=== PATIENT | male | born 1945 | race Caucasian/White ===

== ENCOUNTER 2019-09-03 14:26 | Emergency (ER) | payer MEDICARE, SELFPAY ==
[2019-09-03 14:31] VITALS: BP 107/76; PULSE 98; RESP 20; TEMP 36.1; O2SAT 100
--- NOTE | 2019-09-03 14:47 | ED.EPISTAXIS ---
HPI - Epistaxis General Chief complaint: Epistaxis Stated complaint: Nose bleed Time Seen by Provider: 09/03/19 14:40 Source: patient and RN notes reviewed Mode of arrival: ambulatory Limitations: no limitations History of Present Illness HPI Narrative: Patient presents today complaining of a left-sided epistaxis since 7:00 this morning. States that the bleeding slows down when he is laying down, but starts again when he sits up. It started bleeding when he woke up this morning. Denies pain. Patient takes Plavix. MD complaint: epistaxis Location: left nostril Related Data Home Medications Medication Instructions Recorded Confirmed acetaminophen 500 mg tablet 500 mg PO Q6H PRN 07/18/19 dutasteride 0.5 mg capsule 0.5 mg PO DAILY 07/18/19 fluticasone propionate 50 2 spray NASAL DAILY 07/18/19 mcg/actuation nasal spray,suspension imipramine HCl 10 mg tablet 30 mg PO DAILY tablet 07/18/19 metformin 500 mg tablet 1,000 mg PO BID tablet 07/18/19 rosuvastatin 40 mg tablet 40 mg PO DAILY 07/18/19 terazosin 5 mg capsule 5 mg PO DAILY 07/18/19 trazodone 100 mg tablet 100 mg PO DAILY tablet 07/18/19 ferrous [id number] conc cap PO 09/03/19 Allergies Allergy/AdvReac Type Severity Reaction Status Date / Time Sulfa (Sulfonamide Allergy Unknown Verified 07/07/17 18:49 Antibiotics) Review of Systems Review of Systems: Narrative: CONSTITUTIONAL: Denies body aches, fever, chills, or sweats. EYES: Denies visual changes, redness, or discharge. ENT: Denies rhinorrhea, congestion, sore throat, or otalgia.+ Epistaxis CARDIOVASCULAR: Denies chest pain, palpitations, or edema. RESPIRATORY: Denies cough or dyspnea. GASTROINTESTINAL: Denies abdominal pain, nausea, vomiting, or diarrhea. GENITOURINARY: Denies dysuria or hematuria. SKIN: Denies rash, itching, or wounds. MUSCULOSKELETAL: Denies back pain, joint pain, or myalgia. NEUROLOGIC: Denies headache, numbness, tingling, or weakness. PSYCH: Denies depression or anxiety. [facility] Social History Social History Smoking status: Never smoker Alcohol intake: never Comments At time of signature, I have reviewed and agree with nursing past medical, surgical, social and family history unless otherwise noted. Please see nursing chart for further information. There is no relevant family history pertinent to the presenting complaint Exam Narrative: Exam Narrative: GENERAL: Well-appearing, well-nourished, and in no acute distress. HEAD: Normocephalic, atraumatic. EYES: EOMI. No redness or drainage. Conjunctivae normal. ENT: Mucous membranes pink and moist. Small amount of blood in posterior oropharynx, but no clot noted. Visualization of the turbinates show a posterior source of bleeding, but direct visualization of source is impossible. No anterior source identified. NECK: Normal AROM. Supple. No lymphadenopathy. CHEST: No respiratory distress. EXTREMITIES: Normal range of motion. No edema. SKIN: Warm, dry, no rash. NEURO: No focal deficits. Alert and oriented x3. Gait steady. PSYCH: Normal affect. No signs of depression or anxiety. Course Course Emergency Course: 1608- Discussed pt with Dr. Vaz in [facility] ER for possible transfer. States that [facility] does not have an ENT sap ppm consultant and to transfer pt to higher level of care. Patient requesting transfer to [facility]. 1613-discussed patient with SHARIFA Fernandez at [facility] ER. Dr. Cat will be the accepting physician for transfer via private vehicle. Vital Signs Vital signs: Vital Signs Temperature 96.9 F L 09/03/19 14:31 Pulse Rate 98 09/03/19 14:31 Respiratory Rate 09/03/19 14:31 Blood Pressure 107/76 09/03/19 14:31 Pulse Oximetry 100 09/03/19 14:31 Temperature 96.9 F L 09/03/19 14:31 Pulse Rate 98 09/03/19 14:31 Respiratory Rate 09/03/19 14:31 Blood Pressure
[2019-09-03] MEDS: PHENYLEPHRINE 1% NA SPR (*BKC) 15 ML BTL 1 SPRAY NASAL (15:07)
== END 2019-09-03 16:22 | disposition short-term general hospital (02) ==
PROVIDERS: Emergency Provider Nurse Practitioner; PCP Family Medicine
DX: R04.0 Epistaxis (principal); Z95.5 Presence of coronary angioplasty implant and graft; E78.00 Pure hypercholesterolemia, unspecified; I10 Essential (primary) hypertension
CPT/HCPCS: 30901; 99212; A9270; G0463

== ENCOUNTER 2019-09-05 16:16 | Emergency (ER) | payer MEDICARE, SELFPAY ==
--- NOTE | 2019-09-05 16:17 | ED.EPISTAXIS ---
HPI - Epistaxis General Chief complaint: Epistaxis Stated complaint: remove nose plug Time Seen by Provider: 09/05/19 16:30 Source: patient and RN notes reviewed Mode of arrival: ambulatory Limitations: no limitations History of Present Illness HPI Narrative: 74 old male presents for removal of a Rhino Rocket that was placed 2 days ago in the left nostril. Reports he has been off Plavix for 2 days due to the nosebleed. Reports throughout the 2 days he has had the Rhino Rocket in place, he has had very mild dripping of blood from the right nostril. MD complaint: epistaxis Related Data Home Medications Medication Instructions Recorded Confirmed acetaminophen 500 mg tablet 500 mg PO Q6H PRN 07/18/19 dutasteride 0.5 mg capsule 0.5 mg PO DAILY 07/18/19 09/05/19 fluticasone propionate 50 2 spray NASAL DAILY 07/18/19 09/05/19 mcg/actuation nasal spray,suspension imipramine HCl 10 mg tablet 30 mg PO DAILY tablet 07/18/19 09/05/19 metformin 500 mg tablet 1,000 mg PO BID tablet 07/18/19 09/05/19 rosuvastatin 40 mg tablet 40 mg PO DAILY 07/18/19 09/05/19 terazosin 5 mg capsule 5 mg PO DAILY 07/18/19 09/05/19 trazodone 100 mg tablet 100 mg PO DAILY tablet 07/18/19 09/05/19 ferrous [id number] conc 1 cap PO 09/03/19 amoxicillin-pot clavulanate tablet 09/05/19 Allergies Allergy/AdvReac Type Severity Reaction Status Date / Time Sulfa (Sulfonamide Allergy Unknown Verified 07/07/17 18:49 Antibiotics) Review of Systems Review of Systems: Narrative: CONSTITUTIONAL: Denies malaise, chills, sweats, or fever. EYES: Denies visual changes, redness, or discharge. ENT: Denies rhinorrhea, congestion, sinus pain, otalgia or sore throat. Reports mild continued [place] CARDIOVASCULAR: Denies chest pain, palpitations, or edema. RESPIRATORY: Denies cough or dyspnea. SKIN: Denies rash or itching. NEUROLOGIC: Denies numbness, weakness, or headache. All systems reviewed & are unremarkable except as noted in HPI and below PMFSH Social History Social History Smoking status: Never smoker Alcohol intake: never Comments At time of signature, agree with nursing past medical, surgical, social and family history. There is no relevant family history pertinent to the presenting complaint Exam Narrative: Exam Narrative: GENERAL: Well-appearing, well-nourished, and in no acute distress. HEAD: Normocephalic, atraumatic. EYES: PERRLA, conjunctivae clear ENT: Nares patent, left turbinates erythematous, no hematoma noted, no visible source of bleeding, no rhinorrhea very small amount of epistaxis from both nostrils. Mucous membranes moist. TM pearly reddy with sharp light reflex bilaterally; no tragal tenderness. Oropharynx without erythema or lesions. Tonsils not enlarged and without exudate. NECK: Supple. No lymphadenopathy. CHEST: No respiratory distress. Speaks in full sentences. HEART: Regular rate and rhythm. SKIN: Warm, dry, no rash. NEURO: Alert and oriented x3. PSYCH: Normal mood and affect Course Course Emergency Course: Patient reports dabbing his right nostril with the tissue over the last 2 days with very small amount of bleeding noted. 6 mL of air removed from cuff of Rhino Rocket, fully deflated. Intact Rhino Rocket successfully removed, no rebleeding noted. Patient is aware of and agrees to treatment plan. Anticipatory guidance given. Patient agrees to follow-up as directed and is aware of reasons to seek care at the emergency department. Portions of this record may have been created with voice recognition software Vital Signs Vital signs: Vital Signs Temperature 97.3 F L 09/05/19 16:25 Pulse Rate 95 09/05/19 16:25 Respiratory Rate 16 09/05/19 16:25 Blood Pressure 106/80 09/05/19 16:25 Pulse Oximetry 100 09/05/19 16:25 Temperature 97.3 F L 09/05/19 16:25 Pulse Rate 95 09/05/19 16:25 Respiratory Rate 16 09/05/19 16
[2019-09-05 16:25] VITALS: BP 106/80; PULSE 95; RESP 16; TEMP 36.3; O2SAT 100
--- NOTE | 2019-09-05 16:50 | PC.NURSE ---
Rhino rocket removed from left nares by Hugo Rivas CLINICAL RESEARCH DIRECTOR without difficulty--minimal dripping of blood noted. Pt norris well
== END 2019-09-05 16:47 | disposition home or self-care (01) ==
PROVIDERS: Emergency Provider Nurse Practitioner; PCP Family Medicine
DX: R04.0 Epistaxis (principal); Z86.73 Personal history of transient ischemic attack (TIA), and cerebral infarction without residual deficits; Z95.1 Presence of aortocoronary bypass graft; E78.00 Pure hypercholesterolemia, unspecified; I10 Essential (primary) hypertension; N40.0 Benign prostatic hyperplasia without lower urinary tract symptoms; E11.9 Type 2 diabetes mellitus without complications
CPT/HCPCS: 99211; G0463

== ENCOUNTER 2019-09-11 00:43 | Day surgery (SDC) | payer MEDICARE, SELFPAY ==
[2019-09-05 13:24] VITALS: BMI 25.4
--- NOTE | 2019-09-10 17:32 | WPDANESEPP ---
Anes - Eval Pre Procedure Procedure: Operation Date: 09/11/19 08:00 Proposed Procedures p Esophagogastroduodenoscopy & Colonoscopy - Casey Hathaway MD Date/Time: 09/10/19 17:32 Pre Op Diagnosis: Iron Deficiency Anemia Patient Data Age: 74 Gender: M Height: 6 ft 2 in Weight: 90 kg Allergies Allergy/AdvReac Type Severity Reaction Status Date / Time Sulfa (Sulfonamide Allergy Unknown Verified 07/07/17 18:49 Antibiotics) Home Medications Medication Instructions Recorded Confirmed Type acetaminophen 500 mg tablet 500 mg PO Q6H PRN 07/18/19 History dutasteride 0.5 mg capsule 0.5 mg PO DAILY 07/18/19 09/05/19 History fluticasone propionate 50 2 spray NASAL DAILY 07/18/19 09/05/19 History mcg/actuation nasal spray,suspension imipramine HCl 10 mg tablet 30 mg PO DAILY tablet 07/18/19 09/05/19 History metformin 500 mg tablet 1,000 mg PO BID tablet 07/18/19 09/05/19 History rosuvastatin 40 mg tablet 40 mg PO DAILY 07/18/19 09/05/19 History terazosin 5 mg capsule 5 mg PO DAILY 07/18/19 09/05/19 History trazodone 100 mg tablet 100 mg PO DAILY tablet 07/18/19 09/05/19 History amlodipine 10 mg tablet 10 mg PO DAILY #90 tablet 07/29/19 09/05/19 Rx clopidogrel 75 mg tablet 75 mg PO DAILY #90 tablet 07/29/19 09/05/19 Rx metoprolol succinate 25 mg 25 mg PO DAILY #90 tablet 07/29/19 09/05/19 Rx tablet,extended release 24 hr ramipril 10 mg capsule 10 mg PO DAILY #90 cap 07/29/19 09/05/19 Rx ferrous [id number] conc 1 cap PO 09/03/19 History amoxicillin-pot clavulanate tablet 09/05/19 History Patient hx anesthesia problems: none Family hx anesthesia problems: none PMFSH Past Medical History Medical History Atherosclerotic heart disease of [place] coronary artery with other forms of angina pectoris Diabetic nephropathy Elevated prostate specific antigen [PSA] Essential (primary) hypertension Iron deficiency anemia secondary to blood loss (chronic) Mixed hyperlipidemia Type 2 diabetes mellitus with unspecified complications Unspecified transient cerebral ischemia Surgical History Surgical History Status post aorto-coronary artery bypass graft Social History Social History Smoking status: Never smoker Alcohol intake: never Exam Day of Procedure 09/10/19 17:32
[2019-09-11 07:09] VITALS: BP 136/87; PULSE 94; RESP 14; TEMP 35.9; O2SAT 100
[2019-09-11 07:17] LABS: Glucose Point of Care 244 (65-105)
[2019-09-11] MEDS: LACTATED RINGERS 1,000 ML 150 ML IV CONT (07:25)
--- NOTE | 2019-09-11 07:38 | WPDANESEFPP ---
Anes - Eval Final PreProcedure Day of Procedure 09/11/19 07:38 Patient weight: normal Heart: regular rate and rhythm Lungs: clear to auscultation Airway: Mallampati scale class II Neurological: alert and oriented Last oral intake: >/= 8 hours ASA classification: III Emergent: no Anesthetic plan: proceed Anesthesia type and monitoring: general GIVS and standard monitoring Informed Consent: The patient's anesthetic plan and its attendant risks and benefits were discussed with the patient/family/POA. Questions were solicited and answers provided to the satisfaction of the patient/family/POA.
--- NOTE | 2019-09-11 08:01 | WPDGICN ---
Assessment and Plan Additional Plan This is a 74-year-old white male patient seen in evaluation at the request of Dr. Shah. Patient also followed by Dr. Brar, Hematology. Patient has a history of coronary artery bypass grafting in August 2018. In April of 2019 he was identified as having iron deficiency anemia. Patient has been seen by Hematology. GI evaluation is felt to be indicated. Patient denies any obvious signs of GI blood loss. He denies abdominal pain he has had no obvious bleeding. He past history is significant for peptic ulcer disease approximately 4 years ago. Past medical history is significant for atherosclerotic heart disease. Status post coronary artery bypass grafting August 2018. Been treated for diabetes. Hyperlipidemia. Has a history of a TIA. Current medications include amlodipine, amoxicillin, Plavix, imipramine, metformin, metoprolol, ramipril, rosuvastatin, terazosin, trazodone. He has an allergy to sulfa. Family history is noncontributory. Physical exam reveals patient to be alert. Vital signs stable. HEENT exam unremarkable. Lungs are clear to auscultation and percussion. Heart is without murmur or extra sounds. Abdominal exam bowel sounds are present soft nontender with no hepatosplenomegaly. Digital external rectal exam is normal. Laboratory red tests reveal a hemoglobin 11.1, macro 38.7, MCV 68. Serum iron is 33, TIBC 421, a% saturation, ferritin of 37. Impression 1. Iron deficiency anemia. 2. Atherosclerotic heart disease. Patient is is status post coronary artery bypass grafting. He remains on Plavix which is a risk factor for bleeding. 3. Distant history of peptic ulcer disease. Plan is to evaluate further with both colonoscopy an EGD. Further recommendations will be given after endoscopy. Iron replacement will be held briefly prior to endoscopy. GI Consult Note Consult date/time: 09/11/19 08:01 HPI: Bhanu Delgado is a 74 year old male [facility] Past Medical History Medical History Atherosclerotic heart disease of [place] coronary artery with other forms of angina pectoris Diabetic nephropathy Elevated prostate specific antigen [PSA] Essential (primary) hypertension Iron deficiency anemia secondary to blood loss (chronic) Mixed hyperlipidemia Type 2 diabetes mellitus with unspecified complications Unspecified transient cerebral ischemia Surgical History Surgical History Status post aorto-coronary artery bypass graft Social History Social History Smoking status: Never smoker Alcohol intake: never Meds Home Medications and Allergies Home Medications Medication Instructions Recorded Confirmed Type dutasteride 0.5 mg capsule 0.5 mg PO DAILY 07/18/19 09/05/19 History fluticasone propionate 50 2 spray NASAL DAILY 07/18/19 09/05/19 History mcg/actuation nasal spray,suspension imipramine HCl 10 mg tablet 30 mg PO DAILY tablet 07/18/19 09/05/19 History metformin 500 mg tablet 1,000 mg PO BID tablet 07/18/19 09/05/19 History rosuvastatin 40 mg tablet 40 mg PO DAILY 07/18/19 09/05/19 History terazosin 5 mg capsule 5 mg PO DAILY 07/18/19 09/05/19 History trazodone 100 mg tablet 100 mg PO DAILY tablet 07/18/19 09/05/19 History amlodipine 10 mg tablet 10 mg PO DAILY #90 tablet 07/29/19 09/05/19 Rx clopidogrel 75 mg tablet 75 mg PO DAILY #90 tablet 07/29/19 09/05/19 Rx metoprolol succinate 25 mg 25 mg PO DAILY #90 tablet 07/29/19 09/05/19 Rx tablet,extended release 24 hr ramipril 10 mg capsule 10 mg PO DAILY #90 cap 07/29/19 09/05/19 Rx amoxicillin-pot clavulanate 1 tablet PO DAILY 09/11/19 09/11/19 History Allergies Allergy/AdvReac Type Severity Reaction Status Date / Time Sulfa (Sulfonamide Allergy Unknown ITCHING/SOB Verified 09/11/19 07:01 Antibiotics) Vital S
[2019-09-11] MEDS: BENZOCAINE (*SP) 60 ML SPRAY CAN (HURRICAINE) 1 SPRAY MUCOUS MEM (08:15)
[2019-09-11 08:42] VITALS: BP 117/74; PULSE 71; RESP 21; O2SAT 98
[2019-09-11 08:46] LABS: Glucose Point of Care 219 (65-105)
[2019-09-11 08:52] VITALS: BP 117/78; PULSE 70; RESP 20; O2SAT 99
[2019-09-11 09:02] VITALS: BP 125/78; PULSE 71; RESP 20; O2SAT 100
[2019-09-11 09:12] VITALS: BP 131/89; PULSE 74; RESP 22; O2SAT 100
== END 2019-09-11 09:17 | disposition home or self-care (01) ==
PROVIDERS: PCP Family Medicine; Visit Provider Internal Medicine Gastroenterology
PROC: 0DJ08ZZ Inspection of Upper Intestinal Tract, Via Natural or Artificial Opening Endoscopic (ICD-10-PCS; CPT 43235; principal; 2019-09-11 08:00)
DX: D50.0 Iron deficiency anemia secondary to blood loss (chronic) (principal); K64.8 Other hemorrhoids; I10 Essential (primary) hypertension; I25.10 Atherosclerotic heart disease of native coronary artery without angina pectoris; E11.21 Type 2 diabetes mellitus with diabetic nephropathy; E78.2 Mixed hyperlipidemia; G45.9 Transient cerebral ischemic attack, unspecified; Z79.84 Long term (current) use of oral hypoglycemic drugs; Z79.02 Long term (current) use of antithrombotics/antiplatelets; Z95.1 Presence of aortocoronary bypass graft; Z87.11 Personal history of peptic ulcer disease
CPT/HCPCS: 45378; 43239; 87081; J2001; J2704; J7120

== ENCOUNTER → 2019-09-26 06:57 | Day surgery (SDC) | payer MEDICARE, SELFPAY ==
--- NOTE | 2019-09-26 06:26 | SUR.OPER ---
Patient brought to GI Lab. Instructions for patient undergoing Capsule Endoscopy reviewed with patient. Consent form signed. Sensor array applied to patient's abdomen and connected to recorded. Patient swallowed capsule with 2 cups of water infused with Simethicone. Patient instructed they may have clear liquids at 0830 this AM and eat or drink at 1030 this AM. Patient instructed to return to GI Lab at 1500 this afternoon for removal of recording device and to call [phone] or to return to the hospital if any nausea and vomiting or abdominal pain is experienced.
== END ==
PROVIDERS: PCP Family Medicine; Visit Provider Internal Medicine Gastroenterology
PROC: 0DJ07ZZ Inspection of Upper Intestinal Tract, Via Natural or Artificial Opening (ICD-10-PCS; CPT 91110; principal; 2019-09-26 07:00)
DX: D50.9 Iron deficiency anemia, unspecified (principal)
CPT/HCPCS: 91110

== ENCOUNTER 2019-09-29 12:49 | Outpatient (CLI) | payer MEDICARE, SELFPAY ==
--- NOTE | ~2019-09-29 | XR_ITS ---
EXAMINATION: XR abdomen/kub 1V DATE: 09/29/2019 13:11 INDICATION: Capsule study for anemia TECHNIQUE: A supine view of the abdomen on 2 radiographs was obtained. COMPARISON: CT dated 07/07/2017 FINDINGS: A couple surgical clips possibly related to prior coronary artery bypass grafting and likely epicardi al pacemaker lead project over the heart and medial left lung base. No other radiopaque foreign julio césar s in the visualized abdomen or pelvis. The lateral side of the descending colon at the left flank is excluded from the [id number]. Normal bowel gas pattern with no dilated loops of bowel to suggest o bstruction. IMPRESSION: 1. Normal bowel gas pattern with no evident radiopaque capsule identified. Of note portion of the lef t flank in the lateral wall of the descending colon is excluded from the [id number]. Reviewed, dictated and finalized at location A. ZENSHIP TEACHER IMPRESSION: 1. Normal bowel gas pattern with no evident radiopaque capsule identified. Of n ote portion of the left flank in the lateral wall of the descending colon is ex cluded from the [id number].
== END 2019-09-29 12:50 | disposition home or self-care (01) ==
LOC: ANHIMG 12:58
PROVIDERS: PCP Family Medicine; Visit Provider Internal Medicine Gastroenterology
DX: D64.9 Anemia, unspecified (principal)
CPT/HCPCS: 74018

== ENCOUNTER 2019-10-10 11:01 | Outpatient (CLI) | payer MEDICARE, SELFPAY ==
[2019-10-10 11:19] LABS: Basophils Absolute Auto 0.1 K/mm3 (0.0-0.1); Basophils Percent Auto 0.7 % (0.2-1.2); Eosinophils Absolute Auto 0.3 K/mm3 (0-0.3); Eosinophils Percent Auto 4.1 % (0-4.4); Hematocrit 48.2 % (42.0-52.0); Hemoglobin 15.3 g/dL (14.0-18.0); Immature Granulocyte Absolute 0.01 K/mm3 (0.00-0.031); Immature Granulocyte Percent A 0.1 % (0-0.5); Lymphocytes Absolute Auto 1.56 K/mm3 (0.9-3.2); Lymphocytes Percent Auto 21.8 % (18.3-44.2); Mean Corpuscular HGB Conc 31.7 g/dl (32-36); Mean Corpuscular Hemoglobin 24.3 pg (26-34); Mean Corpuscular Volume 76.5 fl (80-100); Mean Platelet Volume 9.1 fl (7.4-10.4); Monocytes Absolute Auto 0.4 K/mm3 (0.1-0.6); Monocytes Percent Auto 6.2 % (2.6-8.5); Neutrophils Absolute Auto 4.8 K/mm3 (1.3-6.7); Neutrophils Percent Auto 67.1 % (45.5-73.1); Platelet Count Result 257 k/mm3 (150-375); Red Cell Distribution Width 20.7 % (11.5-14.5); White Blood Count 7.1 K/mm3 (4.5-10.0)
[2019-10-17 16:10] LABS: CALR Exon 9 Mutation Not Detected (Not Detected); CSF3R Exon 14/17 Mutation Not Detected (Not Detected); JAK2 Exon 12 Mutation Not Detected (Not Detected); JAK2 V617F Mutation Not Detected (Not Detected); MPL Exon 10 Mutation Not Detected (Not Detected); Specimen Source Blood
== END 2019-10-10 11:02 | disposition home or self-care (01) ==
LOC: ANHLAB 11:03
PROVIDERS: PCP Family Medicine; Visit Provider Internal Medicine Hematology & Oncology
DX: D75.1 Secondary polycythemia (principal)
CPT/HCPCS: 36415; 81219; 81270; 81402; 81403; 81479; 85025

== ENCOUNTER 2020-12-03 09:53 | Outpatient (CLI) | payer MEDICARE, SELFPAY ==
[2020-12-03 10:12] LABS: Basophils Absolute Auto 0.1 K/mm3 (0.0-0.1); Basophils Percent Auto 1.2 % (0.2-1.2); Eosinophils Absolute Auto 1.1 K/mm3 (0-0.3); Eosinophils Percent Auto 13.2 % (0-4.4); Hematocrit 53.4 % (42.0-52.0); Hemoglobin 17.9 g/dL (14.0-18.0); Immature Granulocyte Absolute 0.02 K/mm3 (0.00-0.031); Immature Granulocyte Percent A 0.2 % (0-0.5); Lymphocytes Absolute Auto 1.97 K/mm3 (0.9-3.2); Lymphocytes Percent Auto 23.1 % (18.3-44.2); Mean Corpuscular HGB Conc 33.5 g/dl (32-36); Mean Corpuscular Hemoglobin 27.7 pg (26-34); Mean Corpuscular Volume 82.5 fl (80-100); Mean Platelet Volume 8.5 fl (7.4-10.4); Monocytes Absolute Auto 0.5 K/mm3 (0.1-0.6); Monocytes Percent Auto 5.5 % (2.6-8.5); Neutrophils Absolute Auto 4.9 K/mm3 (1.3-6.7); Neutrophils Percent Auto 56.8 % (45.5-73.1); Platelet Count Result 216 k/mm3 (150-375); Red Blood Count 6.47 M/mm3 (4.6-6.20); Red Cell Distribution Width 13.4 % (11.5-14.5); White Blood Count 8.5 K/mm3 (4.5-10.0)
[2020-12-03 13:54] LABS: Iron 83 ug/dL (49-181)
[2020-12-03 13:56] LABS: Anion Gap 7 mmol/L (8-16); Blood Urea Nitrogen 18 mg/dL (9-20); Calcium 9.7 mg/dL (8.4-10.2); Carbon Dioxide 27 mmol/L (22-30); Chloride 104 mmol/L (98-107); Estimated Glomerular Filt Rate > 60; Glucose 130 mg/dL (75-110); Potassium 5.1 mmol/L (3.4-5.0); Sodium 138 mmol/L (137-145)
[2020-12-03 14:03] LABS: Percent Iron Saturation 21 % (20-50)
== END 2020-12-03 09:54 | disposition home or self-care (01) ==
PROVIDERS: PCP Family Medicine; Visit Provider Internal Medicine Hematology & Oncology
DX: D50.9 Iron deficiency anemia, unspecified (principal)
CPT/HCPCS: 36415; 80048; 82728; 83540; 83550; 85025

== ENCOUNTER 2021-04-08 09:30 | Outpatient (CLI) | payer MEDICARE, SELFPAY ==
[2021-04-08 09:49] LABS: Basophils Absolute Auto 0.1 K/mm3 (0.0-0.1); Eosinophils Absolute Auto 0.4 K/mm3 (0-0.3); Eosinophils Percent Auto 5.2 % (0-4.4); Hematocrit 51.7 % (42.0-52.0); Immature Granulocyte Absolute 0.02 K/mm3 (0.00-0.031); Immature Granulocyte Percent A 0.3 % (0-0.5); Lymphocytes Absolute Auto 2.06 K/mm3 (0.9-3.2); Mean Corpuscular HGB Conc 32.9 g/dl (32-36); Mean Corpuscular Hemoglobin 26.4 pg (26-34); Mean Corpuscular Volume 80.3 fl (80-100); Mean Platelet Volume 8.5 fl (7.4-10.4); Monocytes Absolute Auto 0.5 K/mm3 (0.1-0.6); Monocytes Percent Auto 6.8 % (2.6-8.5); Neutrophils Absolute Auto 4.8 K/mm3 (1.3-6.7); Neutrophils Percent Auto 60.7 % (45.5-73.1); Platelet Count Result 252 k/mm3 (150-375); Red Blood Count 6.44 M/mm3 (4.6-6.20); Red Cell Distribution Width 13.3 % (11.5-14.5); White Blood Count 7.9 K/mm3 (4.5-10.0)
== END 2021-04-08 09:31 | disposition home or self-care (01) ==
PROVIDERS: PCP Family Medicine; Visit Provider Internal Medicine Hematology & Oncology
DX: D50.9 Iron deficiency anemia, unspecified (principal)
CPT/HCPCS: 36415; 85025

== ENCOUNTER 2022-04-11 11:12 | Outpatient (CLI) | payer MEDICARE, SELFPAY ==
[2022-04-11 11:30] LABS: Basophils Percent Auto 0.6 % (0.2-1.2); Eosinophils Absolute Auto 0.3 K/mm3 (0-0.3); Eosinophils Percent Auto 4.8 % (0-4.4); Hematocrit 51.2 % (42.0-52.0); Hemoglobin 16.2 g/dL (14.0-18.0); Immature Granulocyte Absolute 0.02 K/mm3 (0.00-0.031); Immature Granulocyte Percent A 0.3 % (0-0.5); Lymphocytes Absolute Auto 1.65 K/mm3 (0.9-3.2); Lymphocytes Percent Auto 25.7 % (18.3-44.2); Mean Corpuscular HGB Conc 31.6 g/dl (32-36); Mean Platelet Volume 8.6 fl (7.4-10.4); Monocytes Absolute Auto 0.5 K/mm3 (0.1-0.6); Monocytes Percent Auto 7.6 % (2.6-8.5); Neutrophils Absolute Auto 3.9 K/mm3 (1.3-6.7); Platelet Count Result 228 k/mm3 (150-375); Red Blood Count 6.48 M/mm3 (4.6-6.20); Red Cell Distribution Width 15.5 % (11.5-14.5); White Blood Count 6.4 K/mm3 (4.5-10.0)
[2022-04-11 11:33] LABS: Blood Urea Nitrogen 16 mg/dL (8-26); Carbon Dioxide 27 mmol/L (22-30); Chloride 103 mmol/L (98-109); Estimated Glomerular Filt Rate > 60; Glucose 109 mg/dL (70-105); Ionized Calcium (POC) 1.28 mmol/L (1.11-1.31); Potassium 4.7 mmol/L (3.5-4.9); Sodium 141 mmol/L (138-146)
== END 2022-04-11 11:13 | disposition home or self-care (01) ==
LOC: ANHLAB 11:15
PROVIDERS: PCP Family Medicine; Visit Provider Internal Medicine Hematology & Oncology
DX: D50.0 Iron deficiency anemia secondary to blood loss (chronic) (principal); D75.1 Secondary polycythemia
CPT/HCPCS: 36415; 80047; 85025

== ENCOUNTER 2023-04-18 09:30 | Outpatient (CLI) | payer MEDICARE, SELFPAY ==
[2023-04-18 09:50] LABS: Basophils Absolute Auto 0.1 K/mm3 (0.0-0.1); Eosinophils Absolute Auto 0.2 K/mm3 (0-0.3); Eosinophils Percent Auto 3.4 % (0-4.4); Hematocrit 50.1 % (42.0-52.0); Immature Granulocyte Absolute 0.01 K/mm3 (0.00-0.031); Immature Granulocyte Percent A 0.1 % (0-0.5); Lymphocytes Absolute Auto 1.77 K/mm3 (0.9-3.2); Lymphocytes Percent Auto 25.9 % (18.3-44.2); Mean Corpuscular HGB Conc 31.9 g/dl (32-36); Mean Corpuscular Hemoglobin 25.7 pg (26-34); Mean Corpuscular Volume 80.4 fl (80-100); Mean Platelet Volume 8.7 fl (7.4-10.4); Monocytes Absolute Auto 0.5 K/mm3 (0.1-0.6); Monocytes Percent Auto 7.3 % (2.6-8.5); Neutrophils Absolute Auto 4.3 K/mm3 (1.3-6.7); Neutrophils Percent Auto 62.3 % (45.5-73.1); Platelet Count Result 242 k/mm3 (150-375); Red Blood Count 6.23 M/mm3 (4.6-6.20); Red Cell Distribution Width 15.4 % (11.5-14.5); White Blood Count 6.8 K/mm3 (4.5-10.0)
[2023-04-18 09:55] LABS: Blood Urea Nitrogen 20 mg/dL (8-26); Carbon Dioxide 26 mmol/L (22-30); Chloride 102 mmol/L (98-109); Estimated Glomerular Filt Rate 49; Glucose 174 mg/dL (70-105); Ionized Calcium (POC) 1.19 mmol/L (1.11-1.31); Potassium 4.1 mmol/L (3.5-4.9); Sodium 139 mmol/L (138-146)
[2023-04-18 13:53] LABS: Alanine Aminotransferase 24 U/L (6-50); Albumin Level 4.3 g/dL (3.5-5.1); Alkaline Phosphatase 88 U/L (38-126); Anion Gap 11 mmol/L (8-16); Aspartate Amino Transferase 25 U/L (17-59); Bilirubin,Total 0.6 mg/dL (0.2-1.3); Blood Urea Nitrogen 19 mg/dL (9-20); Calcium 9.2 mg/dL (8.4-10.2); Carbon Dioxide 24 mmol/L (22-30); Chloride 103 mmol/L (98-107); Estimated Glomerular Filt Rate 57; Glucose 175 mg/dL (65-110); Potassium 4.2 mmol/L (3.4-5.0); Sodium 138 mmol/L (137-145)
== END 2023-04-18 09:31 | disposition home or self-care (01) ==
LOC: ANHLAB 09:32
PROVIDERS: PCP Family Medicine; Visit Provider Internal Medicine Hematology & Oncology
DX: D50.0 Iron deficiency anemia secondary to blood loss (chronic) (principal)
CPT/HCPCS: 36415; 80047; 80053; 85025

== ENCOUNTER 2023-09-28 09:17 | Outpatient (CLI) | payer MEDICARE, SELFPAY ==
[2023-09-28 20:11] LABS: Anion Gap 7 mmol/L (8-16); Blood Urea Nitrogen 15 mg/dL (9-20); Calcium 9.5 mg/dL (8.4-10.2); Carbon Dioxide 27 mmol/L (22-30); Chloride 106 mmol/L (98-107); Estimated Glomerular Filt Rate 59; Glucose 164 mg/dL (65-110); Potassium 4.2 mmol/L (3.4-5.0); Sodium 140 mmol/L (137-145)
[2023-09-28 20:30] LABS: Creatinine Urine 62.4 mg/dL
[2023-09-28 20:34] LABS: MALB Creatinine Ratio 288.6 mg/g (0-30); Microalbumin Urine Random 180.1 mg/L (0-16.7)
[2023-09-28 21:22] LABS: Hepatitis C Virus Antibody Negative (Negative)
== END 2023-09-28 09:18 | disposition home or self-care (01) ==
PROVIDERS: PCP Family Medicine; Visit Provider Nurse Practitioner Family
DX: E78.2 Mixed hyperlipidemia (principal); E78.6 Lipoprotein deficiency; E11.8 Type 2 diabetes mellitus with unspecified complications
CPT/HCPCS: 36415; 80048; 82043; 86803

== ENCOUNTER 2023-10-01 13:39 | Outpatient (CLI) | payer MEDICARE, SELFPAY ==
[2023-10-01 18:05] LABS: Hemoglobin A1C 7.9 % (<5.7)
== END 2023-10-01 13:40 | disposition home or self-care (01) ==
LOC: ANHGOSHLAB 13:40
PROVIDERS: PCP Family Medicine; Visit Provider Family Medicine
DX: E11.8 Type 2 diabetes mellitus with unspecified complications (principal)
CPT/HCPCS: 36415; 83036

== ENCOUNTER 2023-10-11 10:57 | Outpatient (CLI) | payer MEDICARE, SELFPAY | END 2023-10-11 10:58 | disposition home or self-care (01) | PROVIDERS: PCP Family Medicine; Visit Provider Family Medicine | DX: Z46.1 Encounter for fitting and adjustment of hearing aid (principal); H90.3 Sensorineural hearing loss, bilateral | CPT/HCPCS: 92557; 92567 ==

== ENCOUNTER 2023-10-22 09:55 | Outpatient (RCR) | payer MEDICARE, SELFPAY | END 2024-01-20 23:59 | disposition home or self-care (01) | LOC: ANHAUDASC 09:55 | PROVIDERS: PCP Family Medicine; Visit Provider Family Medicine | DX: Z46.1 Encounter for fitting and adjustment of hearing aid (principal) | CPT/HCPCS: V5014 ==

== ENCOUNTER 2024-04-21 09:52 | Outpatient (CLI) | payer MEDICARE, SELFPAY ==
[2024-04-21 10:09] LABS: Basophils Absolute Auto 0.1 K/mm3 (0.0-0.1); Basophils Percent Auto 0.9 % (0.2-1.2); Eosinophils Absolute Auto 0.3 K/mm3 (0-0.3); Eosinophils Percent Auto 3.8 % (0-4.4); Hematocrit 46.2 % (42.0-52.0); Hemoglobin 14.8 g/dL (14.0-18.0); Immature Granulocyte Absolute 0.02 K/mm3 (0.00-0.031); Immature Granulocyte Percent A 0.3 % (0-0.5); Lymphocytes Absolute Auto 1.51 K/mm3 (0.9-3.2); Lymphocytes Percent Auto 22.8 % (18.3-44.2); Mean Corpuscular Volume 81.2 fl (80-100); Mean Platelet Volume 8.9 fl (7.4-10.4); Monocytes Absolute Auto 0.5 K/mm3 (0.1-0.6); Monocytes Percent Auto 6.9 % (2.6-8.5); Neutrophils Absolute Auto 4.3 K/mm3 (1.3-6.7); Neutrophils Percent Auto 65.3 % (45.5-73.1); Platelet Count Result 237 k/mm3 (150-375); Red Blood Count 5.69 M/mm3 (4.6-6.20); Red Cell Distribution Width 15.4 % (11.5-14.5); White Blood Count 6.6 K/mm3 (4.5-10.0)
[2024-04-21 10:13] LABS: Blood Urea Nitrogen 16 mg/dL (8-26); Carbon Dioxide 21 mmol/L (22-30); Chloride 106 mmol/L (98-109); Estimated Glomerular Filt Rate 39; Glucose 168 mg/dL (70-105); Potassium 3.7 mmol/L (3.5-4.9); Sodium 140 mmol/L (138-146)
== END 2024-04-21 09:53 | disposition home or self-care (01) ==
LOC: ANHLAB 09:54
PROVIDERS: PCP Family Medicine; Visit Provider Internal Medicine Hematology & Oncology
DX: D50.0 Iron deficiency anemia secondary to blood loss (chronic) (principal)
CPT/HCPCS: 36415; 80047; 85025

== ENCOUNTER 2024-10-09 08:26 | Outpatient (CLI) | payer MEDICARE, SELFPAY ==
--- OUTSIDE RECORDS SUMMARY | 2024-10-09 08:41 | XMS_ITS | Clinical Summary ---
[facility] Address [address] [place] [address] Care Team Providers Care Electric Motor Analyst Name Role Phone Isidro Shah MD Primary Care Provider [phone] Allergies Active Allergy Reactions Criticality Noted Date Comments Adhesive Tape-Silicones Hives,Rash High 08/09/2018 Sulfa (Sulfonamide Antibiotics) Rash Medium 12/2017 Medications traZODone (DESYREL) 100 mg tablet Take 100 mg by mouth. Active terazosin (HYTRIN) 5 mg capsule Take 5 mg by mouth. Active rosuvastatin (CRESTOR) 40 mg tablet Take 40 mg by mouth. 9 Active ramipril (ALTACE) 10 mg capsule Take 10 mg by mouth. Active metoprolol tartrate (LOPRESSOR) 50 mg tablet Take 50 mg by mouth. Active metFORMIN (GLUCOPHAGE) 500 mg tablet Take 500 mg by mouth. Active imipramine HCl (TOFRANIL) 10 mg tablet Take 30 mg by mouth. Active fluticasone propionate (FLONASE) 50 mcg/spray [place], Suspension nasal inhaler Administer 1 [place] in each nostril. Active dutasteride (AVODART) 0.5 mg Capsule Take 0.5 mg by mouth. Active clopidogrel (PLAVIX) 75 mg Tablet Take 75 mg by mouth. Active amLODIPine (NORVASC) 10 mg tablet Take 10 mg by mouth. Active ferrous fumarate (FERRETTS) 325 mg (106 mg iron) Tablet Take 325 mg by mouth. Active Trulicity 1.5 mg/0.5 mL injection 0 Active Jardiance 25 mg tablet TK 1 T PO D 0 Active triamcinolone acetonide (KENALOG) 0.1 % Cream APPLY EXTERNALLY TO THE AFFECTED AREA FOUR TIMES DAILY 1 Active Active Problems Problem Noted Date Diagnosed Date Iron deficiency anemia due to chronic blood loss 08/05/2019 Encounters Date Type Department Care Team Description 09/23/2024 External Device Data [facility] ABSTRACTION Provider, Abstract 08/27/2024 External Device Data [facility] ABSTRACTION Provider, Abstract 08/27/2024 External Device Data [facility] ABSTRACTION Provider, Abstract from Last 3 Months Family History Medical History Relation Name Comments Heart Disease Brother 1 Diabetes Mother Heart Disease Mother Stroke Mother Heart Disease Sister 1 Relation Name Status Comments Brother 1 Alive Brother 2 Alive Brother 3 Alive Brother 4 Alive Brother 5 Alive Father Alive Mother Sister 1 Alive Sister 2 Alive Sister 3 Alive Sister 4 Alive Sister 5 Alive Social History Tobacco Use Types Packs/Day Years Used Date Smoking Tobacco: Never Smokeless Tobacco: Never Tobacco Cessation:Counseling Given: Not Answered Alcohol Use Standard Drinks/Week Comments Not Currently 0 (1 standard drink = 0.6 oz pur e alcohol) Sex and Gender Information Value Date Recorded Sex Assigned at Not on file 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 Gender Identity Not on file Sexual Orientation Not on file Last Filed Vital Signs Vital Sign Reading Time Taken Comments Blood Pressure 107/76 04/21/2024 10:23 AM CDT Pulse 90 04/21/2024 10:23 AM CDT Temperature 36.6 C (97.8 F) 04/21/2024 10:23 AM CDT Respiratory Rate 16 04/21/2024 10:23 AM CDT Oxygen Saturation 95% 04/21/2024 10:23 AM CDT Inhaled Oxygen Concentration - - Weight 78.9 kg (174 lb) 04/21/2024 10:23 AM CDT Height 188 cm (6' 2 ) 04/11/2022 11:41 AM CDT Body Mass Index 22.34 04/11/2022 11:41 AM CDT Plan of Treatment Upcoming Encounters Date Type Department Care Team (Late st Contact Info) Description 04/21/2025 10:00 AM CDT Office Visit [facility] Oncology and Hematology - Aidan Jewel Vee [address] [place] [address] [phone] Clemente Childs MD [facility] [address] [place] [address] Health Maintenance Due Date Last Done Comments DTAP/TDAP/TD VACCINES (1 - Tdap) 1964 PNEUMOCOCCAL VACCINE 50+ YEARS (1 of 2 - PCV) 02/22/19 66 ZOSTER VACCINE (1 of 2) 02/23/1996 RSV VACCINE (60+ or ) (1 - 1-dose 75+ series) 2021 INFLUENZA VACCINE (#1) 2024 05/28/2020 COLORECTAL SCREENING Discontinued 09/11/2019 Colorectal Cancer Screening Discontinued FIT-DNA Q 3 years Discontinued FIT/FOBT Q 1 year Discontinued Flex Sig/CT Colonography Q 5 [place] [address] [facility] [id number] Care Teams Electric Motor Analyst Relationship Specialty Start Date End Date Isdiro Shah MD PCP - General Family Practice 07/24/19
--- OUTSIDE RECORDS SUMMARY | 2024-10-09 08:41 | XMS_ITS | Clinical Summary ---
Author Organization [facility] Address [address] [place] [address] Care Team Providers Care Qa Specialist Name Role Phone Kim Shah MD Primary Care Provider [phone] Kim Garcia MD Unavailable [phone] Allergies Active Allergy Reactions Criticality Noted Date Comments Adhesive Tape-Silicones Hives,Rash Medium 08/09/2018 Sulfa (Sulfonamide Antibiotics) Rash Medium 12/2017 Medications dutasteride (AVODART) 0.5 mg capsuleIndicatio ns:benign prostatic hyperplasia with lower urinary tract sx Take 1 capsule (0.5 mg total) by mouth daily Active rosuvastatin (CRESTOR) 40 mg tablet Take 1 tablet (40 mg total) by mouth daily. 30 tablet 11 9 Active clopidogrel (PLAVIX) 75 mg tablet Take 1 tablet (75 mg total) by mouth daily Active fluticasone (FLONASE) 50 mcg/actuation nasal spray Administer 1 spray into each nostril daily Active imipramine (TOFRANIL) 10 mg tablet Take 3 tablets (30 mg total) by mouth daily Active metFORMIN (GLUCOPHAGE) 500 mg tablet Take 1 tablet (500 mg total) by mouth 2 (two) times a day with meals Active terazosin (HYTRIN) 5 mg capsule Take 1 capsule (5 mg total) by mouth nightly Active traZODone (DESYREL) 100 mg tablet Take 1 tablet (100 mg total) by mouth nightly Active ramipriL (ALTACE) 10 mg capsuleIndicatio ns:hypertension Take 1 capsule (10 mg total) by mouth daily Active acetaminophen (TYLENOL) 500 mg tabletIndication s:Pain Take 2 tablets (1,000 mg total) by mouth every 6 (six) hours as needed for pain (more mild pain. not to take with Percocet) Active metoprolol (LOPRESSOR) 50 mg tablet Take 1 tablet (50 mg total) by mouth daily Active Trulicity 1.5 mg/0.5 mL pen injector 1 Active Jardiance 25 mg tablet Take 1 tablet (25 mg total) by mouth daily 1 Active metoprolol XL (TOPROL-XL) 25 mg extended release tablet Take 1 tablet (25 mg total) by mouth daily 2 Active ALPRAZolam (XANAX) 0.25 mg tablet Take by mouth 3 (three) times a day as needed 4 Active amLODIPine (NORVASC) 5 mg tablet TAKE 1 TABLET(5 MG) BY MOUTH DAILY 90 tablet 3 4 Active Active Problems Problem Noted Date Diagnosed Date Nonrheumatic aortic valve stenosis 09/09/2021 Assessment & Plan (09/09/2021 10:34 AM DRY CHAIN OPERATOR): Aortic stenosis was mild when assessed in 2019. He has no symptoms at this time, and by exam it is likely still mild. Will obtain an echo Doppler. Sinus tachycardia 12/13/2018 Assessment & Plan (12/13/2018 9:40 AM CDT): Cause of tachycardia is unclear. It sounds as if it has been noticed at cardiac rehab. He is taking metoprolol. However, he is also on imipramine, trazodone, desyrel, and amlodipine, all of which can cause some tachycardia. My greatest concern, however, would be that he may have post pericardiotomy syndrome, as he is also having a great deal of fatigue. Will obtain sedimentation rate, echo, and TSH, and make further recommendations pending these results. Fatigue 12/13/2018 Assessment & Plan (12/13/2018 9:41 AM CDT): He is not recovering from his bypass surgery as well as I would expect him in terms of his energy level, sleep pattern, and appetite. Will evaluate for post pericardiotomy syndrome, as described above. S/P CABG x 5 09/19/2018 Essential hypertension 08/10/2017 Assessment & Plan (09/09/2021 10:33 AM DRY CHAIN OPERATOR): Blood pressure is a little on the low side. Will decrease amlodipine from 10 mg daily to 5 mg daily and continue metoprolol 50 mg daily, Altace 10 mg daily, and terazosin 5 mg nightly. He is to monitor his blood pressure at home. Assessment & Plan (09/10/2020 4:10 PM DRY CHAIN OPERATOR): Blood pressure is adequately controlled on current regimen. No change was made. Assessment & Plan (08/23/2019 10:51 AM DRY CHAIN OPERATOR): Blood pressure is adequately controlled on current regimen. No change was made. Assessment & Plan (12/13/2018 9:38 AM CDT): Blood pressure is adequately controlled on current regimen. No change was made. Assessment & Plan (09/13/2018 9:34 AM DRY CHAIN OPERATOR): Blood pressure is adequately controlled on current regimen. No change was made. Assessment & Plan (08/13/2018 6:16 PM DRY CHAIN OPERATOR): Blood pressure is adequately controlled on current regimen. No change was made. Assessment & Plan (08/09/2018 3:38 PM DRY CHAIN OPERATOR): Blood pressure is adequately controlled on current regimen. No change was made. Assessment & Plan (08/10/2017 6:35 PM DRY CHAIN OPERATOR): Not ideally controlled. Increase metoprolol from 25 to 50 mg daily. He is to continue monitoring his heart rate and blood pressure and will let me know if they do not normalize. Dyslipidemia 08/10/2017 Assessment & Plan (09/09/2021 10:33 AM DRY CHAIN OPERATOR): Point of care lipids today show an LDL of 42. Continue rosuvastatin 40 mg daily. Assessment & Plan (09/10/2020 4:10 PM DRY CHAIN OPERATOR): On chronic lipid lowering therapy with good control. No changes made. Assessment & Plan (08/23/2019 10:52 AM DRY CHAIN OPERATOR): On chronic lipid lowering therapy with good control. No changes made. Assessment & Plan (12/13/2018 9:41 AM CDT): On high-intensity statin therapy. Assessment & Plan (09/13/2018 9:34 AM DRY CHAIN OPERATOR): Continue high-intensity statin therapy. Assessment & Plan (08/09/2018 3:39 PM DRY CHAIN OPERATOR): Lipids are not controlled. Will increase rosuvastatin to 40 mg daily. Assessment & Plan (08/10/2017 6:36 PM DRY CHAIN OPERATOR): On chronic lipid-lowering therapy. LDL today is 94. Continue atorvastatin 80 mg daily. Coronary artery disease of n ative artery of [place] heart with stable angina pectoris ([facility]) 06/18/2015 Overview (11/10/2016): Coronary arteriosclerosis in [place] artery Assessment & Plan (09/09/2021 10:34 AM DRY CHAIN OPERATOR): Asymptomatic following coronary artery bypass grafting. Continue Plavix 75 mg daily and metoprolol 50 mg daily. His follow-up in one year will be with Dr. Garcia. Assessment & Plan (09/10/2020 4:10 PM DRY CHAIN OPERATOR): Asymptomatic following extensive bypass surgery in 2019. Continue anti-platelet therapy. Assessment & Plan (08/23/2019 10:51 AM DRY CHAIN OPERATOR): Asymptomatic following recent bypass surgery. Continue clopidogrel. Assessment & Plan (12/13/2018 9:38 AM CDT): No chest discomfort. Electrocardiogram is nonischemic. Continue clopidogrel. Assessment & Plan (09/13/2018 9:35 AM DRY CHAIN OPERATOR): Recent coronary artery bypass grafting. He remains on clopidogrel. Needs to begin phase two cardiac rehab at [facility]. Also advised of the importance of good control of his diabetes to prevent progression of coronary artery disease. Assessment & Plan (08/13/2018 6:15 PM DRY CHAIN OPERATOR): Severe three-vessel coronary artery disease, not amenable to coronary intervention. Holding Plavix and monitoring platelet function to determine optimal timing of surgery. Continue heparin and aspirin Assessment & Plan (08/10/2017 6:34 PM DRY CHAIN OPERATOR): No symptoms of myocardial ischemia. Continue anti-platelet therapy. Resolved Problems Problem Noted Date Diagnosed Date Resolved Date Angina pectoris, unstable 08/09/2018 Overview (08/09/2018): Added automatically from request for surgery [id number] Assessment & Plan (08/09/2018 3:37 PM DRY CHAIN OPERATOR): New onset exertional angina two months ago, persistent since. Symptoms come on at a low level of exertion, and have been relieved by rest. EKG shows nonspecific ST- T abnormalities which are new compared with two years ago. I am shocked that he did not call when these symptoms developed. Recommend cardiac catheterization in the near future. In the meantime, he is to be a c ouch potato . I have sent in a prescription for nitroglycerin and advised him on how to use it. I advised him to call 911 for any chest discomfort unrelieved by rest or nitroglycerin. Encounters Date Type Department Care Team Description 09/23/2024 Results Follow-Up [facility] [address] [address] Kim Garcia MD 09/17/2024 10:59 AM DRY CHAIN OPERATOR - 09/17/2024 11:59 PM DRY CHAIN OPERATOR Hospital Encounter [facility] OP Cardiac Testing [address] [place] [address] Nonrheumatic aortic valve stenosis Discharge Disposition: Discharge to home or self care from Last 3 Months Surgical History Surgery Date Site/Laterality Comments CORONARY STENT PLACEMENT Coronary Stent Placement UMBILICAL HERNIA REPAIR 08/06/2013 - 08/05/2014 Hernia repair, umbilical CARDIAC CATHETERIZATION CORONARY ARTERY BYPASS GRAFT Medical History Medical History Date Comments Coronary artery disease Diabetes mellitus (HCC) Hypertension Cerebrovascular accident (CVA) (HCC) 1997 Stroke SHIN (iron deficiency anemia) Family History Medical History Relation Name Comments Coronary artery disease Father 2 Marah nary Artery Bypass Graft; Relation Name Status Comments Father 1 Alive Father 2 Social History Tobacco Use Types Packs/Day Years Used Date Smoking Tobacco: Never Smokeless Tobacco: Never Alcohol Use Standard Drinks/Week Comments Never 0 (1 standard drink = 0.6 oz pur e alcohol) rare AUDIT-C Answer Date Recorded Frequency of Alcohol Consumption Never 09/06/2020 Average Number of Drinks Not on file 021 Frequency of Binge Drinking Not on file 08/2020 Sex and Gender Information Value Date Recorded Sex Assigned at Not on file Legal Sex Male 9:24 PM DRY CHAIN OPERATOR Gender Identity Not on file Sexual Orientation Not on file Obstetrics History Last Filed Vital Signs Vital Sign Reading Time Taken Comments Blood Pressure 122/60 10/04/2023 12:28 PM DRY CHAIN OPERATOR Pulse 92 10/04/2023 12:28 PM DRY CHAIN OPERATOR Temperature 36.5 C (97.7 F) 09/03/2019 5:30 PM DRY CHAIN OPERATOR Respiratory Rate 16 09/03/2019 7:05 PM DRY CHAIN OPERATOR Oxygen Saturation 99% 10/04/2023 12:28 PM DRY CHAIN OPERATOR Inhaled Oxygen Concentration - - Weight 81.6 kg (180 lb) 10/04/2023 12:28 PM DRY CHAIN OPERATOR Height 188 cm (6' 2.02 ) 10/04/2023 12:28 PM DRY CHAIN OPERATOR Body Mass Index 23.1 10/04/2023 12:28 PM DRY CHAIN OPERATOR Plan of Treatment Health Maintenance Due Date Last Done Comments Depression Screening 1945 Fall Risk Assessment 1945 Hepatitis C Screening 1945 DTaP/Tdap/Td Vaccine (1 - Tdap) 1957 Hepatitis B Screening 02/23/1964 Pneumococcal vaccine 65+ (1 of 2 - PCV) 1965 Well Visit 65+ 2011 Covid-19 Vaccine ( - season) 2024 07/12/2021, 10/29/2020, 10/04/2020 Influenza Vaccine (#1) 2024 05/24/2021, 2017 Zoster Vaccine Completed 05/31/2021, 03/29/2021 Procedures Procedure Name Priority Date/Time Associated Diagnosis Comments TRANSTHORACIC ECHO (TTE) COMPLETE W DOPPLER/CF WO CONTRAST Routine 09/17/2024 11:46 AM DRY CHAIN OPERATOR Nonrheumatic aortic valve stenosis from Last 3 Months Results * TRANSTHORACIC ECHO (TTE) COMPLETE W DOPPLER/CF WO CONTRAST (09/17/2024 11:46 AM DRY CHAIN OPERATOR) LV EF 60 % CONS SCIMAGE Anatomical Region Laterality Modality Ultrasound 09/17/2024 11:0 9 AM DRY CHAIN OPERATOR Narrative 09/18/2024 9:36 PM DRY CHAIN OPERATOR [facility] [address] [place] [id number] ECHOCARDIOGRAM Patient Name: ELSA DELGADO : 1945 (79y 6m) Gender: M Study Date: 09/17/2024 11:09:40 AM Ht(Inch): 74 Wt(Lb): 180.12 BSA: 2.07 Medart Operator: KEVON Order Provider: KIM GARCIA Heart Rate: 66 BMI: 23.12 BP: 122/60 Ref Provider: KIM GARCIA PROCEDURES: Echocardiographic Report: Transthoracic Echocardiogram with complete 2D, M-Mode, Spectral and Color Flow Doppler examination. 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 MEASUREMENTS: 2D/MM Value Range Doppler Value Range IVSd 2D 1.15 cm [ 0.60 - 1.00 ] AV Peak Yasmany 3 m/s [ 1 - 2 ] LVIDd 2D 4.87 cm [ 4.20 - 5.80 ] AV Peak PG 45.4 mmHg LVIDs 2D 2.72 cm [ 2.50 - 4.00 ] AV Mean PG 28 mmHg LVPWd 2D 1.15 cm [ 0.60 - 1.00 ] AV VTI 77.2 cm Estimated EF 60 % YAMILETH V max 0.7 cm2 LA Dimen 2D 3.81 cm [ 3.00 - 4.00 ] YAMILETH VTI 0.7 cm2 AoR Diam 2D 3.26 cm [ 3.10 - 3.70 ] LVOT Peak Yasmany 0.73 m/s [ 0.70 - 1.10 ] AoR Diam 2D Index 1.57 LVOT Diam 2.0 cm RA Volume 21.80 ml LVOT Peak PG 2 mmHg TAPSE 1.24 cm [ 1.71 - 5.00 ] LVOT VTI 17.8 cm MV Peak PG 6 mmHg MV Mean PG 2 mmHg MV E Peak Yasmany 0.6 m/s [ 0.6 - 1.3 ] MV A Peak Yasmany 0.8 m/s [ 1.0 - 1.2 ] MV PHT 87.0 ms [ 20.0 - 100.0 ] MV Decel Time 256.0 ms [ 104.0 - 258.0 ] MVA PHT 2.5 ms MV E/A Ratio 0.8 TR Peak Yasmany 1.7 m/s [ 1.0 - 2.8 ] TR Peak PG 24 mmHg RVSP 27.0 mmHg [ 10.0 - 36.0 ] RA Pressure 3.0 mmHg PV Peak Yasmany 1.1 m/s [ 0.4 - 0.8 ] PV Peak PG 5 mmHg Lat E` Yasmany 0.09 m/s [ 0.10 - 0.15 ] Sept E' Yasmany 0.05 m/s [ 0.08 - 0.15 ] E/E` 6.67 RV S' 0.08 m/s 2D/MM Value Range Doppler Value Range - FINDINGS: BP: Blood pressure: 122/60 mmHg. Left Ventricle: Grossly normal left ventricular systolic function based on limited views. Inadequate for detailed regional wall motion assessment. Ejection Fraction is estimated at 60 %. Diastolic indices overall most consistent with Grade I diastolic dysfunction (impaired myocardial relaxation without elevated filling pressures). Normal left ventricular cavity size. Mild concentric left ventricular hypertrophy. Right Ventricle: Mild right ventricular dysfunction. Normal right ventricular size. Left Atrium: The left atrium is normal in size. Right Atrium: The right atrium is normal in size. Atrial Septum: Normal appearing atrial septum. Cannot exclude PFO by atrial septal color Doppler interrogation. Mitral Valve: Mitral stenosis is absent. Trace mitral valve regurgitation. Moderate mitral annular calcification. Aortic Valve: Aortic valve not well visualized. There is aortic stenosis which is almost certainly severe. There is no aortic regurgitation. Tricuspid Valve: Normal appearance of the tricuspid leaflets. Trace tricuspid regurgitation. TR envelope inadequate to estimate RVSP. Pulmonic Valve: Pulmonic valve not well visualized. There is no pulmonic stenosis. Mild pulmonic regurgitation. Pericardium: No significant pericardial effusion. Aortic Root and Aorta: Normal caliber aortic root. Upper normal sized ascending aorta. Aortic Arch: The aortic arch is poorly visualized. IVC: Normal appearance of the inferior vena cava. CONCLUSIONS: 1. Grossly normal left ventricular systolic function based on limited views. Inadequate for detailed regional wall motion assessment. Ejection Fraction is estimated at 60 %. Diastolic indices overall most consistent with Grade I diastolic dysfunction (impaired myocardial relaxation without elevated filling pressures). Normal left ventricular cavity size. Mild concentric left ventricular hypertrophy. 2. Mild right ventricular dysfunction. Normal right ventricular size. 3. Aortic valve not well visualized. There is aortic stenosis which is almost certainly severe. There is no aortic regurgitation. Electronically Signed By: Kim garcia 09/18/2024 9:35:54 PM DRY CHAIN OPERATOR Procedure Note Kim Garcia MD - 09/18/2024 [facility] [address] [place] [id number] ECHOCARDIOGRAM Patient Name: ELSA DELGADO : 1945 (79y 6m) Gender: M Study Date: 09/17/2024 11:09:40 AM Ht(Inch): 74 Wt(Lb): 180.12 BSA: 2.07 Medart Operator: KEVON Zhu Provider: KIM GARCIA Heart Rate: 66 BMI: 23.12 BP: 122/60 Ref Provider: KIM GARCIA PROCEDURES: Echocardiographic Report: Transthoracic Echocardiogram with complete 2D,M-Mode, Spectral and Color Flow Doppler examination. 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 MEASUREMENTS: 2D/MM Value Range Doppler ValueRange IVSd 2D 1.15 cm [ 0.60 - 1.00 ] AV Peak Yasmany 3 m/s[ 1 - 2 ] LVIDd 2D 4.87 cm [ 4.20 - 5.80 ] AV Peak PG 45.4mmHg LVIDs 2D 2.72 cm [ 2.50 - 4.00 ] AV Mean PG 28mmHg LVPWd 2D 1.15 cm [ 0.60 - 1.00 ] AV VTI 77.2cm Estimated EF 60 % YAMILETH V max 0.7cm2 LA Dimen 2D 3.81 cm [ 3.00 - 4.00 ] YAMILETH VTI 0.7cm2 AoR Diam 2D 3.26 cm [ 3.10 - 3.70 ] LVOT Peak Yasmany 0.73m/s [ 0.70 - 1.10 ] AoR Diam 2D Index 1.57 LVOT Diam 2.0cm RA Volume 21.80 ml LVOT Peak PG 2mmHg TAPSE 1.24 cm [ 1.71 - 5.00 ] LVOT VTI 17.8cm MV Peak PG 6 mmHg MV Mean PG 2 mmHg MV E Peak Yasmany 0.6 m/s [ 0.6 - 1.3 ] MV A Peak Yasmany 0.8 m/s [ 1.0 - 1.2 ] MV PHT 87.0 ms [ 20.0 - 100.0 ] MV Decel Time 256.0 ms [ 104.0 - 258.0 ] MVA PHT 2.5 ms MV E/A Ratio 0.8 TR Peak Yasmany 1.7 m/s [ 1.0 - 2.8 ] TR Peak PG 24 mmHg RVSP 27.0 mmHg [ 10.0 - 36.0 ] RA Pressure 3.0 mmHg PV Peak Yasmany 1.1 m/s [ 0.4 - 0.8 ] PV Peak PG 5 mmHg Lat E` Yasmany 0.09 m/s [ 0.10 - 0.15 ] Sept E' Yasmany 0.05 m/s [ 0.08 - 0.15 ] E/E` 6.67 RV S' 0.08 m/s 2D/MM Value Range Doppler ValueRange - FINDINGS: BP: Blood pressure: 122/60 mmHg. Left Ventricle: Grossly normal left ventricular systolic function based onlimited views. Inadequate for detailed regional wall motion assessment. Ejection Fractionis estimated at 60 %. Diastolic indices overall most consistent with Grade I diastolicdysfunction (impaired myocardial relaxation without elevated filling pressures).Normal left ventricular cavity size. Mild concentric left ventricular hypertrophy. Right Ventricle: Mild right ventricular dysfunction. Normal rightventricular size. Left Atrium: The left atrium is normal in size. Right Atrium: The right atrium is normal in size. Atrial Septum: Normal appearing atrial septum. Cannot exclude PFO byatrial septal color Doppler interrogation. Mitral Valve: Mitral stenosis is absent. Trace mitral valve regurgitation.Moderate mitral annular calcification. Aortic Valve: Aortic valve not well visualized. There is aortic stenosiswhich is almost certainly severe. There is no aortic regurgitation. Tricuspid Valve: Normal appearance of the tricuspid leaflets. Tracetricuspid regurgitation. TR envelope inadequate to estimate RVSP. Pulmonic Valve: Pulmonic valve not well visualized. There is no pulmonicstenosis. Mild pulmonic regurgitation. Pericardium: No significant pericardial effusion. Aortic Root and Aorta: Normal caliber aortic root. Upper normal sizedascending aorta. Aortic Arch: The aortic arch is poorly visualized. IVC: Normal appearance of the inferior vena cava. CONCLUSIONS: 1. Grossly normal left ventricular systolic function based on limitedviews. Inadequate for detailed regional wall motion assessment. Ejection Fraction isestimated at 60 %. Diastolic indices overall most consistent with Grade I diastolicdysfunction (impaired myocardial relaxation without elevated filling pressures). Normal leftventricular cavity size. Mild concentric left ventricular hypertrophy. 2. Mild right ventricular dysfunction. Normal right ventricular size. 3. Aortic valve not well visualized. There is aortic stenosis which isalmost certainly severe. There is no aortic regurgitation. Electronically Signed By: Kim gracia 09/18/2024 9:35:54 PM DRY CHAIN OPERATOR Kim Garcia MD CV ECHO PROCEDURES Final R esult from Last 3 Months Insurance [employer] MEDICARE [facility] MEDICARE [facility] Address: [address] [address] [place] [address] Advance Directives For more information, please contact: [phone] Documents on File Type Date Recorded Patient Medical Billing And Coding Instructor Expl anation ADVANCE DIRECTIVE 08/15/2018 12:49 PM ADVANCE DIRECTIVE 08/15/2018 12:49 PM * Full Code (Latest Code Status on File) Date Activated Date Inactivated Comments 08/12/2018 10:04 AM 08/20/2018 4:46 PM Care Teams Qa Specialist Relationship Specialty Start Date End Date Kim Shah MD PCP - General 06/09/13 Kim Garcia MD Consulting Physician Cardiology 09/04/22
--- OUTSIDE RECORDS SUMMARY | 2024-10-09 08:41 | XMS_ITS | Referral Summary ---
Author Organization [facility] Building [address] Address [address] [place] [address] Care Team Providers Care Truckload Checker Name Role Phone Isidro Shah MD Primary Care Provider [phone] Isidro Anthony MD Unavailable [phone] Encounters Date Type Department Care Team Description 09/23/2024 Results Follow-Up [facility] Cardiology [address] [facility] [address] [place] [address] Isidro Anthony MD 09/17/2024 10:59 AM INTERIOR BLOCK WIRER - 09/17/2024 11:59 PM INTERIOR BLOCK WIRER Hospital Encounter [facility] OP Cardiac Testing [address] [facility] [address] [place] [address] Nonrheumatic aortic valve stenosis Discharge Disposition: Discharge to home or self care from Last 3 Months Allergies Active Allergy Reactions Criticality Noted Date [...] 09/09/2021 Assessment & Plan (09/09/2021 10:34 AM INTERIOR BLOCK WIRER): Aortic stenosis was mild when assessed in [...] 08/10/2017 Assessment & Plan (09/09/2021 10:33 AM INTERIOR BLOCK WIRER): Blood pressure is a little on the low side. Will decrease amlodipine from 10 mg daily to 5 mg daily and continue metoprolol 50 mg daily, Altace 10 mg daily, and terazosin 5 mg nightly. He is to monitor his blood pressure at home. Assessment & Plan (09/10/2020 4:10 PM INTERIOR BLOCK WIRER): Blood pressure is adequately controlled on current regimen. No change was made. Assessment & Plan (08/23/2019 10:51 AM INTERIOR BLOCK WIRER): Blood pressure is adequately controlled on current regimen. No change was made. Assessment & Plan (12/13/2018 9:38 AM CDT): Blood pressure is adequately controlled on current regimen. No change was made. Assessment & Plan (09/13/2018 9:34 AM INTERIOR BLOCK WIRER): Blood pressure is adequately controlled on current regimen. No change was made. Assessment & Plan (08/13/2018 6:16 PM INTERIOR BLOCK WIRER): Blood pressure is adequately controlled on current regimen. No change was made. Assessment & Plan (08/09/2018 3:38 PM INTERIOR BLOCK WIRER): Blood pressure is adequately controlled on current regimen. No change was made. Assessment & Plan (08/10/2017 6:35 PM INTERIOR BLOCK WIRER): Not ideally controlled. Increase metoprolol from 25 to 50 mg daily. He is to continue monitoring his heart rate and blood pressure and will let me know if they do not normalize. Dyslipidemia 08/10/2017 Assessment & Plan (09/09/2021 10:33 AM INTERIOR BLOCK WIRER): Point of care lipids today show an LDL of 42. Continue rosuvastatin 40 mg daily. Assessment & Plan (09/10/2020 4:10 PM INTERIOR BLOCK WIRER): On chronic lipid lowering therapy with good control. No changes made. Assessment & Plan (08/23/2019 10:52 AM INTERIOR BLOCK WIRER): On chronic lipid lowering therapy with good control. No changes made. Assessment & Plan (12/13/2018 9:41 AM CDT): On high-intensity statin therapy. Assessment & Plan (09/13/2018 9:34 AM INTERIOR BLOCK WIRER): Continue high-intensity statin therapy. Assessment & Plan (08/09/2018 3:39 PM INTERIOR BLOCK WIRER): Lipids are not controlled. Will increase rosuvastatin to 40 mg daily. Assessment & Plan (08/10/2017 6:36 PM INTERIOR BLOCK WIRER): On chronic lipid-lowering therapy. LDL today is 94. Continue atorvastatin 80 mg daily. Coronary artery disease of n ative artery of [place] heart with stable angina pectoris ([facility]) 06/18/2015 Overview (11/10/2016): Coronary arteriosclerosis in [place] artery Assessment & Plan (09/09/2021 10:34 AM INTERIOR BLOCK WIRER): Asymptomatic following coronary artery bypass grafting. Continue Plavix 75 mg daily and metoprolol 50 mg daily. His follow-up in one year will be with Dr. Anthony. Assessment & Plan (09/10/2020 4:10 PM INTERIOR BLOCK WIRER): Asymptomatic following extensive bypass surgery in 2019. Continue anti-platelet therapy. Assessment & Plan (08/23/2019 10:51 AM INTERIOR BLOCK WIRER): Asymptomatic following recent bypass surgery. Continue clopidogrel. Assessment & Plan (12/13/2018 9:38 AM CDT): No chest discomfort. Electrocardiogram is nonischemic. Continue clopidogrel. Assessment & Plan (09/13/2018 9:35 AM INTERIOR BLOCK WIRER): Recent coronary artery bypass grafting. He remains on clopidogrel. Needs to begin phase two cardiac rehab at [facility]. Also advised of the importance of good control of his diabetes to prevent progression of coronary artery disease. Assessment & Plan (08/13/2018 6:15 PM INTERIOR BLOCK WIRER): Severe three-vessel coronary artery disease, not amenable to coronary intervention. Holding Plavix and monitoring platelet function to determine optimal timing of surgery. Continue heparin and aspirin Assessment & Plan (08/10/2017 6:34 PM INTERIOR BLOCK WIRER): No symptoms of myocardial ischemia. Continue anti-platelet therapy. Resolved Problems Problem Noted Date Diagnosed Date Resolved Date Angina pectoris, unstable 08/09/2018 Overview (08/09/2018): Added automatically from request for surgery [id number] Assessment & Plan (08/09/2018 3:37 PM INTERIOR BLOCK WIRER): New onset exertional angina two months ago, [...] chest discomfort unrelieved by rest or nitroglycerin. Social History Tobacco Use Types Packs/Day Years [...] on file Legal Sex Male 9:24 PM INTERIOR BLOCK WIRER Gender Identity Not on file Sexual Orientation Not on file Last Filed Vital Signs Vital Sign Reading Time Taken Comments Blood Pressure 122/60 10/04/2023 12:28 PM INTERIOR BLOCK WIRER Pulse 92 10/04/2023 12:28 PM INTERIOR BLOCK WIRER Temperature 36.5 C (97.7 F) 09/03/2019 5:30 PM INTERIOR BLOCK WIRER Respiratory Rate 16 09/03/2019 7:05 PM INTERIOR BLOCK WIRER Oxygen Saturation 99% 10/04/2023 12:28 PM INTERIOR BLOCK WIRER Inhaled Oxygen Concentration - - Weight 81.6 kg (180 lb) 10/04/2023 12:28 PM INTERIOR BLOCK WIRER Height 188 cm (6' 2.02 ) 10/04/2023 12:28 PM INTERIOR BLOCK WIRER Body Mass Index 23.1 10/04/2023 12:28 PM INTERIOR BLOCK WIRER Plan of Treatment Not on file Procedures Procedure Name Priority Date/Time Associated Diagnosis Comments TRANSTHORACIC ECHO (TTE) COMPLETE W DOPPLER/CF WO CONTRAST Routine 09/17/2024 11:46 AM INTERIOR BLOCK WIRER Nonrheumatic aortic valve stenosis from Last 3 Months Results * TRANSTHORACIC ECHO (TTE) COMPLETE W DOPPLER/CF WO CONTRAST (09/17/2024 11:46 AM INTERIOR BLOCK WIRER) LV EF 60 % CONS SCIMAGE Anatomical Region Laterality Modality Ultrasound 09/17/2024 11:0 9 AM INTERIOR BLOCK WIRER Narrative 09/18/2024 9:[address] [facility] [address] [place] [address] ECHOCARDIOGRAM Patient Name: BHANU DLEGADO : 1945 (79y 6m) Gender: M Study Date: 09/17/2024 11:09:40 AM Ht(Inch): 74 Wt(Lb): 180.12 BSA: 2.07 Director Electrical Engineering: KEVON Order Provider: ISIDRO ANTHONY Heart Rate: 66 BMI: 23.12 BP: 122/60 Ref Provider: ISIDRO ANTHONY PROCEDURES: Echocardiographic Report: Transthoracic Echocardiogram with complete [...] [ 3.10 - 3.70 ] LVOT Peak Yasamny 0.73 m/s [ 0.70 - 1.10 ] [...] is no aortic regurgitation. Electronically Signed By: Isidro garcia 09/18/2024 9:35:54 PM INTERIOR BLOCK WIRER Procedure Note Isidro Anthony MD - 09/18/2024 [facility] Testing [facility] [address] [place] [id number] ECHOCARDIOGRAM Patient Name: BHANU DELGADO : 1945 (79y 6m) Gender: M Study Date: 09/17/2024 11:09:40 AM Ht(Inch): 74 Wt(Lb): 180.12 BSA: 2.07 Director Electrical Engineering: KEVON Order Provider: ISIDRO ANTHONY Heart Rate: 66 BMI: 23.12 BP: 122/60 Ref Provider: ISIDRO ANTHONY PROCEDURES: Echocardiographic Report: Transthoracic Echocardiogram with complete [...] is no aortic regurgitation. Electronically Signed By: Isidro garcia 09/18/2024 9:35:54 PM INTERIOR BLOCK WIRER Isidro Anthony MD CV ECHO PROCEDURES Final R esult from Last 3 Months Insurance MEDICARE [facility] Address: [facility] [address] [place] [address] MEDICARE [facility] MEDICARE [facility] [place] [address] MEDICARE [facility] Address: [address] [address] [place] [address] Advance Directives For more information, please contact: [phone] Documents on File Type Date Recorded Patient Flotation Tender Helper Expl anation ADVANCE DIRECTIVE 08/15/2018 12:49 PM ADVANCE DIRECTIVE 08/15/2018 12:49 PM * Full Code (Latest Code Status on File) Date Activated Date Inactivated Comments 08/12/2018 10:04 AM 08/20/2018 4:46 PM Care Teams Truckload Checker Relationship Specialty Start Date End Date Isidro Shah MD PCP - General 06/09/13 Isidro Anthony MD Consulting Physician Cardiology 09/04/22
[2024-10-09 13:08] LABS: Creatinine Urine 52.1 mg/dL
[2024-10-09 13:12] LABS: MALB Creatinine Ratio 40.5 mg/g (0-30); Microalbumin Urine Random 21.1 mg/L (0-16.7)
[2024-10-09 13:53] LABS: Alanine Aminotransferase 40 U/L (6-50); Albumin Level 4.3 g/dL (3.5-5.1); Alkaline Phosphatase 87 U/L (38-126); Anion Gap 12 mmol/L (4-12); Aspartate Amino Transferase 65 U/L (17-59); Bilirubin,Total 0.5 mg/dL (0.2-1.3); Blood Urea Nitrogen 18 mg/dL (9-20); Calcium 9.6 mg/dL (8.4-10.2); Carbon Dioxide 25 mmol/L (22-30); Chloride 99 mmol/L (98-107); Estimated Glomerular Filt Rate > 60; Glucose 264 mg/dL (65-110); Potassium 4.6 mmol/L (3.4-5.0); Sodium 136 mmol/L (137-145)
[2024-10-09 15:28] LABS: Hemoglobin A1C 10.6 % (<5.7)
== END 2024-10-09 08:27 | disposition home or self-care (01) ==
PROVIDERS: PCP Family Medicine; Visit Provider Nurse Practitioner Family
DX: E11.21 Type 2 diabetes mellitus with diabetic nephropathy (principal); I10 Essential (primary) hypertension
CPT/HCPCS: 36415; 80053; 82043; 83036

== ENCOUNTER 2025-02-13 09:21 | Outpatient (CLI) | payer MEDICARE, SELFPAY ==
--- OUTSIDE RECORDS SUMMARY | 2025-02-13 09:27 | XMS_ITS | Clinical Summary ---
[facility] Address [address] [place] [address] Care Team Providers Care Marine Services Technician Name Role Phone Isidro Shah MD Primary Care Provider [phone] Allergies Active Allergy Reactions Criticality Noted Date [...] mouth. Active fluticasone propionate (FLONASE) 50 mcg/spray [place], Suspension nasal inhaler Administer 1 [place] in each nostril. 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 Gender Identity Not on file Sexual Orientation [...] 10:23 AM CDT Height 188 cm (6' 2) 04/11/2022 11:41 AM CDT Body Mass Index 22.34 04/11/2022 11:41 AM CDT Plan of Treatment Upcoming Encounters Date Type Department Care Team (Late st Contact Info) Description 04/21/2025 10:00 AM CDT Office Visit [facility] Oncology and Hematology - [place] [address] [facility] [address] [place] [address] Clemente Childs MD [address] [facility] [address] [place] [address] Health Maintenance Due Date Last Done Comments DTAP/TDAP/TD VACCINES (1 - Tdap) 1964 PNEUMOCOCCAL VACCINE 50+ YEARS (1 of 2 - PCV) 02/22/19 66 ZOSTER VACCINE (1 of 2) 02/23/1996 RSV VACCINE (60+ or ) (1 - 1-dose 75+ series) 2021 INFLUENZA VACCINE (#1) 2025 05/28/2020 COLORECTAL SCREENING Discontinued 09/11/2019 Colorectal Cancer Screening Discontinued FIT-DNA Q 3 years Discontinued FIT/FOBT Q 1 year Discontinued Flex Sig/CT Colonography Q 5 [place] [address] [facility] [id number] Care Teams Marine Services Technician Relationship Specialty Start Date End Date Isidro Shah MD PCP - General Family Practice 07/24/19
--- OUTSIDE RECORDS SUMMARY | 2025-02-13 09:28 | XMS_ITS | Clinical Summary ---
Author Organization [facility] D Address [address] [place] [address] Care Team Providers Care Ironworker Foreman Name Role Phone Kim Shah MD Primary Care Provider [phone] Kim Garcia MD Unavailable [phone] iKm Garcia MD Unavailable Pancho Rodriguez MD Unavailable Allergies Active Allergy Reactions Criticality Noted Date [...] (10 mg total) by mouth daily Active metoprolol (LOPRESSOR) 50 mg tablet Take 1 tablet (50 mg total) by mouth daily Active Jardiance 25 mg tablet Take 1 tablet (25 mg total) by mouth daily 1 Active ALPRAZolam (XANAX) 0.25 mg tablet Take by mouth 3 (three) times a day as needed 4 Active FLUoxetine (PROzac) 20 mg capsule Take 1 capsule (20 mg total) by mouth daily 5 Active aspirin 81 mg enteric coated tablet Take 1 tablet (81 mg total) by mouth daily 90 tablet 5 Active amLODIPine (NORVASC) 5 mg tablet TAKE 1 TABLET(5 MG) BY MOUTH DAILY 90 tablet 3 5 Active Active Problems Problem Noted Date Diagnosed Date Aortic stenosis, severe 01/09/2025 S/P TAVR (transcatheter aortic valve replacement ) 01/09/2025 Encounter for examination fo r normal comparison and control in clinical research program 12/24/2024 Nonrheumatic aortic valve stenosis 09/09/2021 Assessment & Plan (09/09/2021 10:34 AM POKER DEALER): Aortic stenosis was mild when assessed in [...] 08/10/2017 Assessment & Plan (09/09/2021 10:33 AM POKER DEALER): Blood pressure is a little on the low side. Will decrease amlodipine from 10 mg daily to 5 mg daily and continue metoprolol 50 mg daily, Altace 10 mg daily, and terazosin 5 mg nightly. He is to monitor his blood pressure at home. Assessment & Plan (09/10/2020 4:10 PM POKER DEALER): Blood pressure is adequately controlled on current regimen. No change was made. Assessment & Plan (08/23/2019 10:51 AM POKER DEALER): Blood pressure is adequately controlled on current regimen. No change was made. Assessment & Plan (12/13/2018 9:38 AM CDT): Blood pressure is adequately controlled on current regimen. No change was made. Assessment & Plan (09/13/2018 9:34 AM POKER DEALER): Blood pressure is adequately controlled on current regimen. No change was made. Assessment & Plan (08/13/2018 6:16 PM POKER DEALER): Blood pressure is adequately controlled on current regimen. No change was made. Assessment & Plan (08/09/2018 3:38 PM POKER DEALER): Blood pressure is adequately controlled on current regimen. No change was made. Assessment & Plan (08/10/2017 6:35 PM POKER DEALER): Not ideally controlled. Increase metoprolol from 25 to 50 mg daily. He is to continue monitoring his heart rate and blood pressure and will let me know if they do not normalize. Dyslipidemia 08/10/2017 Assessment & Plan (09/09/2021 10:33 AM POKER DEALER): Point of care lipids today show an LDL of 42. Continue rosuvastatin 40 mg daily. Assessment & Plan (09/10/2020 4:10 PM POKER DEALER): On chronic lipid lowering therapy with good control. No changes made. Assessment & Plan (08/23/2019 10:52 AM POKER DEALER): On chronic lipid lowering therapy with good control. No changes made. Assessment & Plan (12/13/2018 9:41 AM CDT): On high-intensity statin therapy. Assessment & Plan (09/13/2018 9:34 AM POKER DEALER): Continue high-intensity statin therapy. Assessment & Plan (08/09/2018 3:39 PM POKER DEALER): Lipids are not controlled. Will increase rosuvastatin to 40 mg daily. Assessment & Plan (08/10/2017 6:36 PM POKER DEALER): On chronic lipid-lowering therapy. LDL today is 94. Continue atorvastatin 80 mg daily. 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 Continue Plavix 75 mg daily and metoprolol 50 mg daily. His follow-up in one year will be with Dr. Garcia. Assessment & Plan (09/10/2020 4:10 PM POKER DEALER): Asymptomatic following extensive bypass surgery in 2019. Continue anti-platelet therapy. Assessment & Plan (08/23/2019 10:51 AM POKER DEALER): Asymptomatic following recent bypass surgery. Continue clopidogrel. Assessment & Plan (12/13/2018 9:38 AM CDT): No chest discomfort. Electrocardiogram is nonischemic. Continue clopidogrel. Assessment & Plan (09/13/2018 9:35 AM POKER DEALER): Recent coronary artery bypass grafting. He remains on clopidogrel. Needs to begin phase two cardiac rehab at [place]. Also advised of the importance of good control of his diabetes to prevent progression of coronary artery disease. Assessment & Plan (08/13/2018 6:15 PM POKER DEALER): Severe three-vessel coronary artery disease, not amenable to coronary intervention. Holding Plavix and monitoring platelet function to determine optimal timing of surgery. Continue heparin and aspirin Assessment & Plan (08/10/2017 6:34 PM POKER DEALER): No symptoms of myocardial ischemia. Continue anti-platelet therapy. Resolved Problems Problem Noted Date Diagnosed Date Resolved Date Angina pectoris, unstable 08/09/2018 Overview (08/09/2018): Added automatically from request for surgery [id number] Assessment & Plan (08/09/2018 3:37 PM POKER DEALER): New onset exertional angina two months ago, [...] Encounters Date Type Department Care Team Description 01/14/2025 Telephone [facility] Cardiology [address] [place] [address] Pancho Rodriguez MD 01/13/2025 Telephone Cardiovascular and Thoracic Surgery [address] [place] [address] Regine Simmons, SHARIFA 01/12/2025 Telephone [facility] [address] [place] [address] Lilly Thorpe EP-C Cardiac Rehab Navigator Education Call 01/09/2025 7:45 AM CDT - 01/09/2025 9:50 AM CDT Surgery [facility] Operating Room [facility] [place] [place] [phone] Andrzej Valentin MD REPLACEMENT AORTIC VALVE - TRANSFEMORAL ENDOVASCULAR APPROACH 01/09/2025 7:35 AM CDT Anesthesia Event [facility] Operating Room [address] [place] [phone] Eladio Lee MD Peterson, Nathan Scott, CRNA 01/09/2025 6:01 AM CDT - 01/10/2025 1:48 PM CDT Hospital Encounter [address] [phone] Andrzej Valentin MD Theodos, Gus, MD Nonrheumatic aortic valve stenosis; Encounter for examination for normal comparison and control in clinical research program Discharge Disposition: Discharge to home or self care 01/08/2025 Orders Only Cardiovascular and Thoracic Surgery [address] [place] [address] [address] [place] [address] Aline Serrano NP Lung nodules (Primary Dx) 01/08/2025 Telephone Cardiovascular and Thoracic Surgery [address] [place] [address] [address] [place] [address] Aline Serrano NP 01/02/2025 7:33 AM CDT - 01/02/2025 11:59 PM CDT Hospital Encounter [facility] - Imaging [address] [place] [phone] Lung nodule seen on imaging study Discharge Disposition: Discharge to home or self care 12/25/2024 Results Follow-Up Cardiovascular and Thoracic Surgery [address] [place] [address] [address] [place] [address] TAVR 12/24/2024 Documentation Cardiovascular and Thoracic Surgery [address] [place] [address] [address], [place] [address] Beverley Pires 12/23/2024 Telephone Cardiovascular and Thoracic Surgery [address] [place] [address] [address], [place] [address] Regine Simmons RN 12/18/2024 12:00 PM CDT - 12/18/2024 1:15 PM CDT Surgery [facility] Heart [address] [address] Pancho Rodriguez MD RIGHT LEFT HEART CATHETERIZATION WITH CORONARY ANGIOGRAPHY GRAFT AND WITH OR WITHOUT LEFT VENTRICULOGRAPHY [id number] 12/18/2024 10:50 AM CDT - 12/18/2024 4:54 PM CDT Hospital Encounter [facility] Heart [address] [address] Pancho Rodriguez MD Nonrheumatic aortic valve stenosis Discharge Disposition: Discharge to home or self care 12/08/2024 Telephone [facility] Cardiology [address] [place] [address] [address] [place] [address] Andrzej Valentin MD [facility] Scheduling 12/03/2024 11:25 AM CDT Lab [facility] Outpatient Lab [address] [place] [phone] Nonrheumatic aortic valve stenosis 12/03/2024 11:10 AM CDT Lab [facility] Outpatient Lab [address] [place] [phone] Preop testing; Aortic valve stenosis, etiology of cardiac valve disease unspecified; Nonrheumatic aortic valve stenosis 12/03/2024 10:00 AM CDT Office Visit Cardiovascular and Thoracic Surgery [address] [place] [address] [address], [place] [address] Andrzej Valentin MD Preop testing (Primary Dx); Aortic valve stenosis, etiology of cardiac valve disease unspecified 12/03/2024 9:25 AM CDT - 12/03/2024 11:59 PM CDT Hospital Encounter [facility] Cardiac Testing [address] [place] [address] Nonrheumatic aortic valve stenosis Discharge Disposition: Discharge to home or self care 12/03/2024 8:35 AM CDT - 12/03/2024 11:59 PM CDT Hospital Encounter [facility] - Imaging [address] [place] [address] Nonrheumatic aortic valve stenosis Discharge Disposition: Discharge to home or self care 12/03/2024 Telephone [facility] Cardiology [address] [place] [address] [address] [place] [address] Diana Leonardo 11/24/2024 Results Follow-Up [facility] Cardiology [address] [place] [address] [address] [place] [address] Kim Garcia MD Stress Echo Exercise WO Doppler/CF 11/21/2024 11:08 AM CDT - 11/21/2024 11:59 PM CDT Hospital Encounter [facility] OP Cardiac Testing [address] [place] [address] Nonrheumatic aortic valve stenosis Discharge Disposition: Discharge to home or self care 11/14/2024 Documentation Cardiovascular and Thoracic Surgery [address] [place] [address] [address] [place] [address] Rebecca Hogue 11/14/2024 Orders Only Cardiovascular and Thoracic Surgery [address] [place] [address] [address], [place] [address] Regine Simmons RN Nonrheumatic aortic valve stenosis (Primary Dx) from Last 3 Months Surgical History Surgery Date Site/Laterality Comments CORONARY STENT PLACEMENT Coronary Stent Placement UMBILICAL HERNIA REPAIR 08/06/2013 - 08/05/2014 Hernia repair, umbilical CARDIAC CATHETERIZATION CORONARY ARTERY BYPASS GRAFT 08-14-2018 x 5 VASECTOMY 1984 CARDIAC CATHETERIZATION 12/18/2024 N/A Procedure: RIGHT LEFT HEART CATHETERIZATION WITH CORONARY ANGIOGRAPHY GRAFT AND WITH OR WITHOUT LEFT VENTRICULOGRAPHY [id number]; Surgeon: Pancho Rodriguez MD; Location: [facility] CARDIAC MOTOR OPERATOR; Service: Cardiovascular; Laterality: N/A; Medical devices from this surgery are in the Medical Devices section. TRANSCATHETER AORTIC VALVE REPLACEMENT 01/09/2025 REPLACEMENT AORTIC VALVE - TRANSFEMORAL ENDOVASCULAR APPROACH 01/09/2025 Chest/N/A Procedure: REPLACEMENT AORTIC VALVE - TRANSFEMORAL ENDOVASCULAR APPROACH; Surgeon: Andrzej Valentin MD; Location: [facility] OPERATING ROOM; Service: Cardiothoracic; Laterality: N/A; 205 mGy 32.41 5.6 min Medical devices from this surgery are in the Medical Devices section. CARDIAC CATHETERIZATION 01/09/2025 Chest/N/A Procedure: TAVR - PERCUTANEOUS FEMORAL 11985; Surgeon: Pancho Rodriguez MD; Location: [facility] OPERATING ROOM; Service: Cardiovascular; Laterality: N/A; Medical devices from this surgery are in the Medical Devices section. Medical History Medical History Date Comments Coronary artery disease Diabetes mellitus (HCC) 2004 Hypertension Cerebrovascular accident (CVA) (HCC) 1997 Stroke SHIN (iron deficiency anemia) Aortic stenosis Family History Medical History Relation Name Comments Coronary artery disease Father Marah nary Artery Bypass Graft; Heart disease Father Hypertension Father Stroke Father Heart disease Mother Hypertension Mother Heart disease Sister Relation Name Status Comments Father Alive Mother Sister Social History Tobacco Use Types Packs/Day Years Used Date Smoking Tobacco: Never Smokeless Tobacco: Never Alcohol Use Standard Drinks/Week Comments Never 0 (1 standard drink = 0.6 oz pur e alcohol) rare AUDIT-C Answer Date Recorded Q1: How often do you have a drink containing alcohol? Never 01/09/2025 Q2: How many drinks containi ng alcohol do you have on a typical day when you are drinking? Patient does not drink Q3: How often do you have si x or more drinks on one occasion? Never 01/09/2025 Personal Safety Answer Date Recorded Have you ever been in or are you currently in a harmful physical or emotional relationship or is someone making you feel afraid or unsafe? Denies 01/09/2025 Sex and Gender Information Value Date Recorded Sex Assigned at Not on file Legal Sex Male 9:24 PM POKER DEALER Gender Identity Not on file Sexual Orientation Not on file Obstetrics History Last Filed Vital Signs Vital Sign Reading Time Taken Comments Blood Pressure 136/79 01/10/2025 12:39 PM CDT Pulse 86 01/10/2025 12:39 PM CDT Temperature 37.4 C (99.4 F) 01/10/2025 12:39 PM CDT Respiratory Rate 20 01/10/2025 12:3 9 PM CDT Oxygen Saturation 97% 01/10/2025 12: 39 PM CDT Inhaled Oxygen Concentration - - Weight 77.9 kg (171 lb 11.8 oz) 01/09/2025 6:25 AM CDT Height 188 cm (6' 2) 01/09/2025 6:25 AM CDT Body Mass Index 22.05 01/09/2025 6:25 AM CDT Plan of Treatment Health Maintenance Due Date Last Done Comments Albumin Creatinine Ratio, Urine 1945 Depression Screening 1945 Hepatitis C Screening 1945 Dilated Eye Exam 1945 Foot Exam 1945 DTaP/Tdap/Td Vaccine (1 - Tdap) 1957 Hepatitis B Screening 02/23/1964 Pneumococcal vaccine 65+ (1 of 2 - PCV) 1965 Well Visit 65+ 2011 Hemoglobin A1C 05/30/2019 11/28/2018, 08/13/2018 Covid-19 Vaccine (4 - 2023-2 5 season) 2024 07/12/2021, 10/29/2020, 10/04/2020 Influenza Vaccine (#1) 2025 05/24/2021, 2017 Lipid Panel 10/22/2025 10/22/2024, 02/2 04/2024, 09/14/2022, Additional history exists Fall Risk Assessment 01/10/2026 01/10/2025 eGFR 01/10/2026 01/10/2025, 06/0 01/2025, 12/03/2024, Additional history exists Zoster Vaccine Completed 05/31/2021, 03/29/2021 Medical Devices Implanted Type Area Muffler Installer Device Identifier Shelf Expiration Date Model / Serial / Lot Connell [employer] Valve Heart 26mm Heather 3 Transcatheter [id number] - [id number] - [id number] Implanted:Qty: 1 on 01/09/2025 by Andrzej Valentin MD at [facility] Prosthetic Valve Right: Aortic Valve [employer] 07/08/2027 [id number] / [id number] / [employer] Device Vascular Closure Femoral Artery Bioabsorbable Dual Method Vascade 6-7fr Collagen [id number] - S0 - [id number] Implanted:Qty: 1 on 12/18/2024 by Pancho Rodriguez MD at [facility] Vascular Closure Device [employer] 10/28/2026 [id number] / 0 / [id number] [employer] Device Vascular Closure Celt Acd 5fr Sterile Kclt-05 - S0 - [id number] Implanted:Qty: 1 on 12/18/2024 by Pancho Rodriguez MD at [facility] Vascular Closure Device [employer] 04/30/2027 KCLT-05 / 0 / [id number] [employer] 18f Manta Vascular Closure Device 2114 [id number] Implanted:Qty: 1 on 01/09/2025 by Andrzej Valentin MD at [facility] Vascular Closure Device Right: Common Femoral Artery [employer] 07/10/2025 [id number] / / [id number] [employer] Device Vascular Closure Celt Acd 5fr Sterile Kclt-05 - [id number] Implanted:Qty: 1 on 01/09/2025 by Andrzej Valentin MD at [facility] Vascular Closure Device Right: Aortic Valve [employer] 04/30/2027 KCLT-05 / / [id number] Procedures Procedure Name Priority Date/Time Associated Diagnosis Comments TRANSTHORACIC ECHO (TTE) COMPLETE W DOPPLER/CF W CONTRAST Routine 01/10/2025 7:59 AM CDT EGFR Routine 01/10/2025 3:07 AM CDT DIFFERENTIAL AUTO Routine 01/10/2025 3:0 7 AM CDT CBC WITH AUTO DIFFERENTIAL Routine 01/10/2025 3:07 AM CDT BASIC METABOLIC PANEL Routine 01/10/2025 3:07 AM CDT ECG 12-LEAD Routine 01/09/2025 1:19 PM CDT POCT GLUCOSE DEVICE Routine 01/09/2025 9 :21 AM CDT TRANSTHORACIC ECHO (TTE) LIMITED/FOLLOW UP W LTD DOPPLER/CF W CONTRAST Routine 01/09/2025 9:13 AM CDT CV HYBRID ROOM (DEFAULT ORDERABLE) Routine 01/09/2025 8:55 AM CDT Nonrheumatic aortic valve stenosis Encounter for examination for normal comparison and control in clinical research program TRANSCATHETER AORTIC VALVE REPLACEMENT (TAVR) OPEN FEMORAL ART APPROACH Routine 01/09/2025 8:55 AM CDT Nonrheumatic aortic valve stenosis Encounter for examination for normal comparison and control in clinical research program ID AN PROCEDURE PLACEHOLDER Routine 01/09/2025 8:44 AM CDT ID AN PROCEDURE PLACEHOLDER Routine 01/09/2025 8:44 AM CDT POCT ACTIVATED CLOTTING TIME, HIGH RANGE Routine 01/09/2025 8:23 AM CDT POC BLOOD GAS AND CHEMISTRIES, ARTERIAL Routine 01/09/2025 8:14 AM CDT POCT ACTIVATED CLOTTING TIME, HIGH RANGE Routine 01/09/2025 8:14 AM CDT EGFR Routine 01/09/2025 6:35 AM CDT DIFFERENTIAL AUTO Routine 01/09/2025 6:3 5 AM CDT TYPE AND SCREEN Routine 01/09/2025 6:35 AM CDT BASIC METABOLIC PANEL Routine 01/09/2025 6:35 AM CDT CBC WITH AUTO DIFFERENTIAL Routine 01/09/2025 6:35 AM CDT PRO B-TYPE NATRIURETIC PEPTIDE Routine 01/09/2025 6:35 AM CDT PREPARE RBC STAT 01/09/2025 6:[address] CHEST WO CONTRAST Schedule Routine, Read Routine (OP Routine) 01/02/2025 7:58 AM CDT Lung nodule seen on imaging study RIGHT LEFT HEART CATHETERIZATION CORONARY GRAFT WITH WITHOUT LEFT VENTRICULOGRAPHY ANGIOGRAM Routine 12/18/2024 1:10 PM CDT Nonrheumatic aortic valve stenosis POCT GLUCOSE DEVICE Routine 12/18/2024 12:14 PM CDT EGFR Routine 12/03/2024 11:20 AM CDT Preop testing Aortic valve stenosis, etiology of cardiac valve disease unspecified DIFFERENTIAL AUTO Routine 12/03/2024 11:20 AM CDT Preop testing Aortic valve stenosis, etiology of cardiac valve disease unspecified PRO B-TYPE NATRIURETIC PEPTIDE Routine 12/03/2024 11:20 AM CDT Nonrheumatic aortic valve stenosis BASIC METABOLIC PANEL Routine 12/03/2024 11:20 AM CDT Preop testing Aortic valve stenosis, etiology of cardiac valve disease unspecified CBC WITH AUTO DIFFERENTIAL Routine 12/03/2024 11:20 AM CDT Preop testing Aortic valve stenosis, etiology of cardiac valve disease unspecified TYPE AND SCREEN Routine 12/03/2024 11:20 AM CDT Preop testing Aortic valve stenosis, etiology of cardiac valve disease unspecified ECG 12-LEAD Routine 12/03/2024 9:36 AM CDT Nonrheumatic aortic valve stenosis CT TAVR Schedule Routine, Read Routine (OP Routine) 12/03/2024 9:11 AM CDT Nonrheumatic aortic valve stenosis STRESS ECHO EXERCISE WO DOPPLER/CF W CONTRAST Routine 11/21/2024 12:07 PM CDT Nonrheumatic aortic valve stenosis POCT LIPID PANEL Routine 10/22/2024 1:06 PM CDT Essential hypertension HEMOGLOBIN A1C Routine 11/28/2018 10:07 AM CDT from Last 3 Months or Most Recently Relevant to Health Maintenance Results * TRANSTHORACIC ECHO (TTE) COMPLETE W DOPPLER/CF W CONTRAST (01/10/2025 7:59 AM CDT) Estimated EF 65 % CONS SCIMAGE Anatomical Region Laterality Modality Ultrasound 01/10/2025 6:47 AM CDT Narrative 01/10/2025 10:28 AM CDT [place] [id number] [place] [address] ECHOCARDIOGRAM Patient Name: ELSA ENGEL : 1945 (79y 10m) Gender: M Study Date: 01/10/2025 06:47:45 AM Ht(Inch): 74 Wt(Lb): 171.08 BSA: 2.01 Manager Estate: SAGAR Location: [id number] Order Provider: PANCHO RODRIGUEZ BMI: 21.96 BP: 148/92 Ref Provider: PANCHO RODRIGUEZ - PROCEDURES: Echocardiographic Report: Transthoracic Echocardiogram with 2D, M-Mode, Spectral and Color Flow Doppler examination and administration of intravenous contrast. INDICATIONS: POST TAVR. MEASUREMENTS: 2D/MM Value Range Doppler Value Range IVSd 2D 0.79 cm [ 0.60 - 1.00 ] AV Peak Yasmany 1.98 m/s [ 1.00 - 1.70 ] LVIDd 2D 4.78 cm [ 4.20 - 5.80 ] AV Peak PG 15.7 mmHg LVIDs 2D 2.88 cm [ 2.50 - 4.00 ] AV Mean PG 9.0 mmHg LVPWd 2D 0.66 cm [ 0.60 - 1.00 ] AV VTI 31.8 cm Estimated EF 65 % YAMILETH VTI 1.8 cm2 LA Dimension 2D 4.07 cm [ 3.00 - 4.00 ] LVOT Peak Yasmany 0.88 m/s [ 0.70 - 1.10 ] AoR Diam 2D 3.41 cm [ 3.10 - 3.70 ] LVOT Diam 2.4 cm AoR Diam 2D Index 1.70 LVOT Peak PG 3.1 mmHg RA Volume 32.00 ml LVOT VTI 13.2 cm TAPSE 1.82 cm [ 1.71 - 5.00 ] MV Peak PG 6.3 mmHg MV Mean PG 2.2 mmHg MV E Peak Yasmany 0.5 m/s [ 0.6 - 1.3 ] MV A Peak Yasmany 1.3 m/s [ 1.0 - 1.2 ] MV PHT 79.7 ms [ 20.0 - 100.0 ] MV Decel Time 355.9 ms [ 104.0 - 258.0 ] MVA PHT 2.8 ms MV E/A Ratio 0.4 PV Peak Yasmany 1.0 m/s [ 0.4 - 0.8 ] PV Peak PG 3.9 mmHg Lat E` Yasmany 0.16 m/s [ 0.10 - 0.15 ] Sept E' Yasmany 0.05 m/s [ 0.08 - 0.15 ] E/E` 3.12 RV S' 0.10 m/s 2D/MM Value Range Doppler Value Range - FINDINGS: BP: Blood pressure: 148/92 mmHg. Left Ventricle: Normal global and regional left ventricular systolic function. Ejection Fraction is estimated at 65 %. Diastolic indices overall most consistent with Grade I diastolic dysfunction (impaired myocardial relaxation without elevated filling pressures). Normal left ventricular cavity size. LV wall thickness is within normal limits. A sigmoid septum is present. There is an interventricular septal bounce noted. Right Ventricle: Normal right ventricular systolic function. Normal right ventricular size. Left Atrium: The left atrium is normal in size. Right Atrium: The right atrium is normal in size. Atrial Septum: Normal appearing atrial septum. Cannot exclude PFO by atrial septal color Doppler interrogation. Mitral Valve: Mitral stenosis is absent. There is no mitral regurgitation. Moderate mitral annular calcification. Aortic Valve: Aortic valve not well visualized. There is no aortic stenosis demonstrated. There is no aortic regurgitation. Normal functioning bioprosthetic aortic valve. Tricuspid Valve: Normal appearance of the tricuspid leaflets. Trace tricuspid regurgitation. TR envelope inadequate to estimate RVSP. Pulmonic Valve: Grossly normal appearing pulmonic valve. There is no pulmonic stenosis. Trace pulmonic regurgitation. Pericardium: There is probably a pericardial effusion present although, if so, it is poorly demonstrated and it would seemingly be small at most. Aortic Root and Aorta: Normal caliber aortic root. Upper normal sized ascending aorta. Aortic Arch: The aortic arch is poorly visualized. IVC: Normal appearance of the inferior vena cava. CONCLUSIONS: 1. Normal global and regional left ventricular systolic function. Ejection Fraction is estimated at 65 %. Diastolic indices overall most consistent with Grade I diastolic dysfunction (impaired myocardial relaxation without elevated filling pressures). Normal left ventricular cavity size. LV wall thickness is within normal limits. A sigmoid septum is present. There is an interventricular septal bounce noted. 2. Normal right ventricular systolic function. Normal right ventricular size. 3. Aortic valve not well visualized. There is no aortic stenosis demonstrated. There is no aortic regurgitation. Normal functioning bioprosthetic aortic valve. 4. There is probably a pericardial effusion present although, if so, it is poorly demonstrated and it would seemingly be small at most. Electronically Signed By: Kim garcia 01/10/2025 10:27:24 AM CDT Procedure Note Kim Garcia MD - 01/10/2025 [facility] [address] [place] [address] ECHOCARDIOGRAM Patient Name: ELAS ENGEL : 1945 (79y 10m) Gender: M Study Date: 01/10/2025 06:47:45 AM Ht(Inch): 74 Wt(Lb): 171.08 BSA: 2.01 Manager Estate: [employer] Location: [address] Order Provider: PANCHO RODRIGUEZ BMI: 21.96 BP: 148/92 Ref Provider: PANCHO RODRIGUEZ - PROCEDURES: Echocardiographic Report: Transthoracic Echocardiogram with 2D, M-Mode,Spectral and Color Flow Doppler examination and administration of intravenouscontrast. INDICATIONS: POST TAVR. MEASUREMENTS: 2D/MM Value Range Doppler ValueRange IVSd 2D 0.79 cm [ 0.60 - 1.00 ] AV Peak Yasmany 1.98m/s [ 1.00 - 1.70 ] LVIDd 2D 4.78 cm [ 4.20 - 5.80 ] AV Peak PG 15.7mmHg LVIDs 2D 2.88 cm [ 2.50 - 4.00 ] AV Mean PG 9.0mmHg LVPWd 2D 0.66 cm [ 0.60 - 1.00 ] AV VTI 31.8cm Estimated EF 65 % YAMILETH VTI 1.8cm2 LA Dimension 2D 4.07 cm [ 3.00 - 4.00 ] LVOT Peak Yasmany 0.88m/s [ 0.70 - 1.10 ] AoR Diam 2D 3.41 cm [ 3.10 - 3.70 ] LVOT Diam 2.4cm AoR Diam 2D Index 1.70 LVOT Peak PG 3.1mmHg RA Volume 32.00 ml LVOT VTI 13.2cm TAPSE 1.82 cm [ 1.71 - 5.00 ] MV Peak PG 6.3mmHg MV Mean PG 2.2 mmHg MV E Peak Yasmany 0.5 m/s [ 0.6 - 1.3 ] MV A Peak Yasmany 1.3 m/s [ 1.0 - 1.2 ] MV PHT 79.7 ms [ 20.0 - 100.0 ] MV Decel Time 355.9 ms [ 104.0 - 258.0 ] MVA PHT 2.8 ms MV E/A Ratio 0.4 PV Peak Yasmany 1.0 m/s [ 0.4 - 0.8 ] PV Peak PG 3.9 mmHg Lat E` Yasmany 0.16 m/s [ 0.10 - 0.15 ] Sept E' Yasmany 0.05 m/s [ 0.08 - 0.15 ] E/E` 3.12 RV S' 0.10 m/s 2D/MM Value Range Doppler ValueRange - FINDINGS: BP: Blood pressure: 148/92 mmHg. Left Ventricle: Normal global and regional left ventricular systolicfunction. Ejection Fraction is estimated at 65 %. Diastolic indices overall most consistentwith Grade I diastolic dysfunction (impaired myocardial relaxation without elevatedfilling pressures). Normal left ventricular cavity size. LV wall thickness iswithin normal limits. A sigmoid septum is present. There is an interventricular septalbounce noted. Right Ventricle: Normal right ventricular systolic function. Normal rightventricular size. Left Atrium: The left atrium is normal in size. Right Atrium: The right atrium is normal in size. Atrial Septum: Normal appearing atrial septum. Cannot exclude PFO byatrial septal color Doppler interrogation. Mitral Valve: Mitral stenosis is absent. There is no mitral regurgitation.Moderate mitral annular calcification. Aortic Valve: Aortic valve not well visualized. There is no aorticstenosis demonstrated. There is no aortic regurgitation. Normal functioning bioprosthetic aorticvalve. Tricuspid Valve: Normal appearance of the tricuspid leaflets. Tracetricuspid regurgitation. TR envelope inadequate to estimate RVSP. Pulmonic Valve: Grossly normal appearing pulmonic valve. There is nopulmonic stenosis. Trace pulmonic regurgitation. Pericardium: There is probably a pericardial effusion present although, ifso, it is poorly demonstrated and it would seemingly be small at most. Aortic Root and Aorta: Normal caliber aortic root. Upper normal sizedascending aorta. Aortic Arch: The aortic arch is poorly visualized. IVC: Normal appearance of the inferior vena cava. CONCLUSIONS: 1. Normal global and regional left ventricular systolic function. EjectionFraction is estimated at 65 %. Diastolic indices overall most consistent with Grade Idiastolic dysfunction (impaired myocardial relaxation without elevated fillingpressures). Normal left ventricular cavity size. LV wall thickness is within normal limits. Asigmoid septum is present. There is an interventricular septal bounce noted. 2. Normal right ventricular systolic function. Normal right ventricularsize. 3. Aortic valve not well visualized. There is no aortic stenosisdemonstrated. There is no aortic regurgitation. Normal functioning bioprosthetic aortic valve. 4. There is probably a pericardial effusion present although, if so, it ispoorly demonstrated and it would seemingly be small at most. Electronically Signed By: Kim Garcia MD mobap 01/10/2025 10:27:24 AM CDT us Pancho Rodriguez MD CV ECHO PROCEDURES Final Result * eGFR (01/10/2025 3:07 AM CDT) eGFR 78 >=60 mL/min/1. 73 m2 Comment: Interpretive Data Reference Interval Normal >/= 90 mL/min/1.73m2 Mildly decreased* 60 - 89 mL/min/1.73m2 Mildly to moderately decreased 45 - 59 mL/min/1.73m2 Moderately to severely decreased 30 - 44 mL/min/1.73m2 Severely decreased 15 - 29 mL/min/1.73m2 Kidney Failure < 15 mL/min/1.73m2 *Relative to young adult level Estimated glomerular filtration rate is determined by the 2020 CKD-EPI equation recommended by the National Kidney Foundation (A Unifying Approach to GFR Estimation: Recommendations of the NKF-ASK Task Force on Reassessing the Inclusion of Race in Diagnosing Kidney Disease, JASN 202). The CKD-EPI equation should not be used for patients with unstable renal function and has not been validated in children and those over 70. Current interpretive data was last reviewed 2021. Blood 01/10/2025 3:07 AM CDT 01/10/2025 3:57 AM CDT us Pancho Rodriguez MD LAB BLOOD ORDERABLES Final Resul t [facility] [address] [place] [address] * Differential, auto (01/10/2025 3:07 AM CDT) Neutrophil abs 6.50 1.50 - 6.50 K/cumm Imm gran abs 0.02 0.00 - 0.10 K/cumm [facility] Lymphocyte abs 1.38 0.80 - 3.30 K/cumm [facility] Monocyte abs 0.75 0.20 - 0.80 K/cumm [facility] Eosinophil abs 0.37 0.00 - 0.50 K/cumm [facility] Basophil abs 0.06 0.00 - 0.10 K/cumm [facility] Neutrophil pct 71.5 % [facility] Comment: Interpretive Data Percent cell count reference ranges are not reported, since discordance with absolute values may lead to misinterpretation of CBC data. Current Interpretive Data was last revised on 2017. Imm gran pct 0.2 % [facility] Comment: Interpretive Data Percent cell count reference ranges are not reported, since discordance with absolute values may lead to misinterpretation of CBC data. Current Interpretive Data was last revised on 2017. Lymphocyte pct 15.2 % [facility] Comment: Interpretive Data Percent cell count reference ranges are not reported, since discordance with absolute values may lead to misinterpretation of CBC data. Current Interpretive Data was last revised on 2017. Monocyte pct 8.3 % [facility] Comment: Interpretive Data Percent cell count reference ranges are not reported, since discordance with absolute values may lead to misinterpretation of CBC data. Current Interpretive Data was last revised on 2017. Eosinophil pct 4.1 % [facility] Comment: Interpretive Data Percent cell count reference ranges are not reported, since discordance with absolute values may lead to misinterpretation of CBC data. Current Interpretive Data was last revised on 2017. Basophil pct 0.7 % [facility] Comment: Interpretive Data Percent cell count reference ranges are not reported, since discordance with absolute values may lead to misinterpretation of CBC data. Current Interpretive Data was last revised on 2017. Blood 01/10/2025 3:07 AM CDT 01/10/2025 3:57 AM CDT us Pancho Rodriguez MD LAB BLOOD ORDERABLES Final Resul t Performing Organization Address [facility] Co de Phone Number [facility] [address] [employer] [place] [address] * (ABNORMAL) CBC with auto differential (01/10/2025 3:07 AM CDT) [facility] WBC 9.08 3.80 - 9.90 K/cumm Hgb 13.9 13.0 - 17.5 g/dL [facility] Hct 44.1 38.9 - 50.3 % [facility] Plt 240 150 - 400 K/cumm [facility] MPV 9.0(L) 9.1 - 12.3 fL [facility] RBC 5.89(H) 4.30 - 5.80 M/cumm [facility] MCV 74.9(L) 81.3 - 96.4 fL [facility] MCH 23.6(L) 27.1 - 33.3 pg [facility] MCHC 31.5(L) 32.3 - 35.7 g/dL [facility] RDW CV 15.6(H) 11.1 - 14.9 % [facility] RDW SD 41.1 35.7 - 48.1 fL [facility] NRBC abs 0.00 0.00 - 0.01 K/cumm [facility] Blood 01/10/2025 3:07 AM CDT 01/10/2025 3:57 AM CDT us Pancho Rodriguez MD LAB BLOOD ORDERABLES Final Resul t Performing Organization Address [facility]/ZIP Co de Phone Number [facility] [address] [place] [address] * (ABNORMAL) Basic metabolic panel (01/10/2025 3:07 AM CDT) Sodium 138 135 - 145 mmol/L Potassium, pl 4.5 3.3 - 4.9 mmol/L [facility] Chloride 101 97 - 110 mmol/L [facility] CO2 19(L) 22 - 32 mmol/L [facility] Anion gap 18(H) 2 - 15 mmol/L [facility] BUN 15 6 - 25 mg/dL [facility] Creatinine 0.99 0.80 - 1.30 mg/dL [facility] Glucose 144 70 - 199 mg/dL [facility] Comment: Interpretive Data Fasting glucose >/= 126 mg/dl is diagnostic for diabetes. Fasting is defined as no caloric intake for at least 8 hours. Fasting glucose between 100 mg/dl to 125 mg/dl is diagnostic of prediabetes. In a patient with classic symptoms of hyperglycemia or hyperglycemic crisis, a random glucose >/= 200 mg/dl is diagnostic for diabetes. In the absence of unequivocal hyperglycemia, results should be confirmed by repeat testing. The classification and Diagnosis of Diabetes Diabetes Care 2021; 46: S19-S40. Current interpretive data was last revised 2022. Calcium 9.3 8.5 - 10.3 mg/dL [facility] Blood 01/10/2025 3:07 AM CDT 01/10/2025 3:57 AM CDT us Pancho Bebe PAIGE LAB BLOOD ORDERABLES Final Resul t [facility] [address] [place] [address] * ECG 12 lead (01/09/2025 1:19 PM CDT) 01/09/2025 1:19 PM CDT Narrative [facility] - 01/11/2025 1:07 PM CDT Vent Rate: 71 bpm RR Interval: 835 msec ID Interval: 172 msec QRS Duration: 113 msec QT Interval: 401 msec QTC Interval: 424 msec P-R-T [place]: 51 - -24 - 54 degrees IMPRESSION: SINUS RHYTHM WITH OCCASIONAL ATRIAL PREMATURE AND VENTRICULAR PREMATURE COMPLEXES POSSIBLE LEFT ATRIAL ENLARGEMENT MODERATE INTRAVENTRICULAR CONDUCTION DELAY ABNORMAL ECG Electronically Signed By: Andrzej De La Fuente MD [facility] us Pancho Rodriguez MD ECG ORDERABLES Final Result [facility] * POCT glucose (01/09/2025 9:21 AM CDT) Glucose, POC 156 70 - 199 mg/dL Comment: For Glucose values <35 mg/dl when Hematocrit is >60 mg/dl,the test may not accurately detect significant hypoglycemia,and testing in the Laboratory should be considered if clinically indicated. POC Performer [id number] [facility] Blood 01/09/2025 9:21 AM CDT 01/09/2025 9:21 AM CDT us Pancho Rodriguez MD LAB POCT ORDERABLES - DEVICE Fin al Result Performing Organization Address City/[facility] Co de Phone Number [place] [phone] [place] [address] * TRANSTHORACIC ECHO (TTE) LIMITED/FOLLOW UP W LTD DOPPLER/CF W CONTRAST (01/09/2025 9:13 AM CDT) Anatomical Region Laterality Modality Ultrasound 01/09/2025 9:06 AM CDT Narrative 01/09/2025 1:55 PM CDT [facility] [address] [place] [address] LIMITED ECHOCARDIOGRAM Patient Name: ELSA ENGEL H : 1945 (79y 10m) Gender: M Study Date: 01/09/2025 09:06:21 AM Ht(Inch): 74 Wt(Lb): 173.06 BSA: 2.02 Manager Estate: [place] Location: [address] Order Provider: PANCHO RODRIGUEZ BMI: 22.22 BP: 143/76 Ref Provider: PANCHO RODRIGUEZ - PROCEDURES: Echocardiographic Report: Limited TTE with contrast. INDICATIONS: Aortic Valve Replacement. MEASUREMENTS: 2D/MM Value Range Doppler Value Range IVSd 2D 1.05 cm [ 0.60 - 1.00 ] AV Peak Yasmany 2.6 m/s [ 1.0 - 1.7 ] LVIDd 2D 4.34 cm [ 4.20 - 5.80 ] AV Peak PG 33.5 mmHg LVIDs 2D 3.11 cm [ 2.50 - 4.00 ] AV Mean PG 21.2 mmHg LVPWd 2D 1.11 cm [ 0.60 - 1.00 ] AV VTI 58.1 cm YAMILETH VTI 1.2 cm2 LVOT Peak Yasmany 0.71 m/s [ 0.70 - 1.10 ] LVOT Diam 2.2 cm LVOT VTI 18.3 cm 2D/MM Value Range Doppler Value Range - FINDINGS: BP: Blood pressure: 143/76 mmHg. Left Ventricle: Grossly normal left ventricular systolic function based on limited views. Inadequate for detailed regional wall motion assessment. Aortic Valve: Pre TAVR Heavily calcified aortic valve with severe aortic stenosis and mild aortic regurgitation Post TAVR Well-seated valve with no residual aortic stenosis and no aortic regurgitation. Pericardium: No significant pericardial effusion. CONCLUSIONS: 1. Grossly normal left ventricular systolic function based on limited views. Inadequate for detailed regional wall motion assessment. 2. Pre TAVR Heavily calcified aortic valve with severe aortic stenosis and mild aortic regurgitation Post TAVR Well-seated valve with no residual aortic stenosis and no aortic regurgitation. 3. No significant pericardial effusion. Electronically Signed By: Pancho Rodriguez MD 01/09/2025 1:55:00 PM CDT Procedure Note Pancho Rodriguez MD - 01/09/2025 [place] [id number] [place] [address] LIMITED ECHOCARDIOGRAM Patient Name: ELSA ENGEL H : 1945 (79y 10m) Gender: M Study Date: 01/09/2025 09:06:21 AM Ht(Inch): 74 Wt(Lb): 173.06 BSA: 2.02 Manager Estate: [place] Location: [address] Order Provider: PANCHO RODRIGUEZ BMI: 22.22 BP: 143/76 Ref Provider: PANCHO RODRIGUEZ - PROCEDURES: Echocardiographic Report: Limited TTE with contrast. INDICATIONS: Aortic Valve Replacement. MEASUREMENTS: 2D/MM Value Range Doppler ValueRange IVSd 2D 1.05 cm [ 0.60 - 1.00 ] AV Peak Yasmany 2.6 m/s [1.0 - 1.7 ] LVIDd 2D 4.34 cm [ 4.20 - 5.80 ] AV Peak PG 33.5 mmHg LVIDs 2D 3.11 cm [ 2.50 - 4.00 ] AV Mean PG 21.2 mmHg LVPWd 2D 1.11 cm [ 0.60 - 1.00 ] AV VTI 58.1 cm YAMILETH VTI 1.2 cm2 LVOT Peak Yasmany 0.71 m/s [ 0.70 - 1.10 ] LVOT Diam 2.2 cm LVOT VTI 18.3 cm 2D/MM Value Range Doppler ValueRange - FINDINGS: BP: Blood pressure: 143/76 mmHg. Left Ventricle: Grossly normal left ventricular systolic function based onlimited views. Inadequate for detailed regional wall motion assessment. Aortic Valve: Pre TAVR Heavily calcified aortic valve with severe aortic stenosis and mild aorticregurgitation Post TAVR Well-seated valve with no residual aortic stenosis and no aorticregurgitation. Pericardium: No significant pericardial effusion. CONCLUSIONS: 1. Grossly normal left ventricular systolic function based on limitedviews. Inadequate for detailed regional wall motion assessment. 2. Pre TAVR Heavily calcified aortic valve with severe aortic stenosis and mild aorticregurgitation Post TAVR Well-seated valve with no residual aortic stenosis and no aorticregurgitation. 3. No significant pericardial effusion. Electronically Signed By: Pancho Rodriguez MD 01/09/2025 1:55:00 PM CDT us Pancho Rodriguez MD CV ECHO PROCEDURES Final Result * REPLACEMENT AORTIC VALVE - TRANSFEMORAL ENDOVASCULAR APPROACH (01/09/2025 8:55 AM CDT) Anatomical Region Laterality Modality X-Ray Angiograph y Narrative 01/09/2025 8:14 AM CDT Please see OpNote for result. us Andrzej Valentin MD SURGICAL CASE ORDERS Final Result * TRANSCATHETER AORTIC VALVE REPLACEMENT (TAVR) OPEN FEMORAL ART APPROACH (01/09/2025 8:55 AM CDT) Anatomical Region Laterality Modality X-Ray Angiograph y Narrative 01/09/2025 9:23 AM CDT Images from the original result were not included. [facility] Cardiology [address] [place] [address], [address] [place] [address], [address] Transcatheter Aortic Valve Replacement Procedure Report 79 y.o. year old male with severe aortic stenosis referred for transcatheter aortic valve replacement Attending physicians: Andrzej Valentin MD, Pancho Rodriguez MD Access:8F Right Femoral Artery and 5F Left Femoral Artery Catheter:AL1 and Pigtail Injection:Ascending Aorta Closure:Celt and Manta Anticoagulation:[id number] Heparin, Clopidogrel, and Aspirin Air Kerma:205 mGy Fluoro time:5.6 min Contrast:31 ml Optiray Sedation:per anesthesia Estimated blood Loss: minimal Preprocedural Diagnosis: Aortic Stenosis Postprocedural Diagnosis: Aortic Stenosis Procedural details: After risks, benefits, and alternatives to the procedure were explained to the patient, they agreed to proceed. After signing informed consent the patient was brought to the cardiac catheterization laboratory/hybrid OR. They were prepped and draped in sterile fashion. All access was obtained with the modified Seldinger technique, micropuncture access, and ultrasound guidance. We placed an 8 Maltese sheath in the right femoral artery, and a 5 Maltese sheath in the left femoral artery. We then advanced a pigtail catheter from the femoral artery and perform ascending aortography. We then upsized the right femoral arterial sheath to a 14 Maltese sheath using serial dilatation. The aortic valve was crossed using an AL1 catheter and straight wire. We then exchanged for the Savvy wire. We then advanced a 26 mm Connell S3 Ultra valve (+2ml). The valve was deployed after positioning with aortography and under fluoroscopic guidance. This was performed with rapid pacing at 180 beats per minute. Patient tolerated the procedure well with no complaints. Transthoracic ECHO postprocedure demonstrated no perivalvular leak. The sheaths were removed and hemostasis was achieved. Patient will be transferred to the recovery unit for further management and care. A/P: Successful implantation of a 26 mm Connell S3 Ultra valve in aortic position with conscious sedation. Patient will continue aspirin and Plavix for at least 3 months. Plan echocardiogram tomorrow. Further management per the heart team. Pancho Rodriguez MD 01/09/2025 9:21 AM us Pancho Rodriguez MD CV CARDIAC CATH PROCEDURES Final Result * ID AN PROCEDURE PLACEHOLDER (01/09/2025 8:44 AM CDT) Elaido Hansen MD - 01/09/2025 8:44 AM CDT Eladio Lee MD 01/09/2025 8:44 AM Peripheral IV Catheter Patient location: OR Staff: Placed by: Anesthesiologist: Eladio Lee MD Preprocedure prep: Prep solution: alcohol PPE: gloves Skin infiltrated with lidocaine 1%: yes PIV line: Laterality: left Site: hand Catheter size: 16 g Technique: anatomical landmarks Procedure details: good blood return Number of attempts: 1 Assessment: Events: patient tolerated procedure well with no complications us Eladio Lee MD ANESTHESIA ORDERABLES Fi nal Result * ID AN PROCEDURE PLACEHOLDER (01/09/2025 8:44 AM CDT) Eladio Hansen MD - 01/09/2025 8:44 AM CDT Eladio Lee MD 01/09/2025 8:44 AM Arterial Line Patient location: OR Indication: continuous blood pressure monitoring and blood sampling needed Staff: Placed by: Anesthesiologist: Eladio Lee MD Procedure prep: Prep solution: chlorhexadine/alcohol Prep: provider hat/mask Skin infiltrated with lidocaine 1%: yes Arterial line: Catheter size: 20 gauge Catheter length: 1 and 3/8 inch Catheter type: wire-guided catheter Seldinger technique: yes Laterality: left Site: brachial artery Line secured: Tegaderm Results: good waveform and good blood return Number of attempts: 1 Assessment: Events: patient tolerated procedure well with no complications us Eladio Lee MD ANESTHESIA ORDERABLES Fi nal Result * (ABNORMAL) POC Activated Clotting Time, High Range (01/09/2025 8:23 AM CDT) ACT 275(H) 87 - 138 sec POC Performer [id number] [facility] Blood 01/09/2025 8:23 AM CDT 01/09/2025 8:23 AM CDT us Andrzej Valentin MD LAB BLOOD ORDERABLES Final Result Performing Organization Address [facility] Co de Phone Number [facility] [address] [employer] [place] [address] * POC Activated Clotting Time, High Range (01/09/2025 8:14 AM CDT) ACT 132 87 - 138 sec POC Performer [id number] [facility] Blood 01/09/2025 8:14 AM CDT 01/09/2025 8:14 AM CDT us Andrzej Valentin MD LAB BLOOD ORDERABLES Final Result Performing Organization Address [facility] Co de Phone Number [facility] [address] [place] [address] * POC Blood Gas and Chemistries, Arterial - (01/09/2025 8:14 AM CDT) Glucose, POC 178 70 - 199 mg/dL Blood 01/09/2025 8:14 AM CDT 01/09/2025 8:14 AM CDT us Andrzej Valentin MD LAB POCT ORDERABLES - ZHENG CE Final Result Performing Organization Address City/[facility]/ZIP Co de Phone Number [facility] [address] [employer] [place], [place] [id number] * eGFR (01/09/2025 6:35 AM CDT) eGFR 64 >=60 mL/min/1. 73 m2 Comment: Interpretive Data Reference Interval Normal >/= 90 mL/min/1.73m2 Mildly decreased* 60 - 89 mL/min/1.73m2 Mildly to moderately decreased 45 - 59 mL/min/1.73m2 Moderately to severely decreased 30 - 44 mL/min/1.73m2 Severely decreased 15 - 29 mL/min/1.73m2 Kidney Failure < 15 mL/min/1.73m2 *Relative to young adult level Estimated glomerular filtration rate is determined by the 2020 CKD-EPI equation recommended by the National Kidney Foundation (A Unifying Approach to GFR Estimation: Recommendations of the NKF-ASK Task Force on Reassessing the Inclusion of Race in Diagnosing Kidney Disease, JASN 2020). The CKD-EPI equation should not be used for patients with unstable renal function and has not been validated in children and those over 70. Current interpretive data was last reviewed 2021. Blood 01/09/2025 6:35 AM CDT 01/09/2025 6:52 AM CDT us Aline Serrano [employer] LAB BLOOD ORDERABLES Final Result Performing Organization Address City/[facility]/ZIP Co de Phone Number [facility] [address] Department of [employer] [place], [place] [id number] * (ABNORMAL) Differential, auto (01/09/2025 6:35 AM CDT) Neutrophil abs 4.72 1.50 - 6.50 K/cumm Imm gran abs 0.01 0.00 - 0.10 K/cumm [facility] Lymphocyte abs 1.31 0.80 - 3.30 K/cumm [facility] Monocyte abs 0.46 0.20 - 0.80 K/cumm [facility] Eosinophil abs 0.54(H) 0.00 - 0.50 K/cumm [facility] Basophil abs 0.07 0.00 - 0.10 K/cumm [facility] Neutrophil pct 66.4 % [facility] Comment: Interpretive Data Percent cell count reference ranges are not reported, since discordance with absolute values may lead to misinterpretation of CBC data. Current Interpretive Data was last revised on 2017. Imm gran pct 0.1 % [facility] Comment: Interpretive Data Percent cell count reference ranges are not reported, since discordance with absolute values may lead to misinterpretation of CBC data. Current Interpretive Data was last revised on 2017. Lymphocyte pct 18.4 % [facility] Comment: Interpretive Data Percent cell count reference ranges are not reported, since discordance with absolute values may lead to misinterpretation of CBC data. Current Interpretive Data was last revised on 2017. Monocyte pct 6.5 % [facility] Comment: Interpretive Data Percent cell count reference ranges are not reported, since discordance with absolute values may lead to misinterpretation of CBC data. Current Interpretive Data was last revised on 2017. Eosinophil pct 7.6 % [facility] Comment: Interpretive Data Percent cell count reference ranges are not reported, since discordance with absolute values may lead to misinterpretation of CBC data. Current Interpretive Data was last revised on 2017. Basophil pct 1.0 % [facility] Comment: Interpretive Data Percent cell count reference ranges are not reported, since discordance with absolute values may lead to misinterpretation of CBC data. Current Interpretive Data was last revised on 2017. Blood 01/09/2025 6:35 AM CDT 01/09/2025 6:52 AM CDT Aline Serrano [employer] LAB BLOOD ORDERABLES Final Result Performing Organization Address [facility] Center/[facility] Co de Phone Number [facility] [address] [employer] [place] [address] * Pro B-type natriuretic peptide (01/09/2025 6:35 AM CDT) NT-proBNP 264 <=450 pg/mL Comment: Interpretive Comments: A. Dyspnea in Acute Care Setting All Ages: < 300 pg/ml, acute heart failure unlikely. < 50 yrs: 300 - 450 pg/ml, further investigation warranted. > 450 pg/ml, acute heart failure likely. 50 - 74 yrs: 300 - 900 pg/ml, further investigation warranted. > 900 pg/ml, acute heart failure likely . > or = 75 yrs: 450 - 1800 pg/ml, further investigation warranted. > 1800 pg/ml, acute heart failure likely. B. Non-acute Setting < 75 yrs < 125 pg/ml, rules out heart failure. > or = 125 pg/ml, further investigation warranted. > or = 75 yrs < 450 pg/ml, rules out heart failure. > or = 450 pg/ml, further investigation warranted. - Knowledge of each individual patient's NT-proBNP range may be more useful than using similar cut-points for every patient. Please note that marked elevations in NT-proBNP levels may be observed in state other than Left Ventricular Congestive Failure, including: acute coronary syndromes, right heart strain/failure (including pulmonary embolism and cor pulmonale), critical illness, renal failure, as well as advanced age. - References: 1. Lena MONROE et.al. Eur Heart J. 2006:27:330-337. 2. Bertha RW, Patricia RIVER. J. AM Mynor Cardiol: Cardiovasc Imag. 2009;2: 216- 225. Interpretive Data Last Revised Date: 2018. Blood 01/09/2025 6:35 AM CDT 01/09/2025 6:52 AM CDT Aline Serrano [employer] LAB BLOOD ORDERABLES Final Result Performing Organization Address [facility] Co de Phone Number [facility] [address] [place] [address] * (ABNORMAL) CBC with auto differential (01/09/2025 6:35 AM CDT) WBC 7.11 3.80 - 9.90 K/cumm Hgb 13.7 13.0 - 17.5 g/dL [facility] Hct 44.4 38.9 - 50.3 % [facility] Plt 246 150 - 400 K/cumm [facility] MPV 9.0(L) 9.1 - 12.3 fL [facility] RBC 5.85(H) 4.30 - 5.80 M/cumm [facility] MCV 75.9(L) 81.3 - 96.4 fL [facility] MCH 23.4(L) 27.1 - 33.3 pg [facility] MCHC 30.9(L) 32.3 - 35.7 g/dL [facility] RDW CV 15.4(H) 11.1 - 14.9 % [facility] RDW SD 41.7 35.7 - 48.1 fL [facility] NRBC abs 0.00 0.00 - 0.01 K/cumm [facility] Blood 01/09/2025 6:35 AM CDT 01/09/2025 6:52 AM CDT Aline Serrano NP LAB BLOOD ORDERABLES Final Result [facility] [address] [place] [address] * Type and screen (01/09/2025 6:35 AM CDT) ABO Rh A Negative Eliezer, indirect Negative [facility] Blood 01/09/2025 6:35 AM CDT 01/09/2025 6:49 AM CDT Narrative [facility] - 01/09/2025 7:35 AM CDT No blood transfusions x 90 days. Set up 2 Units PRBC for day of surgery 01/09/2025 Has the patient had Daratumumab or Isatuximab in the past 6 months?->Unknown Aline Serrano NP LAB BLOOD BANK TEST ORDERA BLES Final Result Performing Organization Address City/[facility]/ZIP Co de Phone Number [facility] [address] [place] [place] [address] * (ABNORMAL) Basic metabolic panel (01/09/2025 6:35 AM CDT) [facility] Sodium 137 135 - 145 mmol/L Potassium, pl 5.0(H) 3.3 - 4.9 mmol/L [facility] Chloride 100 97 - 110 mmol/L [facility] CO2 25 22 - 32 mmol/L [facility] Anion gap 12 2 - 15 mmol/L [facility] BUN 17 6 - 25 mg/dL [facility] Creatinine 1.16 0.80 - 1.30 mg/dL [facility] Glucose 277(H) 70 - 199 mg/dL [facility] Comment: Interpretive Data Fasting glucose >/= 126 mg/dl is diagnostic for diabetes. Fasting is defined as no caloric intake for at least 8 hours. Fasting glucose between 100 mg/dl to 125 mg/dl is diagnostic of prediabetes. In a patient with classic symptoms of hyperglycemia or hyperglycemic crisis, a random glucose >/= 200 mg/dl is diagnostic for diabetes. In the absence of unequivocal hyperglycemia, results should be confirmed by repeat testing. The classification and Diagnosis of Diabetes Diabetes Care 2021; 46: S19-S40. Current interpretive data was last revised 2022. Calcium 9.8 8.5 - 10.3 mg/dL [facility] Blood 01/09/2025 6:35 AM CDT 01/09/2025 6:52 AM CDT Aline Serrano [employer] LAB BLOOD ORDERABLES Final Result Performing Organization Address [facility]/ZIP Co de Phone Number [facility] [address] [place] [place] [address] * Prepare RBC: 2 Units (01/09/2025 6:16 AM CDT) Product code [id number] Unit Number [id number] 2-X [facility] Product Blood Type ANEG [facility] Dispense Status RETURNED [facility] Product code [id number] [facility] Unit Number [id number] [id number] [facility] Product Blood Type ANEG [facility] Dispense Status RETURNED [facility] Blood 01/09/2025 6:16 AM CDT Narrative [facility] - 01/12/2025 4:00 PM CDT Specify Procedure:->TAVR Are special requirements needed? (All products are leukoreduced and CMV- safe)- >No Date required:-[id number] LRRBC # of [id number] Reasons:-Hold for procedure (specify procedure)} Aline Serrano NP BLOOD BANK PRODUCT ORDERAB LES Final Result [facility] [address] [place] [address] * CT chest without contrast (01/02/2025 7:58 AM CDT) Anatomical Region Laterality Modality Body N/A Computed Tomogra phy 01/02/2025 8:11 AM CDT Impressions 01/02/2025 8:11 AM CDT Stable small lung nodules compared to 12/03/2024. CT chest follow-up recommended in 6-12 months. Electronically signed by: Christiano Chakraborty M.D. Narrative 01/02/2025 8:[address] chest without contrast. HISTORY: Lung nodule. TECHNIQUE: CT chest was done without contrast. FINDINGS: Comparison CT images 12/03/2024. Atherosclerosis is especially severe in the coronary arteries. No thoracic adenopathy. Heart size normal. Mild symmetric gynecomastia bilaterally. No definite acute findings in the partially included upper most abdomen. No acute fracture. No acute bone destruction seen. No evidence of pneumonia or pulmonary edema. Right apical lung nodule of 4 mm is noncalcified, indeterminate, and unchanged from 12/03/2024 study. There is a small cluster of micronodules in the right lower lobe likely inflammatory/infectious and similar to prior study. A 2 mm noncalcified left lower lobe lung nodule is similar to prior study. Mild pulmonary emphysema is suspected. There is no evidence of pneumonia. There is no pulmonary edema. Procedure Note Christiano Chakraborty MD - 01/02/2025 CT chest without contrast. HISTORY: Lung nodule. TECHNIQUE: CT chest was done without contrast. FINDINGS: Comparison CT images 12/03/2024. Atherosclerosis is especially severe in the coronary arteries. No thoracic adenopathy. Heart size normal. Mild symmetric gynecomastia bilaterally. No definite acute findings in the partially included upper most abdomen. No acute fracture. No acute bone destruction seen. No evidence of pneumonia or pulmonary edema. Right apical lung nodule of 4 mm is noncalcified, indeterminate, and unchanged from 12/03/2024 study. There is a small cluster of micronodules in the right lower lobe likely inflammatory/infectious and similar to prior study. A 2 mm noncalcified left lower lobe lung nodule is similar to prior study. Mild pulmonary emphysema is suspected. There is no evidence of pneumonia. There is no pulmonary edema. IMPRESSION: Stable small lung nodules compared to 12/03/2024. CT chest follow-up recommended in 6-12 months. Electronically signed by: Christiano Chakraborty M.D. Aline Serrano NP IMG CT PROCEDURES Final Re sult * RIGHT LEFT HEART CATHETERIZATION CORONARY GRAFT WITH WITHOUT LEFT VENTRICULOGRAPHY ANGIOGRAM (12/18/2024 1:10 PM CDT) Anatomical Region Laterality Modality X-Ray Angiograph y Narrative 12/18/2024 1:28 PM CDT Images from the original result were not included. [facility] Cardiology [facility], [id number] [place] [address], [id number] Right and Left Heart Catheterization Procedure Report 79 y.o. year old male with coronary artery disease status post CABG now with aortic stenosis referred for right and left heart catheterization. Attending Physician: Pancho Rodriguez MD Access:5F Right Femoral Artery and 7F Right Femoral Vein Catheter:SARAH, FL4, FR4, and Steen Injection:Left Main Trunk, Right Coronary Artery, SVG, Left Subclavian, and BUTT Closure:Celt and Vascade Anticoagulation:None Air Kerma: 203 mGy Fluoro time:4.8 min Contrast:95 ml Optiray Sedation:1mg Versed, 50 mcg fentanyl Estimated blood Loss: minimal Preprocedural Diagnosis: Coronary artery disease, aortic stenosis Postprocedural Diagnosis: Coronary artery disease, aortic stenosis Procedural details: After risks, benefits, and alternatives to the procedure were explained to the patient, they agreed to proceed. After signing informed consent the patient was brought to the cardiac catheterization laboratory. There were prepped and draped in sterile fashion. A 5 Maltese sheath was inserted in the Right Femoral Artery using the modified Seldinger technique and ultrasound guidance. A 7 Maltese sheath was inserted in the Right Femoral Vein using the modified Seldinger technique and ultrasound guidance. We then performed Right Heart Catheterization using the Steen catheter, measuring Franklin cardiac outputs. We then performed selective coronary angiography and bypass graft angiography using various catheters. We then crossed the aortic valve and measured hemodynamics using a pigtail catheter. At completion of the case a Celt was deployed at the femoral artery and a Vascade of the femoral vein with good hemostasis achieved. The patient tolerated the procedure well with no complaints and was transferred to the floor for further monitoring and care. Findings: Right heart catheterization Right atrium: 5 mm Hg Right ventricle: 25/5 mm Hg Pulmonary artery: 25/5 mm Hg, saturation 68.1% Pulm Cap Wedge Pressure: 5 mm Hg Franklin cardiac output/cardiac index: 5.27/2.58 LMT: 90% distal LAD: 100% proximal, distal fills via patent BUTT, 1st and 2nd diagonal fills via patent radial graft LCX: 100% proximal, distal OM fills via patent SVG RCA: Dominant, 99% subtotal occlusion mid, distal fills via patent SVG Left subclavian: Normal Butt to LAD: Patent SVG to OM: Patent SVG to PDA: Patent Radial to D1 to D2: Patent LV: 150/5 mm Hg Ao: 120/55 mm Hg, saturation 91% Aortic valve mean gradient 28 mm Hg Aortic valve area 0.98 centimeter squared A/P: Normal filling pressures and cardiac output. Stable coronary artery disease with a patent grafts. Severe aortic stenosis. Continue workup for TAVR Pancho Rodriguez MD 12/18/2024 1:10 PM Andrzej Valentin MD CV CARDIAC CATH PROCEDURES Final Result * POCT glucose (12/18/2024 12:14 PM CDT) Glucose, POC 168 70 - 199 mg/dL Comment: For Glucose values <35 mg/dl when Hematocrit is >60 mg/dl,the test may not accurately detect significant hypoglycemia,and testing in the Laboratory should be considered if clinically indicated. POC Performer [phone] [facility] Blood 12/18/2024 12:1 4 PM CDT 12/18/2024 12:14 PM CDT us Pancho Rodriguez MD LAB POCT ORDERABLES - DEVICE Fin al Result [facility] [address] Department [place] [address] * eGFR (12/03/2024 11:20 AM CDT) eGFR 74 >=60 mL/min/1. 73 m2 Comment: Interpretive Data Reference Interval Normal >/= 90 mL/min/1.73m2 Mildly decreased* 60 - 89 mL/min/1.73m2 Mildly to moderately decreased 45 - 59 mL/min/1.73m2 Moderately to severely decreased 30 - 44 mL/min/1.73m2 Severely decreased 15 - 29 mL/min/1.73m2 Kidney Failure < 15 mL/min/1.73m2 *Relative to young adult level Estimated glomerular filtration rate is determined by the 2020 CKD-EPI equation recommended by the National Kidney Foundation (A Unifying Approach to GFR Estimation: Recommendations of the NKF-ASK Task Force on Reassessing the Inclusion of Race in Diagnosing Kidney Disease, JASN 2020). The CKD-EPI equation should not be used for patients with unstable renal function and has not been validated in children and those over 70. Current interpretive data was last reviewed 2021. Blood 12/03/2024 11:2 0 AM CDT 12/03/2024 11:39 AM CDT Aline Serrano NP LAB BLOOD ORDERABLES Final Result [facility] [address] Department [place] [address] * Differential, auto (12/03/2024 11:20 AM CDT) Neutrophil abs 4.93 1.50 - 6.50 K/cumm Imm gran abs 0.02 0.00 - 0.10 K/cumm [facility] Lymphocyte abs 1.67 0.80 - 3.30 K/cumm [facility] Monocyte abs 0.44 0.20 - 0.80 K/cumm [facility] Eosinophil abs 0.25 0.00 - 0.50 K/cumm [facility] Basophil abs 0.06 0.00 - 0.10 K/cumm [facility] Neutrophil pct 66.8 % [facility] Comment: Interpretive Data Percent cell count reference ranges are not reported, since discordance with absolute values may lead to misinterpretation of CBC data. Current Interpretive Data was last revised on 2017. Imm gran pct 0.3 % [facility] Comment: Interpretive Data Percent cell count reference ranges are not reported, since discordance with absolute values may lead to misinterpretation of CBC data. Current Interpretive Data was last revised on 2017. Lymphocyte pct 22.7 % [facility] Comment: Interpretive Data Percent cell count reference ranges are not reported, since discordance with absolute values may lead to misinterpretation of CBC data. Current Interpretive Data was last revised on 2017. Monocyte pct 6.0 % [facility] Comment: Interpretive Data Percent cell count reference ranges are not reported, since discordance with absolute values may lead to misinterpretation of CBC data. Current Interpretive Data was last revised on 2017. Eosinophil pct 3.4 % [facility] Comment: Interpretive Data Percent cell count reference ranges are not reported, since discordance with absolute values may lead to misinterpretation of CBC data. Current Interpretive Data was last revised on 2017. Basophil pct 0.8 % [facility] Comment: Interpretive Data Percent cell count reference ranges are not reported, since discordance with absolute values may lead to misinterpretation of CBC data. Current Interpretive Data was last revised on 2017. Blood 12/03/2024 11:2 0 AM CDT 12/03/2024 11:39 AM CDT Aline Serrano NP LAB BLOOD ORDERABLES Final Result [facility] [address] Department [place] [address] * Pro B-type natriuretic peptide (12/03/2024 11:20 AM CDT) NT-proBNP 352 <=450 pg/mL Comment: Interpretive Comments: A. Dyspnea in Acute Care Setting All Ages: < 300 pg/ml, acute heart failure unlikely. < 50 yrs: 300 - 450 pg/ml, further investigation warranted. > 450 pg/ml, acute heart failure likely. 50 - 74 yrs: 300 - 900 pg/ml, further investigation warranted. > 900 pg/ml, acute heart failure likely . > or = 75 yrs: 450 - 1800 pg/ml, further investigation warranted. > 1800 pg/ml, acute heart failure likely. B. Non-acute Setting < 75 yrs < 125 pg/ml, rules out heart failure. > or = 125 pg/ml, further investigation warranted. > or = 75 yrs < 450 pg/ml, rules out heart failure. > or = 450 pg/ml, further investigation warranted. - Knowledge of each individual patient's NT-proBNP range may be more useful than using similar cut-points for every patient. Please note that marked elevations in NT-proBNP levels may be observed in state other than Left Ventricular Congestive Failure, including: acute coronary syndromes, right heart strain/failure (including pulmonary embolism and cor pulmonale), critical illness, renal failure, as well as advanced age. - References: 1. Lena MONROE et.al. Eur Heart J. 2006:27:330-337. 2. Bertha RW, Gomez AM. J. AM Mynor Cardiol: Cardiovasc Imag. 2009;2: 216- 225. Interpretive Data Last Revised Date: 2018. Blood 12/03/2024 11:2 0 AM CDT 12/03/2024 11:39 AM CDT us Kim Garcia MD LAB BLOOD ORDERABLES Final Result Performing Organization Address [facility]/ZIP Co de Phone Number [facility] [address] [employer] [place] [address] * (ABNORMAL) CBC with auto differential (12/03/2024 11:20 AM CDT) Pathologist [facility] WBC 7.37 3.80 - 9.90 K/cumm Hgb 14.9 13.0 - 17.5 g/dL [facility] Hct 47.9 38.9 - 50.3 % [facility] Plt 256 150 - 400 K/cumm [facility] MPV 9.2 9.1 - 12.3 fL [facility] RBC 6.29(H) 4.30 - 5.80 M/cumm [facility] MCV 76.2(L) 81.3 - 96.4 fL [facility] MCH 23.7(L) 27.1 - 33.3 pg [facility] MCHC 31.1(L) 32.3 - 35.7 g/dL [facility] RDW CV 15.5(H) 11.1 - 14.9 % [facility] RDW SD 40.3 35.7 - 48.1 fL [facility] NRBC abs 0.00 0.00 - 0.01 K/cumm [facility] Blood 12/03/2024 11:2 0 AM CDT 12/03/2024 11:39 AM CDT us Aline Serrano NP LAB BLOOD ORDERABLES Final Result Performing Organization Address City/[facility]/ZIP Co de Phone Number [facility] [address] [place] [address] * Type and screen (12/03/2024 11:20 AM CDT) Pathologist [facility] ABO Rh A Negative Eliezer, indirect Negative [facility] Blood 12/03/2024 11:2 0 AM CDT 12/03/2024 11:51 AM CDT Narrative [facility] - 12/03/2024 12:27 PM CDT No blood transfusions in the last 90 days. Pt will need 2 units of PRBC's set up for surgery TBD Has the patient had Daratumumab or Isatuximab in the past 6 months?->Unknown Aline Serrano NP LAB BLOOD BANK TEST ORDERA BLES Final Result [facility] [address] Department [place] [address] * (ABNORMAL) Basic metabolic panel (12/03/2024 11:20 AM CDT) Pathologist [facility] Sodium 135 135 - 145 mmol/L Potassium, pl 4.6 3.3 - 4.9 mmol/L [facility] Chloride 99 97 - 110 mmol/L [facility] CO2 23 22 - 32 mmol/L [facility] Anion gap 13 2 - 15 mmol/L [facility] BUN 14 6 - 25 mg/dL [facility] Creatinine 1.03 0.80 - 1.30 mg/dL [facility] Glucose 246(H) 70 - 199 mg/dL [facility] Comment: Interpretive Data Fasting glucose >/= 126 mg/dl is diagnostic for diabetes. Fasting is defined as no caloric intake for at least 8 hours. Fasting glucose between 100 mg/dl to 125 mg/dl is diagnostic of prediabetes. In a patient with classic symptoms of hyperglycemia or hyperglycemic crisis, a random glucose >/= 200 mg/dl is diagnostic for diabetes. In the absence of unequivocal hyperglycemia, results should be confirmed by repeat testing. The classification and Diagnosis of Diabetes Diabetes Care 2021; 46: S19-S40. Current interpretive data was last revised 2022. Calcium 9.5 8.5 - 10.3 mg/dL [facility] Blood 12/03/2024 11:2 0 AM CDT 12/03/2024 11:39 AM CDT Aline Serrano NP LAB BLOOD ORDERABLES Final Result [facility] [address] [place] [address] * ECG 12 lead (12/03/2024 9:36 AM CDT) 12/03/2024 9:31 AM CDT Narrative [facility] - 12/03/2024 2:15 PM CDT Vent Rate: 76 bpm RR Interval: 784 msec ID Interval: 129 msec QRS Duration: 121 msec QT Interval: 383 msec QTC Interval: 413 msec P-R-T [place]: 116 - -8 - 127 degrees IMPRESSION: SINUS RHYTHM WITH SINUS ARRHYTHMIA POSSIBLE LEFT ATRIAL ENLARGEMENT [-0.1mV P WAVE IN V1/V2] MODERATE INTRAVENTRICULAR CONDUCTION DELAY [105+ ms QRS DURATION, 80+ ms Q/S IN V1/V2, NO Q AND 60+ ms R IN I/aVL/V5/V6] ABNORMAL QRS-T ANGLE [QRS-T AXIS DIFFERENCE > 60] ABNORMAL ECG Electronically Signed By: Rubin Swift MD, [facility] Aline Serrano [employer] ECG ORDERABLES Final Resu lt Performing Organization Address [facility] Co de Phone Number [facility] * CT TAVR (12/03/2024 9:11 AM CDT) Anatomical Region Laterality Modality Chest N/A Computed Tomogra phy 12/04/2024 8:38 AM CDT Impressions 12/04/2024 9:09 AM CDT 1. Aortic valvular stenosis. 2. Aortic annulus, and abdominal aortic, common iliac, external iliac and femoral artery measurements in preparation for TAVR procedure as described above. 3. Aortic valve calcium score: Agatston 2754, Volume 2124 mm3. 4. Indeterminate 4 mm nodule in the right lung apex. Recommend correlation with prior examination is available. If unavailable, Recommend follow up of the Incidental lung nodule Additional Imaging In 12 Months with non contrast chest CT. Dictated by: Sharon Varma MD The radiology attending physician has personally reviewed this study, and had reviewed and/or edited this written report and agrees with it. Electronically signed by: Michelle Clement M.D. Narrative 12/04/2024 9:09 AM CDT EXAMINATION: Heart CT and CTA abdomen and pelvis with contrast. History: Severe aortic stenosis, pre-TAVR procedure. Technique: Heart CT and CT angiogram of the abdomen and pelvis performed during administration of 110 mL of Optiray 350, intravenously per TAVR Protocol. Images were transferred to an independent workstation for additional 3D post-processing. FINDINGS: Annulus and Thoracic Aortic Measurements (in systole): Aortic valve annulus: Area 605 mm2: circumference 95 mm; 32 mm maximum diameter x 25 mm minimum diameter. Sinuses of Valsalva: 38 mm diameter sagittal x 35 mm diameter coronal. Sinotubular junction: 32 mm diameter sagittal x 32 mm diameter coronal. Maximum diameter of ascending aorta: 38 x 38 mm Aortic valve calcium score: Agatston 2754, Volume 2124 mm3. Coronary sinus heights: Right coronary sinus height: 22 Left coronary sinus height: 22 Non-coronary sinus height: 25 There is no left ventricular outflow tract calcification. There is no mitral annular calcification. Distance to RCA ostium from aortic valve annulus: 20 mm Distance to left main ostium from annulus: 18 mm Deployment angle: 12 MALDIVIAN, 9 cranial Coronary Arteries: Severe three-vessel coronary artery disease. Anomalous coronary artery course: No Abdominal Aortic and Pelvic Arterial Smallest Diameter Measurements (made from centerline curved MPRs): Infrarenal aorta: 12 mm x 17 mm Right common iliac artery: 9 mm x 10 mm. There is Moderate calcification Left common iliac artery: 9 mm x 10 mm . There is Moderate calcification. There is no tortuosity of the bilateral common iliac arteries. Right external iliac artery: 9 mm x 9 mm. There is no calcification. Left external iliac artery: 10 mm x 10 mm. There is no calcification. There is Mild tortuosity of the bilateral external iliac arteries. This is more severe on the left. Right common femoral artery: 8 mm x 8 mm. There is Severe calcification. Left common femoral artery: 7 mm x 9 mm. There is Severe calcification. There is no tortuosity of the bilateral femoral arteries. Other findings: Indeterminate 4 mm nodule in the right lung apex. Status post median sternotomy and coronary artery bypass graft. Enhancing lesion in hepatic segment IVb likely hemangioma. A hyperenhancing lesion in hepatic segment 6 is a flash filling hemangioma or an area of shunting. Focal fat deposition adjacent to the falciform ligament. No suspicious liver lesions. Cortical cysts in both kidneys and multiple hypoattenuating lesions throughout both kidneys to small to characterize and likely cysts. No suspicious osseous lesions. Procedure Note Michelle Clement MD - 12/04/2024 EXAMINATION: Heart CT and CTA abdomen and pelvis with contrast. History: Severe aortic stenosis, pre-TAVR procedure. Technique: Heart CT and CT angiogram of the abdomen and pelvis performed during administration of 110 mL of Optiray 350, intravenously per TAVR Protocol. Images were transferred to an independent workstation for additional 3D post-processing. FINDINGS: Annulus and Thoracic Aortic Measurements (in systole): Aortic valve annulus: Area 605 mm2: circumference 95 mm; 32 mm maximum diameter x 25 mm minimum diameter. Sinuses of Valsalva: 38 mm diameter sagittal x 35 mm diameter coronal. Sinotubular junction: 32 mm diameter sagittal x 32 mm diameter coronal. Maximum diameter of ascending aorta: 38 x 38 mm Aortic valve calcium score: Agatston 2754, Volume 2124 mm3. Coronary sinus heights: Right coronary sinus height: 22 Left coronary sinus height: 22 Non-coronary sinus height: 25 There is no left ventricular outflow tract calcification. There is no mitral annular calcification. Distance to RCA ostium from aortic valve annulus: 20 mm Distance to left main ostium from annulus: 18 mm Deployment angle: 12 MALDIVIAN, 9 cranial Coronary Arteries: Severe three-vessel coronary artery disease. Anomalous coronary artery course: No Abdominal Aortic and Pelvic Arterial Smallest Diameter Measurements (made from centerline curved MPRs): Infrarenal aorta: 12 mm x 17 mm Right common iliac artery: 9 mm x 10 mm. There is Moderate calcification Left common iliac artery: 9 mm x 10 mm . There is Moderate calcification. There is no tortuosity of the bilateral common iliac arteries. Right external iliac artery: 9 mm x 9 mm. There is no calcification. Left external iliac artery: 10 mm x 10 mm. There is no calcification. There is Mild tortuosity of the bilateral external iliac arteries. This is more severe on the left. Right common femoral artery: 8 mm x 8 mm. There is Severe calcification. Left common femoral artery: 7 mm x 9 mm. There is Severe calcification. There is no tortuosity of the bilateral femoral arteries. Other findings: Indeterminate 4 mm nodule in the right lung apex. Status post median sternotomy and coronary artery bypass graft. Enhancing lesion in hepatic segment IVb likely hemangioma. A hyperenhancing lesion in hepatic segment 6 is a flash filling hemangioma or an area of shunting. Focal fat deposition adjacent to the falciform ligament. No suspicious liver lesions. Cortical cysts in both kidneys and multiple hypoattenuating lesions throughout both kidneys to small to characterize and likely cysts. No suspicious osseous lesions. IMPRESSION: 1. Aortic valvular stenosis. 2. Aortic annulus, and abdominal aortic, common iliac, external iliac and femoral artery measurements in preparation for TAVR procedure as described above. 3. Aortic valve calcium score: Agatston 2754, Volume 2124 mm3. 4. Indeterminate 4 mm nodule in the right lung apex. Recommend correlation with prior examination is available. If unavailable, Recommend follow up of the Incidental lung nodule Additional Imaging In 12 Months with non contrast chest CT. Dictated by: Sharon Varma MD The radiology attending physician has personally reviewed this study, and had reviewed and/or edited this written report and agrees with it. Electronically signed by: Michelle Clement M.D. Aline Serrano NP IMG CT PROCEDURES Final Re sult * STRESS ECHO EXERCISE WO DOPPLER/CF W CONTRAST (11/21/2024 12:07 PM CDT) Anatomical Region Laterality Modality Ultrasound 11/21/2024 11:1 0 AM CDT Narrative 11/22/2024 2:05 PM CDT [facility] [address] [place] [address] STRESS ECHOCARDIOGRAM Patient Name: ELSA ENGEL : 1945 (79y 8m) Gender: M Study Date: 11/21/2024 11:10:44 AM Ht(Inch): 74 Wt(Lb): 180.01 BSA: 2.06 Manager Estate: KEVON Zhu Provider: KIM GACRIA Heart Rate: 73 BMI: 23.11 BP: 150/64 Ref Provider: KIM GARCIA PROCEDURES: Stress Echo Report: Treadmill stress echocardiogram with contrast contrast agent, used to visually enhance endocardial wall motion and contractility. 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 FINDINGS: Procedure Data: Protocol - Jordi Protocol. Exercise Time: 3.33 Resting HR 68 bpm Peak HR: 104 bpm Predicted Maximal HR 142 bpm Target HR: 121 bpm Percent Max Predicted HR Achieved: 73 % Baseline BP: 111/77 Peak BP: 122/56 METS achieved: 4.8 Rate-Pressure Product: 63269 BPM*mmHg Angina Index (0=No angina during exercise, 1=non-limiting angina, 2=exercise limited angina): 0 Performed By: Gillian Matthews RN. Supervising Physician: The supervising physician is Dr. Garcia. Resting LV Function: Normal left ventricular size and global systolic function. Baseline Ejection Fraction is estimated to be 60 %. Resting ECG: Sinus rhythm. Poor R-wave progression. Exercise ECG: < 1 mm horizontal inferior/lateral ST depression. Resting Segmental Wall Motion Analysis: Normal resting segmental wall motion. Peak Segmental Wall Motion Analysis: There may be apical hypokinesis, uncertain. Exercise Capacity: Low exercise capacity. Cardiac Symptoms With Stress: Symptoms with stress were Dyspnea. Reason For Termination: Unable to keep up with treadmill. Unsteady gait. Target HR Achieved: Target heart rate was not achieved. Arrhythmia: No arrhythmias seen. BP Response: Blood pressure response is hypotensive. BP kristine to 178/52 early in exercise and then progressively dropped to 122/56. CONCLUSIONS: 1. Low exercise capacity. 2. Normal left ventricular size and global systolic function. Baseline Ejection Fraction is estimated to be 60 %. 3. Peak Segmental Wall Motion Analysis: There may be apical hypokinesis, uncertain. 4. Blood pressure response is hypotensive. BP kristine to 178/52 early in exercise and then progressively dropped to 122/56. 5. Low exercise capacity. Electronically Signed By: Kim garcia 11/22/2024 2:04:59 PM CDT Procedure Note Kim Garcia MD - 11/22/2024 [facility] [address] [place] [id number] STRESS ECHOCARDIOGRAM Patient Name: ELSA ENGEL : 1945 (79y 8m) Gender: M Study Date: 11/21/2024 11:10:44 AM Ht(Inch): 74 Wt(Lb): 180.01 BSA: 2.06 Manager Estate: KEVON Order Provider: KIM GARCIA Heart Rate: 73 BMI: 23.11 BP: 150/64 Ref Provider: KIM GARCIA PROCEDURES: Stress Echo Report: Treadmill stress echocardiogram with contrast contrastagent, used to visually enhance endocardial wall motion and contractility. 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 FINDINGS: Procedure Data: Protocol - Jordi Protocol. Exercise Time: 3.33 Resting HR 68 bpm Peak HR: 104 bpm Predicted Maximal HR 142 bpm Target HR: 121 bpm Percent Max Predicted HR Achieved: 73 % Baseline BP: 111/77 Peak BP: 122/56 METS achieved: 4.8 Rate-Pressure Product: 05554 BPM*mmHg Angina Index (0=No angina during exercise, 1=non-limiting angina,2=exercise limited angina): 0 Performed By: Gillian Matthews RN. Supervising Physician: The supervising physician is Dr. Garcia. Resting LV Function: Normal left ventricular size and global systolicfunction. Baseline Ejection Fraction is estimated to be 60 %. Resting ECG: Sinus rhythm. Poor R-wave progression. Exercise ECG: < 1 mm horizontal inferior/lateral ST depression. Resting Segmental Wall Motion Analysis: Normal resting segmental wallmotion. Peak Segmental Wall Motion Analysis: There may be apical hypokinesis,uncertain. Exercise Capacity: Low exercise capacity. Cardiac Symptoms With Stress: Symptoms with stress were Dyspnea. Reason For Termination: Unable to keep up with treadmill. Unsteady gait. Target HR Achieved: Target heart rate was not achieved. Arrhythmia: No arrhythmias seen. BP Response: Blood pressure response is hypotensive. BP kristine to 178/52early in exercise and then progressively dropped to 122/56. CONCLUSIONS: 1. Low exercise capacity. 2. Normal left ventricular size and global systolic function. BaselineEjection Fraction is estimated to be 60 %. 3. Peak Segmental Wall Motion Analysis: There may be apical hypokinesis,uncertain. 4. Blood pressure response is hypotensive. BP kristine to 178/52 early inexercise and then progressively dropped to 122/56. 5. Low exercise capacity. Electronically Signed By: Kim Garcia MD [employer] 11/22/2024 2:04:59 PM CDT Kim Garcia MD CV ECHO PROCEDURES Final R esult * POCT lipid panel (10/22/2024 1:06 PM CDT) [facility] Cholesterol, POC 100 mg/dL HDL, POC 26 mg/dL Triglycerides, POC 143 mg/dL LDL Cholesterol POC 45.4 mg/dL Capillary blood 10/22/2024 1 :06 PM CDT Kim Garcia MD POINT OF CARE TEST ORDERAB LES Final Result * (ABNORMAL) Hemoglobin A1c (11/28/2018 10:07 AM CDT) [facility] Hgb A1C 7.7(H) <5.7 % of total Hgb [facility] [place] Comment: For someone without known diabetes, a hemoglobin A1c value of 6.5% or greater indicates that they may have diabetes and this should be confirmed with a follow-up test. For someone with known diabetes, a value <7% indicates that their diabetes is well controlled and a value greater than or equal to 7% indicates suboptimal control. A1c targets should be individualized based on duration of diabetes, age, comorbid conditions, and other considerations. Currently, no consensus exists regarding use of hemoglobin A1c for diagnosis of diabetes for children. 11/28/2018 10:0 7 AM CDT 11/28/2018 10:07 AM CDT Narrative [facility] - 11/29/2018 2:14 AM CDT CC TO PCP DR MALONEY FASTING:YES FASTING: YES Resulting Agency Comment Performing Organization Information: Site ID: [id number] Name: [email or web address] Address: [address] [facility] [place] [address] Director: Andi Espinoza D.O., MPH Kim Shah MD LAB BLOOD ORDERABLES Silva l Result [facility] [employer] [facility] [place] from Last 3 Months or Most Recently Relevant to Health Maintenance Insurance MEDICARE [facility] MEDICARE [facility] Address: [address] [place], [place] [id number] [employer] MEDICARE [employer]ANT[employer] [facility] Address: [address] [place] [address] Advance Directives For more information, please contact: [phone] Documents on File Type Date Recorded 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 ADVANCE DIRECTIVE 08/15/2018 12:49 PM ADVANCE DIRECTIVE 08/15/2018 12:49 PM * Full Code (Latest Code Status on File) Date Activated Date Inactivated Comments 01/09/2025 6:15 AM 01/10/2025 5:49 PM * Full Code Date Activated Date Inactivated Comments 08/12/2018 10:04 AM 08/20/2018 4:46 PM Care 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
--- OUTSIDE RECORDS SUMMARY | 2025-02-13 09:28 | XMS_ITS | Referral Summary ---
Author Organization [facility] Building D Address [address] [place] [address] Care Team Providers Care Orientation And Mobility Specialist Name Role Phone Kim Shah MD Primary Care Provider [phone] Kim Garcia MD Unavailable Kim Garcia MD Unavailable Pancho Rodriguez MD Unavailable Encounters Date Type Department Care Team Description 01/14/2025 Telephone [facility] Medical Group Cardiology [address] [facility] [address] [place] [address] Pancho Rodriguez MD 01/13/2025 Telephone Cardiovascular and Thoracic Surgery [address] [facility] [address] [place] [address] Regine Simmons, SHARIFA 01/12/2025 Telephone [facility] [place] [address] [facility] [address] [place] [address] Lilly Thorpe EP-C Cardiac Rehab Navigator Education Call 01/09/2025 6:01 AM CDT - 01/10/2025 1:48 PM CDT Hospital Encounter [facility] [address] [place] [phone] Andrzej Valentin MD Theodos, Gus, MD Nonrheumatic aortic valve stenosis; Encounter for examination for normal comparison and control in clinical research program Discharge Disposition: Discharge to home or self care 01/09/2025 7:35 AM CDT Anesthesia Event [facility] Operating Room [address] [place] [phone] Eladio Lee MD Peterson, Nathan Scott, CRNA 01/09/2025 7:45 AM CDT - 01/09/2025 9:50 AM CDT Surgery [facility] Operating Room [address] [place] [phone] Andrzej Valentin MD REPLACEMENT AORTIC VALVE - TRANSFEMORAL ENDOVASCULAR APPROACH 01/08/2025 Orders Only Cardiovascular and Thoracic Surgery [address] [place] [address] [place] [phone] Aline Serrano NP Lung nodules (Primary Dx) 01/08/2025 Telephone Cardiovascular and Thoracic Surgery [address] [place] [address] [place] [phone] Aline Serrano NP 01/02/2025 7:33 AM CDT - 01/02/2025 11:59 PM CDT Hospital Encounter [facility] - Imaging [address] [place] [phone] Lung nodule seen on imaging study Discharge Disposition: Discharge to home or self care 12/25/2024 Results Follow-Up Cardiovascular and Thoracic Surgery [address] [place] [phone] TAVR 12/24/2024 Documentation Cardiovascular and Thoracic Surgery [address] [place] [phone] Beverley Pires 12/23/2024 Telephone Cardiovascular and Thoracic Surgery [address] [place] [address] [place] [phone] Regine Simmons, SHARIFA 12/18/2024 12:00 PM CDT - 12/18/2024 1:15 PM CDT Surgery [facility] Heart Center [address] [place] [phone] Pancho Rodriguez MD RIGHT LEFT HEART CATHETERIZATION WITH CORONARY ANGIOGRAPHY GRAFT AND WITH OR WITHOUT LEFT VENTRICULOGRAPHY [id number] 12/18/2024 10:50 AM CDT - 12/18/2024 4:54 PM CDT Hospital Encounter [facility] Heart Center [address] [place] [phone] Pancho Rodriguez MD Nonrheumatic aortic valve stenosis Discharge Disposition: Discharge to home or self care 12/08/2024 Telephone [facility] Cardiology [address] [place] [address] [address], [place] [address] Andrzej Valentin MD [facility] Scheduling 12/03/2024 Telephone [facility] Cardiology [address] [place] [address] [address], [place] [phone] Malissa, Diana 12/03/2024 11:25 AM CDT Lab [facility] Outpatient Lab [address] [place] [phone] Nonrheumatic aortic valve stenosis 12/03/2024 11:10 AM CDT Lab [facility] Outpatient Lab [address] [place] [phone] Preop testing; Aortic valve stenosis, etiology of cardiac valve disease unspecified; Nonrheumatic aortic valve stenosis 12/03/2024 9:25 AM CDT - 12/03/2024 11:59 PM CDT Hospital Encounter [facility] Cardiac Testing [address] [place] [address] [address] [place] [address] Nonrheumatic aortic valve stenosis Discharge Disposition: Discharge to home or self care 12/03/2024 10:00 AM CDT Office Visit Cardiovascular and Thoracic Surgery [address] [place] [address] [address] [place] [address] Andrzej Valentin MD Preop testing (Primary Dx); Aortic valve stenosis, etiology of cardiac valve disease unspecified 12/03/2024 8:35 AM CDT - 12/03/2024 11:59 PM CDT Hospital Encounter [facility] - Imaging [address] [place] [address] Nonrheumatic aortic valve stenosis Discharge Disposition: Discharge to home or self care 11/24/2024 Results Follow-Up [facility] Medical Group Cardiology [address] [facility] [address] [place] [address] Kim Garcia MD Stress Echo Exercise WO Doppler/CF 11/21/2024 11:08 AM CDT - 11/21/2024 11:59 PM CDT Hospital Encounter [facility] OP Cardiac Testing [address] [facility] [address] [place] [address] Nonrheumatic aortic valve stenosis Discharge Disposition: Discharge to home or self care 11/14/2024 Documentation Cardiovascular and Thoracic Surgery [address] [facility] [address] [place] [address] Rebecca Hogue 11/14/2024 Orders Only Cardiovascular and Thoracic Surgery [address] [place] [address] [address] [place] [phone] Regine Simmons RN Nonrheumatic aortic valve stenosis (Primary Dx) from Last 3 Months Allergies Active Allergy [...] 09/09/2021 Assessment & Plan (09/09/2021 10:34 AM PITTING MACHINE OPERATOR): Aortic stenosis was mild when assessed [...] 08/10/2017 Assessment & Plan (09/09/2021 10:33 AM PITTING MACHINE OPERATOR): Blood pressure is a little on the low side. Will decrease amlodipine from 10 mg daily to 5 mg daily and continue metoprolol 50 mg daily, Altace 10 mg daily, and terazosin 5 mg nightly. He is to monitor his blood pressure at home. Assessment & Plan (09/10/2020 4:10 PM PITTING MACHINE OPERATOR): Blood pressure is adequately controlled on current regimen. No change was made. Assessment & Plan (08/23/2019 10:51 AM PITTING MACHINE OPERATOR): Blood pressure is adequately controlled on current regimen. No change was made. Assessment & Plan (12/13/2018 9:38 AM CDT): Blood pressure is adequately controlled on current regimen. No change was made. Assessment & Plan (09/13/2018 9:34 AM PITTING MACHINE OPERATOR): Blood pressure is adequately controlled on current regimen. No change was made. Assessment & Plan (08/13/2018 6:16 PM PITTING MACHINE OPERATOR): Blood pressure is adequately controlled on current regimen. No change was made. Assessment & Plan (08/09/2018 3:38 PM PITTING MACHINE OPERATOR): Blood pressure is adequately controlled on current regimen. No change was made. Assessment & Plan (08/10/2017 6:35 PM PITTING MACHINE OPERATOR): Not ideally controlled. Increase metoprolol from 25 to 50 mg daily. He is to continue monitoring his heart rate and blood pressure and will let me know if they do not normalize. Dyslipidemia 08/10/2017 Assessment & Plan (09/09/2021 10:33 AM PITTING MACHINE OPERATOR): Point of care lipids today show an LDL of 42. Continue rosuvastatin 40 mg daily. Assessment & Plan (09/10/2020 4:10 PM PITTING MACHINE OPERATOR): On chronic lipid lowering therapy with good control. No changes made. Assessment & Plan (08/23/2019 10:52 AM PITTING MACHINE OPERATOR): On chronic lipid lowering therapy with good control. No changes made. Assessment & Plan (12/13/2018 9:41 AM CDT): On high-intensity statin therapy. Assessment & Plan (09/13/2018 9:34 AM PITTING MACHINE OPERATOR): Continue high-intensity statin therapy. Assessment & Plan (08/09/2018 3:39 PM PITTING MACHINE OPERATOR): Lipids are not controlled. Will increase rosuvastatin to 40 mg daily. Assessment & Plan (08/10/2017 6:36 PM PITTING MACHINE OPERATOR): On chronic lipid-lowering therapy. LDL today is 94. Continue atorvastatin 80 mg daily. Coronary artery disease of n ative artery of [place] heart with stable angina pectoris ([facility]) 06/18/2015 Overview (11/10/2016): Coronary arteriosclerosis in [place] artery Assessment & Plan (09/09/2021 10:34 AM PITTING MACHINE OPERATOR): Asymptomatic following coronary artery bypass grafting. Continue Plavix 75 mg daily and metoprolol 50 mg daily. His follow-up in one year will be with Dr. Garcia. Assessment & Plan (09/10/2020 4:10 PM PITTING MACHINE OPERATOR): Asymptomatic following extensive bypass surgery in 2019. Continue anti-platelet therapy. Assessment & Plan (08/23/2019 10:51 AM PITTING MACHINE OPERATOR): Asymptomatic following recent bypass surgery. Continue clopidogrel. Assessment & Plan (12/13/2018 9:38 AM CDT): No chest discomfort. Electrocardiogram is nonischemic. Continue clopidogrel. Assessment & Plan (09/13/2018 9:35 AM PITTING MACHINE OPERATOR): Recent coronary artery bypass grafting. He remains on clopidogrel. Needs to begin phase two cardiac rehab at [facility]. Also advised of the importance of good control of his diabetes to prevent progression of coronary artery disease. Assessment & Plan (08/13/2018 6:15 PM PITTING MACHINE OPERATOR): Severe three-vessel coronary artery disease, not amenable to coronary intervention. Holding Plavix and monitoring platelet function to determine optimal timing of surgery. Continue heparin and aspirin Assessment & Plan (08/10/2017 6:34 PM PITTING MACHINE OPERATOR): No symptoms of myocardial ischemia. Continue anti-platelet therapy. Resolved Problems Problem Noted Date Diagnosed Date Resolved Date Angina pectoris, unstable 08/09/2018 Overview (08/09/2018): Added automatically from request for surgery [id number] Assessment & Plan (08/09/2018 3:37 PM PITTING MACHINE OPERATOR): New onset exertional angina two months [...] on file Legal Sex Male 9:24 PM PITTING MACHINE OPERATOR Gender Identity Not on file Sexual [...] 01/09/2025 6:25 AM CDT Plan of Treatment Not on file Medical Devices Implanted Type Area Director Of Accounts Payable Device Identifier Shelf Expiration Date Model / Serial / Lot Fatima [employer] Valve Heart 26mm Heather 3 Transcatheter [id number] - [id number] - [id number] Implanted:Qty: 1 on 01/09/2025 by Andrzej Valentin MD at [facility] Prosthetic Valve Right: Aortic Valve Fatima [employer] 07/08/2027 [id number] / [id number] / [employer] Device Vascular Closure Femoral Artery Bioabsorbable Dual Method Vascade 6-7fr Collagen [id number] - S0 - [id number] Implanted:Qty: 1 on 12/18/2024 by Pancho Rodriguez MD at [facility] Vascular Closure Device [employer] 10/28/2026 [id number] / [id number] / [id number] [employer] Device Vascular Closure Celt Acd 5fr Sterile Kclt-05 - S0 - [id number] Implanted:Qty: 1 on 12/18/2024 by Pancho Rodriguez MD at [facility] Vascular Closure Device [employer] 04/30/2027 KCLT- / [id number] Tele[employer] Inc 18f Manta Vascular Closure Device 2114 [id number] Implanted:Qty: 1 on 01/09/2025 by Andrzej Valentin MD at [facility] Vascular Closure Device Right: Common Femoral Artery [employer] 07/10/2025 [id number] / / [id number] [employer] Device Vascular Closure Celt Acd 5fr Sterile Kclt-05 - [id number] Implanted:Qty: 1 on 01/09/2025 by Andrzej Valentin MD at [facility] Vascular Closure Device Right: Aortic Valve [employer] 04/30/2027 KCLT- / [id number] Procedures Procedure Name Priority Date/Time Associated Diagnosis [...] comparison and control in clinical research program [place] AN PROCEDURE PLACEHOLDER Routine 01/09/2025 8:44 AM CDT [place] AN PROCEDURE PLACEHOLDER Routine 01/09/2025 8:44 AM [...] AM CDT Narrative 01/10/2025 10:28 AM CDT [place] [address] [place] [address] ECHOCARDIOGRAM Patient Name: ELSA ENGEL : 1945 (79y 10m) Gender: M Study Date: 01/10/2025 06:47:45 AM Ht(Inch): 74 Wt(Lb): 171.08 BSA: 2.01 Oval Or Circular Glass Cutter: SAGAR Location: [id number] Order Provider: PANCHO RODRIGUEZ BMI: 21.96 BP: [...] Procedure Note Kim Garcia MD - 01/10/2025 [place] [address] [place] [address] ECHOCARDIOGRAM Patient Name: ELSA ENGEL : 1945 (79y 10m) Gender: M Study Date: 01/10/2025 06:47:45 AM Ht(Inch): 74 Wt(Lb): 171.08 BSA: 2.01 Oval Or Circular Glass Cutter: SAGAR Location: [address] Order Provider: PANCHO RODRIGUEZ BMI: 21.96 [...] MD LAB BLOOD ORDERABLES Final Resul t [facility] [address] Department [place] [address] * Differential, auto (01/10/2025 3:07 AM CDT) Neutrophil abs 6.50 1.50 - 6.50 K/cumm Imm gran abs 0.02 0.00 - 0.10 K/cumm [facility] Lymphocyte abs 1.38 0.80 - 3.30 K/cumm [facility] Monocyte abs 0.75 0.20 - 0.80 K/cumm [facility] Eosinophil abs 0.37 0.00 - 0.50 K/cumm [facility] Basophil abs 0.06 0.00 - 0.10 K/cumm [facility] Neutrophil pct 71.5 % [facility] Comment: Interpretive Data Percent cell count reference ranges are not reported, since discordance with absolute values may lead to misinterpretation of CBC data. Current Interpretive Data was last revised on 2017. Imm gran pct 0.2 % [facility] Comment: Interpretive Data Percent cell count reference ranges are not reported, since discordance with absolute values may lead to misinterpretation of CBC data. Current Interpretive Data was last revised on 2017. Lymphocyte pct 15.2 % [facility] Comment: Interpretive Data Percent cell count reference ranges are not reported, since discordance with absolute values may lead to misinterpretation of CBC data. Current Interpretive Data was last revised on 2017. Monocyte pct 8.3 % [facility] Comment: Interpretive Data Percent cell count reference ranges are not reported, since discordance with absolute values may lead to misinterpretation of CBC data. Current Interpretive Data was last revised on 2017. Eosinophil pct 4.1 % [facility] Comment: Interpretive Data Percent cell count reference ranges are not reported, since discordance with absolute values may lead to misinterpretation of CBC data. Current Interpretive Data was last revised on 2017. Basophil pct 0.7 % [facility] Comment: Interpretive Data Percent cell count reference ranges are not reported, since discordance with absolute values may lead to misinterpretation of CBC data. Current Interpretive Data was last revised on 2017. Blood 01/10/2025 3:07 AM CDT 01/10/2025 3:57 AM CDT us Pancho Rodriguez MD LAB BLOOD ORDERABLES Final Resul t [facility] [address] Department [place] [address] * (ABNORMAL) CBC with auto differential (01/10/2025 3:07 AM CDT) [facility] WBC 9.08 3.80 - 9.90 K/cumm Hgb 13.9 13.0 - 17.5 g/dL [facility] Hct 44.1 38.9 - 50.3 % [facility] Plt 240 150 - 400 K/cumm [facility] MPV 9.0(L) 9.1 - 12.3 fL [facility] RBC 5.89(H) 4.30 - 5.80 M/cumm [facility] MCV 74.9(L) 81.3 - 96.4 fL [facility] MCH 23.6(L) 27.1 - 33.3 pg [facility] MCHC 31.5(L) 32.3 - 35.7 g/dL [facility] RDW CV 15.6(H) 11.1 - 14.9 % [facility] RDW SD 41.1 35.7 - 48.1 fL [facility] NRBC abs 0.00 0.00 - 0.01 K/cumm [facility] Blood 01/10/2025 3:07 AM CDT 01/10/2025 3:57 AM CDT us Pancho Rodriguez MD LAB BLOOD ORDERABLES Final Resul t [facility] [address] Department [place] [address] * (ABNORMAL) Basic metabolic panel (01/10/2025 3:07 AM CDT) [facility] Sodium 138 135 - 145 mmol/L Potassium, pl 4.5 3.3 - 4.9 mmol/L [facility] Chloride 101 97 - 110 mmol/L [facility] CO2 19(L) 22 - 32 mmol/L [facility] Anion gap 18(H) 2 - 15 mmol/L [facility] BUN 15 6 - 25 mg/dL [facility] Creatinine 0.99 0.80 - 1.30 mg/dL [facility] Glucose 144 70 - 199 mg/dL [facility] Comment: Interpretive Data Fasting glucose >/= 126 [...] 2022. Calcium 9.3 8.5 - 10.3 mg/dL [facility] Blood 01/10/2025 3:07 AM CDT 01/10/2025 3:57 AM CDT us Pancho Rodriguez MD LAB BLOOD ORDERABLES Final Resul t Performing Organization Address City/[facility]/ZIP Co de Phone Number [facility] [address] Department [place] [address] * ECG 12 lead (01/09/2025 1:19 PM CDT) 01/09/2025 1:19 PM CDT Narrative [facility] - 01/11/2025 1:07 PM CDT Vent Rate: 71 bpm RR Interval: 835 msec [place] Interval: 172 msec QRS Duration: 113 msec QT Interval: 401 msec QTC Interval: 424 msec P-R-T [place]: 51 - -24 - 54 degrees IMPRESSION: SINUS RHYTHM WITH OCCASIONAL ATRIAL PREMATURE AND VENTRICULAR PREMATURE COMPLEXES POSSIBLE LEFT ATRIAL ENLARGEMENT MODERATE INTRAVENTRICULAR CONDUCTION DELAY ABNORMAL ECG Electronically Signed By: Andrzej De La Fuente MD [facility] us Pancho Rodriguez MD ECG ORDERABLES Final Result Performing Organization Address [facility]/ZIP Co de Phone Number [facility] [address] [facility] * POCT glucose (01/09/2025 9:21 AM CDT) Glucose, POC 156 70 - 199 mg/dL Comment: For Glucose values <35 mg/dl when Hematocrit is >60 mg/dl,the test may not accurately detect significant hypoglycemia,and testing in the Laboratory should be considered if clinically indicated. POC Performer [id number] [facility] Blood 01/09/2025 9:21 AM CDT 01/09/2025 9:21 AM CDT us Pancho Rodriguez MD LAB POCT ORDERABLES - DEVICE Fin al Result [facility] [address] [place] [address] * TRANSTHORACIC ECHO (TTE) LIMITED/FOLLOW UP W LTD DOPPLER/CF W CONTRAST (01/09/2025 9:13 AM CDT) Anatomical Region Laterality Modality Ultrasound 01/09/2025 9:06 AM CDT Narrative 01/09/2025 1:55 PM CDT [facility] [address] [address] LIMITED ECHOCARDIOGRAM Patient Name: ELSA ENGEL H : 1945 (79y 10m) Gender: M Study Date: 01/09/2025 09:06:21 AM Ht(Inch): 74 Wt(Lb): 173.06 BSA: 2.02 Oval Or Circular Glass Cutter: JORGE Location: [id number] Order Provider: PANCHO RODRIGUEZ BMI: 22.22 BP: [...] Procedure Note Pancho Rodriguez MD - 01/09/2025 [place] [address] [place] [address] LIMITED ECHOCARDIOGRAM Patient Name: ELSA ENGEL H : 1945 (79y 10m) Gender: M Study Date: 01/09/2025 09:06:21 AM Ht(Inch): 74 Wt(Lb): 173.06 BSA: 2.02 Oval Or Circular Glass Cutter: JORGE Location: [id number] Order Provider: PANCHO RODRIGUEZ BMI: 22.22 BP: [...] Pancho Rodriguez MD 01/09/2025 1:55:00 PM CDT Pancho Rodriguez MD CV ECHO PROCEDURES Final Result * REPLACEMENT AORTIC VALVE - TRANSFEMORAL ENDOVASCULAR APPROACH (01/09/2025 8:55 AM CDT) Anatomical Region Laterality Modality X-Ray Angiograph y Narrative 01/09/2025 8:14 AM CDT Please see OpNote for result. us Andrzej aVlentin MD SURGICAL CASE ORDERS Final Result * TRANSCATHETER AORTIC VALVE REPLACEMENT (TAVR) OPEN FEMORAL ART APPROACH (01/09/2025 8:55 AM CDT) Anatomical Region Laterality Modality X-Ray Angiograph y Narrative 01/09/2025 9:23 AM CDT Images from the original result were not included. [facility] Cardiology [address] [place] [address], [id number], [address] Transcatheter Aortic Valve Replacement Procedure Report 79 y.o. year old male with severe aortic stenosis referred for transcatheter aortic valve replacement Attending physicians: Andrzej Valentin MD, Pancho Rodriguez MD Access:8F Right Femoral Artery and 5F Left Femoral Artery Catheter:AL1 and Pigtail Injection:Ascending Aorta Closure:Celt and Manta Anticoagulation:[id number] Heparin, Clopidogrel, and Aspirin Air Kerma:205 mGy [...] wire. We then advanced a 26 mm Fatima S3 Ultra valve (+2ml). The valve was [...] A/P: Successful implantation of a 26 mm Fatima S3 Ultra valve in aortic position with conscious sedation. Patient will continue aspirin and Plavix for at least 3 months. Plan echocardiogram tomorrow. Further management per the heart team. Pancho Rodriguez MD 01/09/2025 9:21 AM us Pancho Rodriguez MD CV CARDIAC CATH PROCEDURES Final Result * [place] AN PROCEDURE PLACEHOLDER (01/09/2025 8:44 AM CDT) [...] MD ANESTHESIA ORDERABLES Fi nal Result * [place] AN PROCEDURE PLACEHOLDER (01/09/2025 8:44 AM CDT) [...] patient tolerated procedure well with no complications Eladio Lee MD ANESTHESIA ORDERABLES Fi nal Result * (ABNORMAL) POC Activated Clotting Time, High Range (01/09/2025 8:23 AM CDT) ACT 275(H) 87 - 138 sec POC Performer [id number] [facility] Blood 01/09/2025 8:23 AM CDT 01/09/2025 8:23 AM CDT Andrzej Valentin MD LAB BLOOD ORDERABLES Final Result Performing Organization Address [facility] Co de Phone Number [facility] [address] [facility] [place] [address] * POC Activated Clotting Time, High Range (01/09/2025 8:14 AM CDT) ACT 132 87 - 138 sec POC Performer [id number] [facility] Blood 01/09/2025 8:14 AM CDT 01/09/2025 8:14 AM CDT Result [facility] Andrzej Valentin MD LAB BLOOD ORDERABLES Final Result Performing Organization Address [facility] Co de Phone Number [facility] [address] [facility] [place] [address] * POC Blood Gas and Chemistries, Arterial - (01/09/2025 8:14 AM CDT) Glucose, POC 178 70 - 199 mg/dL Blood 01/09/2025 8:14 AM CDT 01/09/2025 8:14 AM CDT Andrzej Valentin MD LAB POCT ORDERABLES - ZHENG CE Final Result Performing Organization Address [facility] Co de Phone Number [facility] [address] [facility] [place] [address] * eGFR (01/09/2025 6:35 AM CDT) eGFR [...] Serrano NP LAB BLOOD ORDERABLES Final Result [facility] [address] Department [place] [address] * (ABNORMAL) Differential, auto (01/09/2025 6:35 AM CDT) Pathologist [facility] Neutrophil abs 4.72 1.50 - 6.50 K/cumm Imm gran abs 0.01 0.00 - 0.10 K/cumm [facility] Lymphocyte abs 1.31 0.80 - 3.30 K/cumm [facility] Monocyte abs 0.46 0.20 - 0.80 K/cumm [facility] Eosinophil abs 0.54(H) 0.00 - 0.50 K/cumm [facility] Basophil abs 0.07 0.00 - 0.10 K/cumm [facility] Neutrophil pct 66.4 % [facility] Comment: Interpretive Data Percent cell count reference ranges are not reported, since discordance with absolute values may lead to misinterpretation of CBC data. Current Interpretive Data was last revised on 2017. Imm gran pct 0.1 % [facility] Comment: Interpretive Data Percent cell count reference ranges are not reported, since discordance with absolute values may lead to misinterpretation of CBC data. Current Interpretive Data was last revised on 2017. Lymphocyte pct 18.4 % [facility] Comment: Interpretive Data Percent cell count reference ranges are not reported, since discordance with absolute values may lead to misinterpretation of CBC data. Current Interpretive Data was last revised on 2017. Monocyte pct 6.5 % [facility] Comment: Interpretive Data Percent cell count reference ranges are not reported, since discordance with absolute values may lead to misinterpretation of CBC data. Current Interpretive Data was last revised on 2017. Eosinophil pct 7.6 % [facility] Comment: Interpretive Data Percent cell count reference ranges are not reported, since discordance with absolute values may lead to misinterpretation of CBC data. Current Interpretive Data was last revised on 2017. Basophil pct 1.0 % [facility] Comment: Interpretive Data Percent cell count reference ranges are not reported, since discordance with absolute values may lead to misinterpretation of CBC data. Current Interpretive Data was last revised on 2017. Blood 01/09/2025 6:35 AM CDT 01/09/2025 6:52 AM CDT Aline Serrano HISTORICAL INTERPRETER LAB BLOOD ORDERABLES Final Result [facility] [address] [place] [address] * Pro B-type natriuretic peptide (01/09/2025 6:35 [...] Serrano NP LAB BLOOD ORDERABLES Final Result [facility] [address] Department of Laboratories [place], [place] [id number] * (ABNORMAL) CBC with auto differential (01/09/2025 6:35 AM CDT) WBC 7.11 3.80 - 9.90 K/cumm Hgb 13.7 13.0 - 17.5 g/dL [facility] Hct 44.4 38.9 - 50.3 % [facility] Plt 246 150 - 400 K/cumm [facility] MPV 9.0(L) 9.1 - 12.3 fL [facility] RBC 5.85(H) 4.30 - 5.80 M/cumm [facility] MCV 75.9(L) 81.3 - 96.4 fL [facility] MCH 23.4(L) 27.1 - 33.3 pg [facility] MCHC 30.9(L) 32.3 - 35.7 g/dL [facility] RDW CV 15.4(H) 11.1 - 14.9 % [facility] RDW SD 41.7 35.7 - 48.1 fL [facility] NRBC abs 0.00 0.00 - 0.01 K/cumm [facility] Blood 01/09/2025 6:35 AM CDT 01/09/2025 6:52 AM CDT Aline Serrano HISTORICAL INTERPRETER LAB BLOOD ORDERABLES Final Result Performing Organization Address [facility]/ZIP Co de Phone Number [facility] [address] [place] [address] * Type and screen (01/09/2025 6:35 AM CDT) ABO Rh A Negative Eliezer, indirect Negative [facility] Blood 01/09/2025 6:35 AM CDT 01/09/2025 6:49 AM CDT Narrative [facility] - 01/09/2025 7:35 AM CDT No blood transfusions x 90 days. Set up 2 Units PRBC for day of surgery 01/09/2025 Has the patient had Daratumumab or Isatuximab in the past 6 months?->Unknown Aline Serrano NP LAB BLOOD BANK TEST ORDERA BLES Final Result Performing Organization Address City/[facility]/ZIP Co de Phone Number [facility] [address] [facility] [email or web address] [address] * (ABNORMAL) Basic metabolic panel (01/09/2025 6:35 AM CDT) Sodium 137 135 - 145 mmol/L Potassium, pl 5.0(H) 3.3 - 4.9 mmol/L [facility] Chloride 100 97 - 110 mmol/L [facility] CO2 25 22 - 32 mmol/L [facility] Anion gap 12 2 - 15 mmol/L [facility] BUN 17 6 - 25 mg/dL [facility] Creatinine 1.16 0.80 - 1.30 mg/dL [facility] Glucose 277(H) 70 - 199 mg/dL [facility] Comment: Interpretive Data Fasting glucose >/= 126 [...] 2022. Calcium 9.8 8.5 - 10.3 mg/dL [facility] Blood 01/09/2025 6:35 AM CDT 01/09/2025 6:52 AM CDT Aline Serrano NP LAB BLOOD ORDERABLES Final Result [facility] [address] Department of Laboratories [place], [place] [id number] * Prepare RBC: 2 Units (01/09/2025 6:16 AM CDT) Product code [id number] Unit Number [id number] 2-X [facility] Product Blood Type ANEG [facility] Dispense Status RETURNED [facility] Product code [id number] [facility] Unit Number [id number] 9-M [facility] Product Blood Type ANEG [facility] Dispense Status RETURNED [facility] Blood 01/09/2025 6:16 AM CDT Narrative [facility] - 01/12/2025 4:00 PM CDT Specify Procedure:->TAVR Are special requirements needed? (All products are leukoreduced and CMV- safe)- >No Date required:-[id number] [facility] # of [id number] Reasons:-Hold for procedure (specify procedure)} us Aline Janel Serrano NP BLOOD BANK PRODUCT ORDERAB LES Final Result [facility] [address] Department [place] [address] * CT chest without contrast (01/02/2025 7:58 [...] months. Electronically signed by: Christiano Chakraborty M.D. us Aline Serrano NP IMG CT PROCEDURES Final Re sult * RIGHT LEFT HEART CATHETERIZATION CORONARY GRAFT WITH WITHOUT LEFT VENTRICULOGRAPHY ANGIOGRAM (12/18/2024 1:10 PM CDT) Anatomical Region Laterality Modality X-Ray Angiograph y Narrative 12/18/2024 1:28 PM CDT Images from the original result were not included. [facility] Cardiology [facility], [id number], [address] Right and Left Heart Catheterization Procedure Report 79 y.o. year old male with coronary artery disease status post CABG now with aortic stenosis referred for right and left heart catheterization. Attending Physician: Pancho Rodriguez MD Access:5F Right Femoral Artery and 7F Right Femoral Vein Catheter:SARAH, FL4, FR4, and [place] Injection:Left Main Trunk, Right Coronary Artery, SVG, [...] then performed Right Heart Catheterization using the [place] catheter, measuring [place] cardiac outputs. We then [...] TAVR Pancho Rodriguez MD 12/18/2024 1:10 PM us Andrzej Valentin MD CV CARDIAC CATH PROCEDURES Final Result * POCT glucose (12/18/2024 12:14 PM CDT) [facility] Glucose, POC 168 70 - 199 mg/dL Comment: For Glucose values <35 mg/dl when Hematocrit is >60 mg/dl,the test may not accurately detect significant hypoglycemia,and testing in the Laboratory should be considered if clinically indicated. POC Performer [id number] [facility] Blood 12/18/2024 12:1 4 PM CDT 12/18/2024 12:14 PM CDT us Pancho Rodriguez MD LAB POCT ORDERABLES - DEVICE Fin al Result Performing Organization Address City/[facility]/ZIP Co de Phone Number [facility] [address] [facility] [place], [place] [id number] * eGFR (12/03/2024 11:20 AM CDT) eGFR [...] 12/03/2024 11:39 AM CDT us Aline Serrano HISTORICAL INTERPRETER LAB BLOOD ORDERABLES Final Result Performing Organization Address City/[facility]/ZIP Co de Phone Number [facility] [address] Department of [employer] [place], [place] [id number] * Differential, auto (12/03/2024 11:20 AM CDT) Neutrophil abs 4.93 1.50 - 6.50 K/cumm Imm gran abs 0.02 0.00 - 0.10 K/cumm [facility] Lymphocyte abs 1.67 0.80 - 3.30 K/cumm [facility] Monocyte abs 0.44 0.20 - 0.80 K/cumm [facility] Eosinophil abs 0.25 0.00 - 0.50 K/cumm [facility] Basophil abs 0.06 0.00 - 0.10 K/cumm [facility] Neutrophil pct 66.8 % [facility] Comment: Interpretive Data Percent cell count reference ranges are not reported, since discordance with absolute values may lead to misinterpretation of CBC data. Current Interpretive Data was last revised on 2017. Imm gran pct 0.3 % [facility] Comment: Interpretive Data Percent cell count reference ranges are not reported, since discordance with absolute values may lead to misinterpretation of CBC data. Current Interpretive Data was last revised on 2017. Lymphocyte pct 22.7 % [facility] Comment: Interpretive Data Percent cell count reference ranges are not reported, since discordance with absolute values may lead to misinterpretation of CBC data. Current Interpretive Data was last revised on 2017. Monocyte pct 6.0 % [facility] Comment: Interpretive Data Percent cell count reference ranges are not reported, since discordance with absolute values may lead to misinterpretation of CBC data. Current Interpretive Data was last revised on 2017. Eosinophil pct 3.4 % [facility] Comment: Interpretive Data Percent cell count reference ranges are not reported, since discordance with absolute values may lead to misinterpretation of CBC data. Current Interpretive Data was last revised on 2017. Basophil pct 0.8 % [facility] Comment: Interpretive Data Percent cell count reference ranges are not reported, since discordance with absolute values may lead to misinterpretation of CBC data. Current Interpretive Data was last revised on 2017. Blood 12/03/2024 11:2 0 AM CDT 12/03/2024 11:39 AM CDT Aline Serrano NP LAB BLOOD ORDERABLES Final Result [facility] [address] [place] [address] * Pro B-type natriuretic peptide (12/03/2024 11:20 [...] 0 AM CDT 12/03/2024 11:39 AM CDT Kim Garcia MD LAB BLOOD ORDERABLES Final Result Performing Organization Address [facility] Co de Phone Number [facility] [address] Department [email or web address] [address] * (ABNORMAL) CBC with auto differential (12/03/2024 11:20 AM CDT) Pathologist [facility] WBC 7.37 3.80 - 9.90 K/cumm Hgb 14.9 13.0 - 17.5 g/dL [facility] Hct 47.9 38.9 - 50.3 % [facility] Plt 256 150 - 400 K/cumm [facility] MPV 9.2 9.1 - 12.3 fL [facility] RBC 6.29(H) 4.30 - 5.80 M/cumm [facility] MCV 76.2(L) 81.3 - 96.4 fL [facility] MCH 23.7(L) 27.1 - 33.3 pg [facility] MCHC 31.1(L) 32.3 - 35.7 g/dL [facility] RDW CV 15.5(H) 11.1 - 14.9 % [facility] RDW SD 40.3 35.7 - 48.1 fL [facility] NRBC abs 0.00 0.00 - 0.01 K/cumm [facility] Blood 12/03/2024 11:2 0 AM CDT 12/03/2024 11:39 AM CDT Aline Serrano NP LAB BLOOD ORDERABLES Final Result [facility] [address] Department [place] [address] * Type and screen (12/03/2024 11:20 AM CDT) Pathologist [facility] ABO Rh A Negative Eliezer, indirect Negative [facility] Blood 12/03/2024 11:2 0 AM CDT 12/03/2024 11:51 AM CDT Narrative [facility] - 12/03/2024 12:27 PM CDT No blood transfusions in the last 90 days. Pt will need 2 units of PRBC's set up for surgery TBD Has the patient had Daratumumab or Isatuximab in the past 6 months?->Unknown Aline Serrano NP LAB BLOOD BANK TEST ORDERA BLES Final Result [facility] [address] [place] [address] * (ABNORMAL) Basic metabolic panel (12/03/2024 11:20 AM CDT) Sodium 135 135 - 145 mmol/L Potassium, pl 4.6 3.3 - 4.9 mmol/L [facility] Chloride 99 97 - 110 mmol/L [facility] CO2 23 22 - 32 mmol/L [facility] Anion gap 13 2 - 15 mmol/L [facility] BUN 14 6 - 25 mg/dL [facility] Creatinine 1.03 0.80 - 1.30 mg/dL [facility] Glucose 246(H) 70 - 199 mg/dL [facility] Comment: Interpretive Data Fasting glucose >/= 126 [...] 2022. Calcium 9.5 8.5 - 10.3 mg/dL [facility] Blood 12/03/2024 11:2 0 AM CDT 12/03/2024 11:39 AM CDT Aline Serrano HISTORICAL INTERPRETER LAB BLOOD ORDERABLES Final Result Performing Organization Address [facility]/ZIP Co de Phone Number [facility] [address] [place] [address] * ECG 12 lead (12/03/2024 9:36 AM CDT) 12/03/2024 9:31 AM CDT Narrative [facility] - 12/03/2024 2:15 PM CDT Vent Rate: 76 bpm RR Interval: 784 msec [place] Interval: 129 msec QRS Duration: 121 msec QT Interval: 383 msec QTC Interval: 413 msec P-R-T Leland: 116 - -8 - 127 degrees IMPRESSION: SINUS RHYTHM WITH SINUS ARRHYTHMIA POSSIBLE LEFT ATRIAL ENLARGEMENT [-0.1mV P WAVE IN V1/V2] MODERATE INTRAVENTRICULAR CONDUCTION DELAY [105+ ms QRS DURATION, 80+ ms Q/S IN V1/V2, NO Q AND 60+ ms R IN I/aVL/V5/V6] ABNORMAL QRS-T ANGLE [QRS-T AXIS DIFFERENCE > 60] ABNORMAL ECG Electronically Signed By: Rubin Swift MD, [facility] us Aline Serrano NP ECG ORDERABLES Final Resu lt [facility] * CT TAVR (12/03/2024 9:11 [...] from annulus: 18 mm Deployment angle: 12 SRI LANKAN, 9 cranial Coronary Arteries: Severe three-vessel coronary [...] from annulus: 18 mm Deployment angle: 12 SRI LANKAN, 9 cranial Coronary Arteries: Severe three-vessel coronary [...] it. Electronically signed by: Michelle Clement M.D. us Aline Serrano NP IMG CT PROCEDURES Final Re sult * STRESS ECHO EXERCISE WO DOPPLER/CF W CONTRAST (11/21/2024 12:07 PM CDT) Anatomical Region Laterality Modality Ultrasound 11/21/2024 11:1 0 AM CDT Narrative 11/22/2024 2:05 PM CDT [facility] [address] [place] [address] STRESS ECHOCARDIOGRAM Patient Name: ELSA ENGEL : 1945 (79y 8m) Gender: M Study Date: 11/21/2024 11:10:44 AM Ht(Inch): 74 Wt(Lb): 180.01 BSA: 2.06 Oval Or Circular Glass Cutter: KEVON Order Provider: KIM GARCIA Heart Rate: [...] BP: 122/56 METS achieved: 4.8 Rate-Pressure Product: 85986 BPM*mmHg Angina Index (0=No angina during exercise, [...] Procedure Note Kim Garcia MD - 11/22/2024 [facility] [address] [place] [id number] STRESS ECHOCARDIOGRAM Patient Name: ELSA ENGEL : 1945 (79y 8m) Gender: M Study Date: 11/21/2024 11:10:44 AM Ht(Inch): 74 Wt(Lb): 180.01 BSA: 2.06 Oval Or Circular Glass Cutter: KEVON Order Provider: KIM GARCIA Heart Rate: [...] BP: 122/56 METS achieved: 4.8 Rate-Pressure Product: 44296 BPM*mmHg Angina Index (0=No angina during exercise, [...] POCT lipid panel (10/22/2024 1:06 PM CDT) Pathologist [facility] Cholesterol, POC 100 mg/dL HDL, POC 26 mg/dL Triglycerides, POC 143 mg/dL LDL Cholesterol POC 45.4 mg/dL Capillary blood 10/22/2024 1 :06 PM CDT Kim Garcia MD POINT OF CARE TEST ORDERAB LES Final Result * (ABNORMAL) Hemoglobin A1c (11/28/2018 10:07 AM CDT) Pathologist [facility] Hgb A1C 7.7(H) <5.7 % of total Hgb [facility] [place] Comment: For someone without [...] Performing Organization Information: Site ID: [id number] Name: [facility] Address: [address] [address] Director: Andi Espinoza D.O., MPH us Kim Shah MD LAB BLOOD ORDERABLES Silva juan Result [facility] [place] from Last 3 Months or Most Recently Relevant to Health Maintenance Insurance MEDICARE [facility] Address: [facility] [address] [place] [address] [facility] MEDICARE ADVANTAGE [facility] MEDICARE ADVANTAGE Advance Directives For more information, please contact: [phone] Documents on File Type Date Recorded Patient Solvent Recoverer Expl anation ADVANCE DIRECTIVE 08/15/2018 12:49 PM ADVANCE DIRECTIVE 08/15/2018 12:49 PM * Full Code (Latest Code Status on File) Date Activated Date Inactivated Comments 01/09/2025 6:15 AM 01/10/2025 5:49 PM * Full Code Date Activated Date Inactivated Comments 08/12/2018 10:04 AM 08/20/2018 4:46 PM Care Teams Orientation And Mobility Specialist Relationship Specialty Start Date End Date Kim Shah MD PCP - General 06/09/13 Kim Garcia MD Consulting Physician Cardiology 09/04/22 Kim Garcia MD [address] [facility] [address] [place] [address] Referring Physician Cardiology 11/14/24 Pancho Rodriguez MD [address] [facility] [address] [place] [address] Consulting Physician Cardiology 01/09/25
[2025-02-13 12:09] LABS: Alanine Aminotransferase 29 U/L (6-50); Albumin Level 4.3 g/dL (3.5-5.1); Alkaline Phosphatase 85 U/L (38-126); Anion Gap 13 mmol/L (4-12); Aspartate Amino Transferase 57 U/L (17-59); Bilirubin,Total 0.6 mg/dL (0.2-1.3); Blood Urea Nitrogen 19 mg/dL (9-20); Calcium 9.7 mg/dL (8.4-10.2); Carbon Dioxide 23 mmol/L (22-30); Chloride 98 mmol/L (98-107); Cholesterol 123 mg/dL (0-200); Estimated Glomerular Filt Rate > 60; Glucose 320 mg/dL (65-110); HDL Direct 34 mg/dL; Potassium 4.8 mmol/L (3.4-5.0); Sodium 134 mmol/L (137-145); Total Protein 7.5 g/dL (6.3-8.2); Triglycerides 284 mg/dL (<150)
[2025-02-13 12:48] LABS: MALB Creatinine Ratio 51.1 mg/g (0-30)
[2025-02-13 13:05] LABS: Hemoglobin A1C 13.3 % (<5.7)
== END 2025-02-13 09:22 | disposition home or self-care (01) ==
PROVIDERS: PCP Family Medicine; Visit Provider Family Medicine
DX: E11.9 Type 2 diabetes mellitus without complications (principal)
CPT/HCPCS: 36415; 80053; 80061; 82043; 83036

== ENCOUNTER 2025-04-21 09:41 | Outpatient (CLI) | payer MEDICARE, SELFPAY ==
[2025-04-21 09:53] LABS: Hematocrit 46.8 % (42.0-52.0); Hemoglobin 14.9 g/dL (14.0-18.0); Immature Granulocyte Percent A 0.3 % (0-0.5); Lymphocytes Absolute Auto 1.79 K/mm3 (0.9-3.2); Mean Corpuscular HGB Conc 31.8 g/dl (32-36); Mean Corpuscular Hemoglobin 23.4 pg (26-34); Mean Corpuscular Volume 73.5 fl (80-100); Nucleated Red Blood Cells Absolute Auto 0.000 K/mm3 (0.0-0.012); Nucleated Red Blood Cells Perc 0.0 % (0.0-0.2); Platelet Count Result 233 k/mm3 (150-375); Red Blood Count 6.37 M/mm3 (4.6-6.20); White Blood Count 7.5 K/mm3 (4.5-10.0)
[2025-04-21 09:57] LABS: Blood Urea Nitrogen 15 mg/dL (8-26); Carbon Dioxide 26 mmol/L (22-30); Chloride 100 mmol/L (98-109); Estimated Glomerular Filt Rate > 60; Glucose 242 mg/dL (70-105); Ionized Calcium (POC) 1.21 mmol/L (1.11-1.31); Potassium 4.4 mmol/L (3.5-4.9); Sodium 136 mmol/L (138-146)
--- OUTSIDE RECORDS SUMMARY | 2025-04-21 10:00 | XMS_ITS | Encounter Summary ---
Author Organization [facility] Address [address] [place] [address] Care Team Providers Care Family Worker Name Role Phone Isidro Shah MD Primary Care Provider [phone]- [phone] Reason for Visit * Reason Comments Follow Up Encounter Details Date Type Department Care Team (Late st Contact Info) Description 04/21/2025 10:00 AM CDT Office Visit [facility]3] Oncology and Hematology - [place] [address] [place] [address] [facility] [address] [place] [address] Clemente Childs MD [address] [facility] [address] [place] [address] Iron deficiency anemia due to chronic blood loss (Primary Dx) Social History Tobacco Use Types Packs/Day Years Used Date Smoking Tobacco: Never Smokeless Tobacco: Never Tobacco Cessation:Counseling Given: Not Answered Alcohol Use Standard Drinks/Week Comments Not Currently 0 (1 standard drink = 0.6 oz pur e alcohol) Sex and Gender Information Value Date Recorded Sex Assigned at Not on file Legal Sex Male 1:59 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 Gender Identity Not on file Sexual Orientation Not on file documented as of this encounter Last Filed Vital Signs Vital Sign Reading Time Taken Comments Blood Pressure 107/65 04/21/2025 10:01 AM CDT Pulse 92 04/21/2025 10:01 AM CDT Temperature 36.1 C (96.9 F) 04/21/2025 10:01 AM CDT Respiratory Rate 15 04/21/2025 10:01 AM CDT Oxygen Saturation 93% 04/21/2025 10:01 AM CDT Inhaled Oxygen Concentration - - Weight 73.5 kg (162 lb) 04/21/2025 10:01 AM CDT Height - - Body Mass Index 20.8 04/11/2022 11:41 AM CDT documented in this encounter Progress Notes * Clemente Childs MD - 04/21/2025 10:09 AM CDT HEMATOLOGY / ONCOLOGY PROGRESS NOTE Patient Identification: Name: Bhanu Delgado Age: 80 y.o. 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 Capsule enteroscopy done on September 26, 2019. SUBJECTIVE Patient came to the office for follow-up visit. He has lost 12 pound weight since that aortic valvereplacement done in January 2025. He denies any bleeding and bruising. Denies any chest pain shortnessof breath. No other new complaints. Review of system Constitutional: denies fevers, sweats, 12 pounds weight loss without any tiredness and fatigue HEENT: denies sinus congestion, hearing or vision problems Respiratory: denies cough, dyspnea, wheeze Cardiovascular: denies chest pain, exertional chest pressure/discomfort, nausea, syncope, shortnessof breath GI: denies constipation, diarrhea, dsyphagia, reflux symptoms, vomiting, melena : denies dysuria, frequency, incontinence, urgency Integumentary system: no lymphadenopathy, sweats, flushing Musculoskeletal: denies: myalgia, arthralgia Neurological: denies blurry or disturbed vision, numbness/weakness, dizziness Skin: No lumps, bumps or rashes. 12 point review of system was reviewed Objective: Vital signs in last 24 hours: As per nursing note Exam: General appearance: alert, cooperative, no distress, appears stated age Head: normocephalic, without obvious abnormality, atraumatic Eyes: conjunctivae/corneas clear, EOM's intact Ears: normal external ear canals AU Nose: Nares normal. Septum midline. Mucosa normal. No drainage or sinus tenderness Throat: Lips, mucosa, and tongue normal. Teeth and gums normal Neck: supple, symmetrical, trachea midline. Lungs: clear to auscultation bilaterally Heart: regular rate and rhythm, S1, S2 normal, no murmur, click, rub or gallop Abdomen: soft, non-tender. Bowel sounds normal. No masses, No organomegaly Extremities: extremities normal, atraumatic, no cyanosis or edema Skin: Skin color, texture, turgor normal. No rashes or lesions Lymph nodes: No lymphadenopathy Neuro: No obvious focal deficit Exam as above PATH LAB[facility] Labs from August 14, 2019 showed iron 33 iron saturation 8% ferritin 37 WBC 6.5 hemoglobin 11.1 MCV68 platelet 332,000 Labs from October 05 showed WBC 7.1 hemoglobin 15.3 hematocrit 49.8 MCV 78.4 platelet 256,000 neutrophils 63% iron 39 iron saturation 11% ferritin 28 Labs from October 09 showed WBC 7.1 hemoglobin 15.3 MCV 76.5 platelet 257,000 Noah 2 mutation not detected Labs from February 18 showed ferritin 53 iron 70 iron saturation 20% hemoglobin 16.8 with hematocrit 51.7. Labs from May 17, 2020 showed iron 140 iron saturation 40% hemoglobin 16.2 hematocrit 49.9. Labs from November showed WBC 8.5 hemoglobin 17.9 hematocrit 53.4 platelet 216,000 eosinophil 1100. 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 He denies any history of COPD and sleep apnea. He will noted. Patient had AVR done on January 2025. He has lost 12 pound weight. He denies any bleeding. Labs showed stable hemoglobin and hematocrit. No need for phlebotomy. He will continue Plavix. Follow-up on yearly basis. Renal insufficiency. Creatinine now came to normal at 1.1. Continue with adequate hydration. Iron deficiency anemia. Resolved. Follow up in 1 year 04/21/2025 Clemente Childs MD documented in this encounter Plan of Treatment Upcoming Encounters Date Type Department Care Team (Late st Contact Info) Description 03/30/2026 11:15 AM CDT Office Visit [facility]3] Oncology and Hematology - [place] [address] [facility] [address] [place] [address] Clemente Childs MD [address] [facility] [address] [place] [address] Scheduled Orders Name Type Priority Associated Diagnoses Orde r Schedule CBC WITH DIFFERENTIAL Lab Stat Iron deficiency anemia due to chronic blood loss Expected: 04/21/2026, Expires: 07/20/2026 BASIC METABOLIC PANEL Lab Stat Iron deficiency anemia due to chronic blood loss Expected: 04/21/2026, Expires: 07/20/2026 documented as of this encounter Visit Diagnoses Diagnosis Iron deficiency anemia due to chronic blood loss- Primary Iron deficiency anemia secondary to blood loss (chronic) documented in this encounter Care Teams Family Worker Relationship Specialty Start Date End Date Isidro Shah MD PCP - General Family Practice 07/24/19 documented as of this encounter
--- OUTSIDE RECORDS SUMMARY | 2025-04-21 11:05 | XMS_ITS | Clinical Summary ---
Author Organization [facility] D Address [address] [place] [address] Care Team Providers Care Disk Grinder Name Role Phone Isidro Shah MD Primary Care Provider [phone] Isidro Anthony MD Unavailable [phone] Isidro Anthony MD Unavailable [phone] Pancho Rodriguez MD Unavailable Allergies Active Allergy [...] mg total) by mouth daily 5 Active amLODIPine (NORVASC) 5 mg tablet TAKE 1 TABLET(5 MG) BY MOUTH DAILY 90 tablet 3 5 Active amoxicillin (AMOXIL) 500 mg tablet/capsule Take 4 capsules one hour prior to dental procedures 4 tablet/capsu le 4 5 Active aspirin 81 mg enteric coated tablet Take 1 tablet (81 mg total) by mouth daily 90 tablet 5 Active Active Problems Problem Noted Date Diagnosed Date Aortic stenosis, severe 01/09/2025 S/P TAVR (transcatheter aortic valve replacement ) 01/09/2025 Encounter for examination fo r normal comparison and control in clinical research program 12/24/2024 Nonrheumatic aortic valve stenosis 09/09/2021 Assessment & Plan (09/09/2021 10:34 AM PHOTOGRAPHER'S MODEL): Aortic stenosis was mild when assessed in [...] 08/10/2017 Assessment & Plan (09/09/2021 10:33 AM PHOTOGRAPHER'S MODEL): Blood pressure is a little on the low side. Will decrease amlodipine from 10 mg daily to 5 mg daily and continue metoprolol 50 mg daily, Altace 10 mg daily, and terazosin 5 mg nightly. He is to monitor his blood pressure at home. Assessment & Plan (09/10/2020 4:10 PM PHOTOGRAPHER'S MODEL): Blood pressure is adequately controlled on current regimen. No change was made. Assessment & Plan (08/23/2019 10:51 AM PHOTOGRAPHER'S MODEL): Blood pressure is adequately controlled on current regimen. No change was made. Assessment & Plan (12/13/2018 9:38 AM CDT): Blood pressure is adequately controlled on current regimen. No change was made. Assessment & Plan (09/13/2018 9:34 AM PHOTOGRAPHER'S MODEL): Blood pressure is adequately controlled on current regimen. No change was made. Assessment & Plan (08/13/2018 6:16 PM PHOTOGRAPHER'S MODEL): Blood pressure is adequately controlled on current regimen. No change was made. Assessment & Plan (08/09/2018 3:38 PM PHOTOGRAPHER'S MODEL): Blood pressure is adequately controlled on current regimen. No change was made. Assessment & Plan (08/10/2017 6:35 PM PHOTOGRAPHER'S MODEL): Not ideally controlled. Increase metoprolol from 25 to 50 mg daily. He is to continue monitoring his heart rate and blood pressure and will let me know if they do not normalize. Dyslipidemia 08/10/2017 Assessment & Plan (09/09/2021 10:33 AM PHOTOGRAPHER'S MODEL): Point of care lipids today show an LDL of 42. Continue rosuvastatin 40 mg daily. Assessment & Plan (09/10/2020 4:10 PM PHOTOGRAPHER'S MODEL): On chronic lipid lowering therapy with good control. No changes made. Assessment & Plan (08/23/2019 10:52 AM PHOTOGRAPHER'S MODEL): On chronic lipid lowering therapy with good control. No changes made. Assessment & Plan (12/13/2018 9:41 AM CDT): On high-intensity statin therapy. Assessment & Plan (09/13/2018 9:34 AM PHOTOGRAPHER'S MODEL): Continue high-intensity statin therapy. Assessment & Plan (08/09/2018 3:39 PM PHOTOGRAPHER'S MODEL): Lipids are not controlled. Will increase rosuvastatin to 40 mg daily. Assessment & Plan (08/10/2017 6:36 PM PHOTOGRAPHER'S MODEL): On chronic lipid-lowering therapy. LDL today is 94. Continue atorvastatin 80 mg daily. Coronary artery disease of n ative artery of [place] heart with stable angina pectoris ([facility]) 06/18/2015 Overview (11/10/2016): Coronary arteriosclerosis in [place] artery Assessment & Plan (09/09/2021 10:34 AM PHOTOGRAPHER'S MODEL): Asymptomatic following coronary artery bypass grafting. Continue Plavix 75 mg daily and metoprolol 50 mg daily. His follow-up in one year will be with Dr. Anthony. Assessment & Plan (09/10/2020 4:10 PM PHOTOGRAPHER'S MODEL): Asymptomatic following extensive bypass surgery in 2019. Continue anti-platelet therapy. Assessment & Plan (08/23/2019 10:51 AM PHOTOGRAPHER'S MODEL): Asymptomatic following recent bypass surgery. Continue clopidogrel. Assessment & Plan (12/13/2018 9:38 AM CDT): No chest discomfort. Electrocardiogram is nonischemic. Continue clopidogrel. Assessment & Plan (09/13/2018 9:35 AM PHOTOGRAPHER'S MODEL): Recent coronary artery bypass grafting. He remains on clopidogrel. Needs to begin phase two cardiac rehab at [facility]. Also advised of the importance of good control of his diabetes to prevent progression of coronary artery disease. Assessment & Plan (08/13/2018 6:15 PM PHOTOGRAPHER'S MODEL): Severe three-vessel coronary artery disease, not amenable to coronary intervention. Holding Plavix and monitoring platelet function to determine optimal timing of surgery. Continue heparin and aspirin Assessment & Plan (08/10/2017 6:34 PM PHOTOGRAPHER'S MODEL): No symptoms of myocardial ischemia. Continue anti-platelet therapy. Resolved Problems Problem Noted Date Diagnosed Date Resolved Date Angina pectoris, unstable 08/09/2018 Overview (08/09/2018): Added automatically from request for surgery [id number] Assessment & Plan (08/09/2018 3:37 PM PHOTOGRAPHER'S MODEL): New onset exertional angina two months ago, [...] Encounters Date Type Department Care Team Description 03/10/2025 Results Follow-Up [facility] [place] [address] Pancho Rodriguez MD Transthoracic Echo (TTE) Complete W Doppler/CF 03/09/2025 2:00 PM CDT Office Visit [facility] Cardiology [address] [place] [address] Lucia Parra NP Nonrheumatic aortic valve stenosis (Primary Dx); S/P TAVR (transcatheter aortic valve replacement); Coronary artery disease involving [place] coronary artery of [place] heart without angina pectoris; Essential hypertension 03/09/2025 12:11 PM CDT - 03/09/2025 11:59 PM CDT Hospital Encounter [facility] Cardiac Testing [address] [place] [address] Nonrheumatic aortic valve stenosis Discharge Disposition: Discharge [...] GRAFT AND WITH OR WITHOUT LEFT VENTRICULOGRAPHY [id number]; Surgeon: Pancho Rodriguez MD; Location: [facility] CARDIAC SPANISH INTERPRETER/TRANSLATOR; Service: Cardiovascular; Laterality: N/A; Medical devices from this surgery are in the Medical Devices section. TRANSCATHETER AORTIC VALVE REPLACEMENT 01/09/2025 REPLACEMENT AORTIC VALVE - TRANSFEMORAL ENDOVASCULAR APPROACH 01/09/2025 Chest/N/A Procedure: REPLACEMENT AORTIC VALVE - TRANSFEMORAL ENDOVASCULAR APPROACH; Surgeon: Andrzej Valentin MD; Location: [facility] OPERATING ROOM; Service: Cardiothoracic; Laterality: N/A; 205 mGy 32.41 5.6 min Medical devices from this surgery are in the Medical Devices section. CARDIAC CATHETERIZATION 01/09/2025 Chest/N/A Procedure: TAVR - PERCUTANEOUS FEMORAL [id number]; Surgeon: Pancho Rodriguez MD; Location: [facility] OPERATING ROOM; Service: Cardiovascular; Laterality: N/A; Medical [...] on file Legal Sex Male 9:24 PM PHOTOGRAPHER'S MODEL Gender Identity Not on file Sexual Orientation Not on file Obstetrics History Last Filed Vital Signs Vital Sign Reading Time Taken Comments Blood Pressure 130/70 03/09/2025 1:16 PM CDT Pulse 78 03/09/2025 1:16 PM CDT Temperature 37.4 C (99.4 F) 01/10/2025 12:39 PM CDT Respiratory Rate 20 01/10/2025 12:39 PM CDT Oxygen Saturation 97% 03/09/2025 1:16 PM CDT Inhaled Oxygen Concentration - - Weight 75.3 kg (166 lb) 03/09/2025 1:16 PM CDT Height 188 cm (6' 2) 03/09/2025 1:16 PM CDT Body Mass Index 21.31 03/09/2025 1:16 PM CDT Plan of Treatment Health Maintenance Due Date Last Done Comments Albumin Creatinine Ratio, Urine 1945 Depression Screening 1945 Hepatitis C Screening 1945 Dilated Eye Exam 1945 Foot Exam 1945 DTaP/Tdap/Td Vaccine (1 - Tdap) 1957 Hepatitis B Screening 02/23/1964 Pneumococcal vaccine 65+ (1 of 2 - PCV) 1965 Well Visit 65+ 2011 Hemoglobin A1C 05/30/2019 11/28/2018, 08/13/2018 Covid-19 Vaccine (4 - 2024-2 6 season) 2025 07/12/2021, 10/29/2020, 10/04/2020 Influenza Vaccine (#1) 2025 05/24/2021, 2017 Lipid Panel 10/22/2025 10/22/2024, 09/07, 09/14/2022, Additional history exists Fall Risk Assessment 01/10/2026 01/10/2025 eGFR 01/10/2026 01/10/2025, 060 01/2025, 12/03/2024, Additional history exists Zoster Vaccine Completed 05/31/2021, 03/29/2021 Medical Devices Implanted Type Area Manufacturing Operations Manager Device Identifier Shelf Expiration Date Model / Serial / Lot Fatima [employer] Valve Heart 26mm Heather 3 Transcatheter [id number] - [id number] - [id number] Implanted:Qty: 1 on 01/09/2025 by Andrzej Valentin MD at [facility] Prosthetic Valve Right: Aortic Valve [employer] 07/08/2027 [id number] / [id number] / [employer] Device Vascular Closure Femoral Artery Bioabsorbable Dual Method Vascade 6-7fr Collagen [id number] - S0 - [id number] Implanted:Qty: 1 on 12/18/2024 by Pancho Rodriguez MD at [facility] Vascular Closure Device [employer] 10/28/2026 [id number] / 0 / [id number] [employer] Device Vascular Closure Celt Acd 5fr Sterile Kclt-05 - S0 - [id number] Implanted:Qty: 1 on 12/18/2024 by Pancho Rodriguez MD at [facility] Vascular Closure Device [employer] 04/30/2027 KCLT-05 / 0 / [id number] [employer] 18f Manta Vascular Closure Device 2115 - [id number] Implanted:Qty: 1 on 01/09/2025 by Andrzej Valentin MD at [facility] Vascular Closure Device Right: Common Femoral Artery [employer] 07/10/2025 2115 / / [id number] [employer] Device Vascular Closure Celt Acd 5fr Sterile [facility]-05 - [id number] Implanted:Qty: 1 on 01/09/2025 by Andrzej Valentin MD at [facility] Vascular Closure Device Right: Aortic Valve [employer] 04/30/2027 [facility]- [id number] Procedures Procedure Name Priority Date/Time Associated Diagnosis Comments TRANSTHORACIC ECHO (TTE) COMPLETE W DOPPLER/CF WO CONTRAST Routine 03/09/2025 1:11 PM CDT Nonrheumatic aortic valve stenosis EGFR Routine 01/10/2025 3:07 AM CDT POCT LIPID PANEL Routine 10/22/2024 1:06 PM CDT Essential hypertension HEMOGLOBIN A1C Routine 11/28/2018 10:07 AM CDT from Last 3 Months or Most Recently Relevant to Health Maintenance Results * TRANSTHORACIC ECHO (TTE) COMPLETE W DOPPLER/CF WO CONTRAST (03/09/2025 1:11 PM CDT) EF Mod BP 63 % CONS SCIMAGE Anatomical Region Laterality Modality Ultrasound 03/09/2025 12:1 8 PM CDT Narrative 03/09/2025 4:31 PM CDT [facility] [address] [place] [id number] ECHOCARDIOGRAM Patient Name: ELSA ENGEL : 1945 (80y ) Gender: M Study Date: 03/09/2025 12:18:28 PM Ht(Inch): 74 Wt(Lb): 171.08 BSA: 2.01 Manager Electronic: [email or web address] Order Provider: PANCHO RODRIGUEZ BMI: 21.96 BP: 136/79 Ref Provider: THEODOS, PANCHO - PROCEDURES: Echocardiographic Report: Transthoracic Echocardiogram with complete 2D, M-Mode, Spectral and Color Flow Doppler examination. 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 MEASUREMENTS: 2D/MM Value Range Doppler Value Range IVSd 2D 1.16 cm [ 0.60 - 1.00 ] AV Peak Yasmany 2.00 m/s [ 1.00 - 1.70 ] LVIDd 2D 4.21 cm [ 4.20 - 5.80 ] AV Peak PG 16.0 mmHg LVIDs 2D 2.97 cm [ 2.50 - 4.00 ] AV Mean PG 8.6 mmHg LVPWd 2D 1.12 cm [ 0.60 - 1.00 ] AV VTI 40.8 cm EF Mod BP 63 % [ 52 - 72 ] YAMILETH VTI 1.7 cm2 LA Dimen 2D 3.98 cm [ 3.00 - 4.00 ] LVOT Peak Yasmany 0.86 m/s [ 0.70 - 1.10 ] AoR Diam 2D 3.41 cm [ 3.10 - 3.70 ] LVOT Diam 2.2 cm AoR Diam 2D Index 1.70 LVOT Peak PG 3.0 mmHg RA Volume 21.30 ml LVOT VTI 20.9 cm LA Volume Index 30.70 ml/m2 [ 16.00 - 34.00 ] MV Peak PG 7.1 mmHg TAPSE 1.80 cm [ 1.71 - 5.00 ] MV Mean PG 2.2 mmHg MV E Peak Yasmayn 1.0 m/s [ 0.6 - 1.3 ] MV A Peak Yasmany 1.3 m/s [ 1.0 - 1.2 ] MV PHT 85.0 ms [ 20.0 - 100.0 ] MV Decel Time 196.0 ms [ 104.0 - 258.0 ] MVA PHT 2.6 ms MV E/A Ratio 0.8 TR Peak Yasmany 2.1 m/s [ 1.0 - 2.8 ] TR Peak PG 22 mmHg PV Peak Yasmany 1.0 m/s [ 0.4 - 0.8 ] PV Peak PG 4.2 mmHg Lat E` Yasmany 0.11 m/s [ 0.10 - 0.15 ] Septal E` 0.06 m/s [ 0.08 - 0.15 ] E/E` 9.09 RV S` 0.10 m/s 2D/MM Value Range Doppler Value Range - FINDINGS: BP: Blood pressure: 136/79 mmHg. Left Ventricle: Normal global and regional left ventricular systolic function. Ejection Fraction (Simpsons) is measured at 63 %. Normal left ventricular diastolic function. Normal left ventricular cavity size. LV wall thickness is within normal limits. GLPS is normal. Right Ventricle: Normal right ventricular systolic function. Normal right ventricular size. Left Atrium: The left atrium is normal in size. Right Atrium: The right atrium is normal in size. Atrial Septum: Normal appearing atrial septum. Mitral Valve: Normal mitral valve appearance and function. Aortic Valve: There is no aortic regurgitation. Normal functioning bioprosthetic aortic valve. Tricuspid Valve: Normal tricuspid valve appearance and function. Pulmonic Valve: Normal appearance and function of the pulmonic valve. Pericardium: Normal appearing pericardial thickness. No significant pericardial effusion. Aortic Root and Aorta: The sinuses of Valsalva are normal. Normal caliber aortic root. Normal sized ascending aorta. Normal sized descending aorta. Aortic Arch: Normal caliber aortic arch. IVC: Normal appearance of the inferior vena cava. CONCLUSIONS: 1. Normal global and regional left ventricular systolic function. Ejection Fraction (Simpsons) is measured at 63 %. Normal left ventricular diastolic function. Normal left ventricular cavity size. LV wall thickness is within normal limits. GLPS is normal. 2. Normal right ventricular systolic function. Normal right ventricular size. 3. There is no aortic regurgitation. Normal functioning bioprosthetic aortic valve. 4. Normal appearing pericardial thickness. No significant pericardial effusion. Electronically Signed By: Pancho Rodriguez MD 03/09/2025 4:30:32 PM CDT Procedure Note Pancho Rodriguez MD - 03/09/2025 [facility] [address] [place] [id number] ECHOCARDIOGRAM Patient Name: ELSA ENGEL : 1945 (80y ) Gender: M Study Date: 03/09/2025 12:18:28 PM Ht(Inch): 74 Wt(Lb): 171.08 BSA: 2.01 Manager Electronic: BC Order Provider: PANCHO RODRIGUEZ BMI: 21.96 BP: 136/79 Ref Provider: PANCHO RODRIGUEZ - PROCEDURES: Echocardiographic Report: Transthoracic Echocardiogram with complete 2D,M-Mode, Spectral and Color Flow Doppler examination. 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 MEASUREMENTS: 2D/MM Value Range DopplerValue Range IVSd 2D 1.16 cm [ 0.60 - 1.00 ] AV Peak Vel2.00 m/s [ 1.00 - 1.70 ] LVIDd 2D 4.21 cm [ 4.20 - 5.80 ] AV Peak PG16.0 mmHg LVIDs 2D 2.97 cm [ 2.50 - 4.00 ] AV Mean PG8.6 mmHg LVPWd 2D 1.12 cm [ 0.60 - 1.00 ] AV VTI40.8 cm EF Mod BP 63 % [ 52 - 72 ] YAMILETH VTI1.7 cm2 LA Dimen 2D 3.98 cm [ 3.00 - 4.00 ] LVOT Peak Vel0.86 m/s [ 0.70 - 1.10 ] AoR Diam 2D 3.41 cm [ 3.10 - 3.70 ] LVOT Diam2.2 cm AoR Diam 2D Index 1.70 LVOT Peak PG3.0 mmHg RA Volume 21.30 ml LVOT VTI20.9 cm LA Volume Index 30.70 ml/m2 [ 16.00 - 34.00 ] MV Peak PG7.1 mmHg TAPSE 1.80 cm [ 1.71 - 5.00 ] MV Mean PG2.2 mmHg MV E Peak Yasmany 1.0 m/s [ 0.6 - 1.3 ] MV A Peak Yasmany 1.3 m/s [ 1.0 - 1.2 ] MV PHT 85.0 ms [ 20.0 - 100.0 ] MV Decel Time 196.0 ms [ 104.0 - 258.0 ] MVA PHT 2.6 ms MV E/A Ratio 0.8 TR Peak Yasmany 2.1 m/s [ 1.0 - 2.8 ] TR Peak PG 22 mmHg PV Peak Yasmany 1.0 m/s [ 0.4 - 0.8 ] PV Peak PG 4.2 mmHg Lat E` Yasmany 0.11 m/s [ 0.10 - 0.15 ] Septal E` 0.06 m/s [ 0.08 - 0.15 ] E/E` 9.09 RV S` 0.10 m/s 2D/MM Value Range DopplerValue Range - FINDINGS: BP: Blood pressure: 136/79 mmHg. Left Ventricle: Normal global and regional left ventricular systolicfunction. Ejection Fraction (Simpsons) is measured at 63 %. Normal left ventricular diastolicfunction. Normal left ventricular cavity size. LV wall thickness is within normallimits. GLPS is normal. Right Ventricle: Normal right ventricular systolic function. Normal rightventricular size. Left Atrium: The left atrium is normal in size. Right Atrium: The right atrium is normal in size. Atrial Septum: Normal appearing atrial septum. Mitral Valve: Normal mitral valve appearance and function. Aortic Valve: There is no aortic regurgitation. Normal functioningbioprosthetic aortic valve. Tricuspid Valve: Normal tricuspid valve appearance and function. Pulmonic Valve: Normal appearance and function of the pulmonic valve. Pericardium: Normal appearing pericardial thickness. No significantpericardial effusion. Aortic Root and Aorta: The sinuses of Valsalva are normal. Normal caliberaortic root. Normal sized ascending aorta. Normal sized descending aorta. Aortic Arch: Normal caliber aortic arch. IVC: Normal appearance of the inferior vena cava. CONCLUSIONS: 1. Normal global and regional left ventricular systolic function. EjectionFraction (Simpsons) is measured at 63 %. Normal left ventricular diastolicfunction. Normal left ventricular cavity size. LV wall thickness is within normal limits. GLPSis normal. 2. Normal right ventricular systolic function. Normal right ventricularsize. 3. There is no aortic regurgitation. Normal functioning bioprostheticaortic valve. 4. Normal appearing pericardial thickness. No significant pericardialeffusion. Electronically Signed By: Pancho Rodriguez MD 03/09/2025 4:30:32 PM CDT us Pancho Rodriguez MD CV [...] MD LAB BLOOD ORDERABLES Final Resul t [facility] [address] Department [place] [address] * POCT lipid panel (10/22/2024 1:06 PM CDT) Cholesterol, POC 100 mg/dL HDL, POC 26 mg/dL Triglycerides, POC 143 mg/dL LDL Cholesterol POC 45.4 mg/dL Capillary blood 10/22/2024 1 :06 PM CDT us Isidro Anthony MD POINT OF CARE TEST ORDERAB LES Final Result * (ABNORMAL) Hemoglobin A1c (11/28/2018 10:07 AM CDT) Hgb A1C 7.7(H) <5.7 % of total Hgb [facility] Comment: For someone without known diabetes, a [...] Agency Comment Performing Organization Information: Site ID: [facility] Name: [employer] Address: [address] [place] [address] [place] [phone] Director: Andi Espinoza D.O., MPH us Isidro Shah MD LAB BLOOD ORDERABLES Silva l Result [facility] Collado from Last 3 Months or Most Recently Relevant to Health [place] [address] [place] [address] MEDICARE [facility] UHC MEDICARE ADVANTAGE [facility] [place] [address] Advance Directives For more information, please contact: [phone] Documents on File Type Date Recorded Patient Finishing Technician Expl anation ADVANCE DIRECTIVE 08/15/2018 12:49 PM ADVANCE DIRECTIVE 08/15/2018 12:49 PM * Full Code (Latest Code Status on File) Date Activated Date Inactivated Comments 01/09/2025 6:15 AM 01/10/2025 5:49 PM * Full Code Date Activated Date Inactivated Comments 08/12/2018 10:04 AM 08/20/2018 4:46 PM Care Teams Disk Grinder Relationship Specialty Start Date End Date Isidro Shah MD PCP - General 06/09/13 Isidro Anthony MD Consulting Physician Cardiology 09/04/22 Isidro Anthony MD [address] [place] [address] Referring Physician Cardiology 11/14/24 Pancho Rodriguez MD [address] [place] [address] Consulting Physician Cardiology 01/09/25
--- OUTSIDE RECORDS SUMMARY | 2025-04-21 11:05 | XMS_ITS | Encounter Summary ---
Author Organization [facility] Healthcare Address [address] [place] [address] Care Team Providers Care Band Builder Name Role Phone Isidro Shah MD Primary Care Provider [phone] Isidro Anthony MD Unavailable [phone] Isidro Anthony MD Unavailable [phone] Pancho Spence MD Unavailable Encounter Details Date Type Department Care Team (Latest Contact Info) Description 03/10/2025 Results Follow-Up [facility] [address] [place] [address] Pancho Spence MD [address] [address] [place] [address] Transthoracic Echo (TTE) Complete W Doppler/CF Social History Tobacco Use Types Packs/Day Years [...] on file 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 Gender Identity Not on file Sexual Orientation Not on file documented as of this encounter Plan of Treatment Not on file documented as of this encounter Visit Diagnoses Not on filedocumented in this encounter Care Teams Band Builder Relationship Specialty Start Date End Date Isidro Shah MD PCP - General 06/09/13 Isidro Anthony MD Consulting Physician Cardiology 09/04/22 Isidro Anthony MD [address] [place] [address] Referring Physician Cardiology 11/14/24 Pancho Spence MD [address] [place] [address] Consulting Physician Cardiology 01/09/25 documented as of this encounter
--- OUTSIDE RECORDS SUMMARY | 2025-04-21 11:05 | XMS_ITS | Clinical Summary ---
Author Organization [facility] Address [address] [place] [address] Care Team Providers Care Cloth Shearer Name Role Phone Isidro Shah MD Primary Care Provider [phone] Allergies Active Allergy Reactions Criticality Noted Date [...] mouth. Active fluticasone propionate (FLONASE) 50 mcg/spray [place], Suspension nasal inhaler Administer 1 [place] in each nostril. Active dutasteride (AVODART) 0.5 [...] Encounters Date Type Department Care Team Description 04/21/2025 10:00 AM CDT Office Visit [facility] Oncology and Hematology - [place] [address] [place] [id number] Clemente Childs MD Iron deficiency anemia due to chronic blood loss (Primary Dx) 03/24/2025 External Device Data STL ABSTRACTION Provider, Abstract 03/24/2025 External Device Data STL ABSTRACTION Provider, Abstract 03/11/2025 External Device Data STL ABSTRACTION Provider, Abstract 02/18/2025 External Device Data STL ABSTRACTION Provider, Abstract 02/18/2025 External Device Data STL ABSTRACTION Provider, Abstract 02/18/2025 External Device Data STL ABSTRACTION Provider, Abstract 02/17/2025 External Device Data STL ABSTRACTION Provider, Abstract 01/20/2025 External Device Data STL ABSTRACTION Provider, [...] on file Legal Sex Male 1:59 PM ADDICTION 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 Gender Identity Not on file Sexual Orientation [...] (162 lb) 04/21/2025 10:01 AM CDT Height 188 cm (6' 2) 04/11/2022 11:41 AM CDT Body Mass Index 20.8 04/11/2022 11:41 AM CDT Plan of Treatment Upcoming Encounters Date Type Department Care Team (Late st Contact Info) Description 03/30/2026 11:15 AM CDT Office Visit [facility] Oncology and Hematology - [place] [address] [facility] [address] [place] [address] Clemente Childs MD [address] [place] [address] Health Maintenance Due Date Last Done Comments DTAP/TDAP/TD VACCINES (1 - Tdap) 04/03/2009 04/02/20 09 RSV VACCINE (60+ or ) (1 - 1-dose 75+ series) 2021 [place] Preventative Visit/Annual Wellness Visit 08/06/2024 INFLUENZA VACCINE (#1) 2025 , 05/28/2020, 04/22/2020, Additional history exists PNEUMOCOCCAL VACCINE 50+ YEARS Completed 09/01/2016 , 04/28/2011 COLORECTAL SCREENING Discontinued 09/11/2019 Colorectal Cancer Screening Discontinued ZOSTER VACCINE Completed 05/31/2021, 03/29/2021 FIT-DNA Q 3 years Discontinued FIT/FOBT Q 1 year Discontinued Flex Sig/CT Colonography Q 5 [place] [address] [facility] [id number] Member Subscriber Plan / Payer (Ef fective 2022-Present) Name:Bhanu Delgado Relation to Subscriber:Self Name:Bhanu Delgado Payer ID:[id number] (NAIC) Type:PPO Address: [place] [id number] Care Teams Cloth Shearer Relationship Specialty Start Date End Date Isidro Shah MD PCP - General Family Practice 07/24/19
== END 2025-04-21 09:42 | disposition home or self-care (01) ==
LOC: ANHLAB 09:42
PROVIDERS: PCP Family Medicine; Visit Provider Internal Medicine Hematology & Oncology
DX: D50.0 Iron deficiency anemia secondary to blood loss (chronic) (principal)
CPT/HCPCS: 36415; 80047; 85025

== ENCOUNTER 2025-05-18 08:45 | Outpatient (RCR) | payer MEDICARE, SELFPAY ==
[2025-02-17 11:35] VITALS: PULSE 78
== END 2025-05-18 09:43 | disposition home or self-care (01) ==
LOC: ANHCPREHAB 08:45
PROVIDERS: PCP Family Medicine; Visit Provider Internal Medicine
DX: Z95.2 Presence of prosthetic heart valve (principal)
CPT/HCPCS: 93798

== ENCOUNTER 2025-06-17 09:04 | Outpatient (CLI) | payer MEDICARE, SELFPAY ==
--- OUTSIDE RECORDS SUMMARY | 2025-06-17 09:45 | XMS_ITS | Clinical Summary ---
[facility] Organization [facility] Address [address] [place] [address] Care Team Providers Care Chair Finisher Name Role Phone Isidro Shah MD Primary Care Provider [phone] Allergies Active Allergy Reactions Criticality Noted Date [...] mouth. Active fluticasone propionate (FLONASE) 50 mcg/spray [place], Suspension nasal inhaler Administer 1 [place] in each nostril. Active dutasteride (AVODART) 0.5 [...] Encounters Date Type Department Care Team Description 06/03/2025 External Device Data [facility] Provider, Abstract 06/02/2025 External Device Data [facility] Provider, Abstract 05/27/2025 External Device Data [facility] Provider, Abstract 05/26/2025 External Device Data [facility] Provider, Abstract 04/21/2025 10:00 AM CDT Office Visit [facility] [address] [place] [address] Clemente Childs MD Iron deficiency anemia due to chronic blood loss (Primary Dx) 04/21/2025 External Device Data [facility] Provider, Abstract 04/21/2025 External Device Data [facility] Provider, Abstract 04/21/2025 Orders Only [facility] [address] [place] [address] Clemente Childs MD 03/24/2025 External Device Data [facility] Provider, [...] on file Legal Sex Male 1:59 PM [employer] Gender Identity Not on file Sexual Orientation [...] Description 03/30/2026 11:15 AM CDT Office Visit [facility] [address] [facility] [address] [place] [address] Clemente Childs MD [address] [place] [address] Health Maintenance Due Date Last Done Comments DIABETES ANNUAL FOOT EXAM 02/23/1964 DIABETES MICROALBUMIN ANNUAL SCREEN 02/23/1964 LDL CHOLESTEROL ANNUAL 02/23/1964 DTAP/TDAP/TD VACCINES (1 - Tdap) 04/03/2009 04/02/20 09 RSV VACCINE (60+ or ) (1 - 1-dose 75+ series) 2021 DIABETES ANNUAL RETINAL EXAM 12/22/2022, 12/09/2020, 12/09/2020 DIABETES HBA1C Q 6 MONTHS 01/10/20232021, 03/15/2022, 11/18/2021, Additional history exists INFLUENZA VACCINE (#1) 2025 , 05/28/2020, 04/22/2020, Additional history exists PNEUMOCOCCAL VACCINE 50+ YEARS Completed 09/01/2016 , 04/28/2011 COLORECTAL SCREENING Discontinued 09/11/2019 Colorectal Cancer Screening Discontinued ZOSTER VACCINE Completed 05/31/2021, 03/29/2021 FIT-DNA Q 3 years Discontinued FIT/FOBT Q 1 year Discontinued Flex Sig/CT Colonography Q 5 years Discontinued Procedures Procedure Name Priority Date/Time Associated Diagnosis Comments CBC WITH AUTODIFFERENTIAL Routine 2024 3:25 PM CDT BASIC METABOLIC PANEL Routine 04/21/2025 3:23 PM CDT from Last 3 Months Results * CBC WITH AUTODIFFERENTIAL (04/21/2025 3:25 PM CDT) Blood us Clemente Childs MD HEMATOLOGY ORDERABLES Final Res ult * BASIC METABOLIC PANEL (04/21/2025 3:23 PM CDT) Blood us Clemente Childs MD CHEMISTRY ORDERABLES Final Resu lt from Last [address] [place] [id number] [facility] [id number] Care Teams Chair Finisher Relationship Specialty Start Date End Date Isidro Shah MD PCP - General Family Practice 07/24/19
--- OUTSIDE RECORDS SUMMARY | 2025-06-17 09:45 | XMS_ITS | Clinical Summary ---
Author Organization [facility] D Address [address] [place] [address] Care Team Providers Care Development Professional Name Role Phone Kim Shah MD Primary Care Provider [phone] Kim Garcia MD Unavailable Kim Garcia MD Unavailable [phone] Pancho Spence MD Unavailable Allergies Active Allergy Reactions Criticality [...] (10 mg total) by mouth daily Active Jardiance [...] procedures 4 tablet/capsu le 4 5 Active metoprolol XL (TOPROL-XL) 25 mg extended release tablet Take 1 tablet (25 mg total) by mouth daily 5 Active triamcinolone (KENALOG) 0.1 % cream APPLY TOPICALLY TO THE AFFECTED AREA FOUR TIMES DAILY 5 Active Active Problems Problem Noted Date Diagnosed Date Aortic stenosis, severe 01/09/2025 S/P TAVR (transcatheter aortic valve replacement ) 01/09/2025 Encounter for examination fo r normal comparison and control in clinical research program 12/24/2024 Nonrheumatic aortic valve stenosis 09/09/2021 Assessment & Plan (09/09/2021 10:34 AM LOANS CONSULTANT): Aortic stenosis was mild when assessed in [...] 08/10/2017 Assessment & Plan (09/09/2021 10:33 AM LOANS CONSULTANT): Blood pressure is a little on the low side. Will decrease amlodipine from 10 mg daily to 5 mg daily and continue metoprolol 50 mg daily, Altace 10 mg daily, and terazosin 5 mg nightly. He is to monitor his blood pressure at home. Assessment & Plan (09/10/2020 4:10 PM LOANS CONSULTANT): Blood pressure is adequately controlled on current regimen. No change was made. Assessment & Plan (08/23/2019 10:51 AM LOANS CONSULTANT): Blood pressure is adequately controlled on current regimen. No change was made. Assessment & Plan (12/13/2018 9:38 AM CDT): Blood pressure is adequately controlled on current regimen. No change was made. Assessment & Plan (09/13/2018 9:34 AM LOANS CONSULTANT): Blood pressure is adequately controlled on current regimen. No change was made. Assessment & Plan (08/13/2018 6:16 PM LOANS CONSULTANT): Blood pressure is adequately controlled on current regimen. No change was made. Assessment & Plan (08/09/2018 3:38 PM LOANS CONSULTANT): Blood pressure is adequately controlled on current regimen. No change was made. Assessment & Plan (08/10/2017 6:35 PM LOANS CONSULTANT): Not ideally controlled. Increase metoprolol from 25 to 50 mg daily. He is to continue monitoring his heart rate and blood pressure and will let me know if they do not normalize. Dyslipidemia 08/10/2017 Assessment & Plan (09/09/2021 10:33 AM LOANS CONSULTANT): Point of care lipids today show an LDL of 42. Continue rosuvastatin 40 mg daily. Assessment & Plan (09/10/2020 4:10 PM LOANS CONSULTANT): On chronic lipid lowering therapy with good control. No changes made. Assessment & Plan (08/23/2019 10:52 AM LOANS CONSULTANT): On chronic lipid lowering therapy with good control. No changes made. Assessment & Plan (12/13/2018 9:41 AM CDT): On high-intensity statin therapy. Assessment & Plan (09/13/2018 9:34 AM LOANS CONSULTANT): Continue high-intensity statin therapy. Assessment & Plan (08/09/2018 3:39 PM LOANS CONSULTANT): Lipids are not controlled. Will increase rosuvastatin to 40 mg daily. Assessment & Plan (08/10/2017 6:36 PM LOANS CONSULTANT): On chronic lipid-lowering therapy. LDL today is 94. Continue atorvastatin 80 mg daily. Coronary artery disease of n ative artery of [place] heart with stable angina pectoris ([facility]) 06/18/2015 Overview (11/10/2016): Coronary arteriosclerosis in [place] artery Assessment & Plan (09/09/2021 10:34 AM LOANS CONSULTANT): Asymptomatic following coronary artery bypass grafting. Continue Plavix 75 mg daily and metoprolol 50 mg daily. His follow-up in one year will be with Dr. Garcia. Assessment & Plan (09/10/2020 4:10 PM LOANS CONSULTANT): Asymptomatic following extensive bypass surgery in 2019. Continue anti-platelet therapy. Assessment & Plan (08/23/2019 10:51 AM LOANS CONSULTANT): Asymptomatic following recent bypass surgery. Continue clopidogrel. Assessment & Plan (12/13/2018 9:38 AM CDT): No chest discomfort. Electrocardiogram is nonischemic. Continue clopidogrel. Assessment & Plan (09/13/2018 9:35 AM LOANS CONSULTANT): Recent coronary artery bypass grafting. He remains on clopidogrel. Needs to begin phase two cardiac rehab at [facility]. Also advised of the importance of good control of his diabetes to prevent progression of coronary artery disease. Assessment & Plan (08/13/2018 6:15 PM LOANS CONSULTANT): Severe three-vessel coronary artery disease, not amenable to coronary intervention. Holding Plavix and monitoring platelet function to determine optimal timing of surgery. Continue heparin and aspirin Assessment & Plan (08/10/2017 6:34 PM LOANS CONSULTANT): No symptoms of myocardial ischemia. Continue anti-platelet therapy. Resolved Problems Problem Noted Date Diagnosed Date Resolved Date Angina pectoris, unstable 08/09/2018 Overview (08/09/2018): Added automatically from request for surgery [id number] Assessment & Plan (08/09/2018 3:37 PM LOANS CONSULTANT): New onset exertional angina two months ago, [...] Encounters Date Type Department Care Team Description 05/18/2025 Telephone [facility] Cardiology [address], [place] [address] Kim Garcia MD 04/23/2025 1:45 PM CDT Office Visit [facility] Cardiology [address] [place] [address] Kim Garcia MD S/P TAVR (transcatheter aortic valve replacement) (Primary Dx); Coronary artery disease of [place] artery of [place] heart with stable angina pectoris (CMS/HCC) (HCC) 04/23/2025 11:22 AM CDT - 04/23/2025 11:59 PM CDT Hospital Encounter [facility] OP Cardiac Testing [address] [place] [address] Nonrheumatic aortic valve stenosis Discharge Disposition: Discharge to home or self care 04/23/2025 Telephone [facility] Cardiology [address] [place] [address] Kim Garcia MD 04/22/2025 Telephone [facility] Cardiology [facility] [place] [address] Kim Garcia MD from Last 3 Months Surgical History Surgery Date Site/Laterality Comments CORONARY STENT PLACEMENT Coronary Stent Placement UMBILICAL HERNIA REPAIR 08/06/2013 - 08/05/2014 Hernia repair, umbilical CARDIAC CATHETERIZATION CORONARY ARTERY BYPASS GRAFT 08-14-2018 x 5 VASECTOMY 1984 CARDIAC CATHETERIZATION 12/18/2024 N/A Procedure: RIGHT LEFT HEART CATHETERIZATION WITH CORONARY ANGIOGRAPHY GRAFT AND WITH OR WITHOUT LEFT VENTRICULOGRAPHY [id number]; Surgeon: Pancho Spence MD; Location: [facility] CARDIAC REFIN[facility]; Service: Cardiovascular; Laterality: N/A; Medical devices from this surgery are in the Medical Devices section. TRANSCATHETER AORTIC VALVE REPLACEMENT 01/09/2025 REPLACEMENT AORTIC VALVE - TRANSFEMORAL ENDOVASCULAR APPROACH 01/09/2025 Chest/N/A Procedure: REPLACEMENT AORTIC VALVE - TRANSFEMORAL ENDOVASCULAR APPROACH; Surgeon: Andrzej Valentin MD; Location: [facility] OPERATING ROOM; Service: Cardiothoracic; Laterality: N/A; 205 mGy 32.41 5.6 min Medical devices from this surgery are in the Medical Devices section. CARDIAC CATHETERIZATION 01/09/2025 Chest/N/A Procedure: TAVR - PERCUTANEOUS FEMORAL [id number]; Surgeon: Pancho Spence MD; Location: [facility] OPERATING ROOM; Service: Cardiovascular; Laterality: N/A; Medical devices from this surgery are in the Medical Devices section. Medical History Medical History Date Comments Coronary artery disease Diabetes mellitus 2005 Hypertension Cerebrovascular accident (CVA) (HCC) 1998 Stroke SHIN (iron deficiency anemia) Aortic stenosis Kidney stone 07/08/2015 Anxiety Family History Medical History Relation Name Comments Coronary artery disease Father Marah nary Artery Bypass Graft; Heart disease Father Hypertension Father Stroke Father Alzheimer's disease Mother Halima Heart disease Mother Halima Hypertension Mother Halima Diabetes Sister 1 Heart disease Sister 2 Relation Name Status Comments Father Alive Mother Halima Sister 1 Alive Sister 2 Social History Tobacco Use Types Packs/Day [...] on file Legal Sex Male 9:24 PM LOANS CONSULTANT Gender Identity Not on file Sexual Orientation Not on file Last Filed Vital Signs Vital Sign Reading Time Taken Comments Blood Pressure 106/62 04/23/2025 1:39 PM CDT Pulse 77 04/23/2025 1:39 PM CDT Temperature 37.4 C (99.4 F) 01/10/2025 12:39 PM CDT Respiratory Rate 20 01/10/2025 12:39 PM CDT Oxygen Saturation 96% 04/23/2025 1:39 PM CDT Inhaled Oxygen Concentration - - Weight 75 kg (165 lb 6.4 oz) 04/23/2025 1:39 PM CDT Height 188 cm (6' 2) 03/09/2025 1:16 PM CDT Body Mass Index 21.24 03/09/2025 1:16 PM CDT Plan of Treatment Health Maintenance Due Date Last Done Comments Albumin Creatinine Ratio, Urine 1945 Depression Screening 1945 Hepatitis C Screening 1945 Dilated Eye Exam 1945 Foot Exam 1945 Hepatitis B Screening 02/23/1964 DTaP/Tdap/Td Vaccine (1 - Tdap) 04/03/2009 9 Well Visit 65+ 2011 Hemoglobin A1C 05/30/2019 11/28/2018, 08/13/2018 Covid-19 Vaccine (4 - 2024-2 6 season) 2025 07/12/2021, 10/29/2020, 10/04/2020 Influenza Vaccine (#1) 2025 , 04/22/2020, 06/04/2018, Additional history exists Lipid Panel 10/22/2025 10/22/2024, 09/07, 09/14/2022, Additional history exists Fall Risk Assessment 01/10/2026 01/10/2025 eGFR 01/10/2026 01/10/2025, 0601/2025, 12/03/2024, Additional history exists Pneumococcal vaccine 65+ Completed 09/01/2016, 04/07 Zoster Vaccine Completed 05/31/2021, 03/29/2021 Medical Devices Implanted Type Area Glass Beveler Device Identifier Shelf Expiration Date Model / Serial / Lot Fatima [employer] Valve Heart 26mm Heather 3 Transcatheter [id number] - [id number] - [id number] Implanted:Qty: 1 on 01/09/2025 by Andrzej Valentin MD at [facility] Prosthetic Valve Right: Aortic Valve [employer] 07/08/2027 [id number] / [id number] / [employer] Device Vascular Closure Femoral Artery Bioabsorbable Dual Method Vascade 6-7fr Collagen [id number] - S0 - [id number] Implanted:Qty: 1 on 12/18/2024 by Pancho Spence MD at [facility] Vascular Closure Device [employer] 10/28/2026 [id number] / 0 / [id number] [employer] Device Vascular Closure Celt Acd 5fr Sterile [facility]-05 - S0 - [id number] Implanted:Qty: 1 on 12/18/2024 by Pancho Spence MD at [facility] Vascular Closure Device [employer] 04/30/2027 [facility] [id number] [employer] 18f Manta Vascular Closure Device 2114 [id number] Implanted:Qty: 1 on 01/09/2025 by Andrzej Valentin MD at [facility] Vascular Closure Device Right: Common Femoral Artery [employer] 07/10/2025 [id number] / / [id number] [employer] Device Vascular Closure Celt Acd 5fr Sterile [facility]-05 - [id number] Implanted:Qty: 1 on 01/09/2025 by Andrzej Valentin MD at [facility] Vascular Closure Device Right: Aortic Valve [employer] 04/30/2027 [facility] [id number] Procedures Procedure Name Priority Date/Time Associated Diagnosis Comments TRANSTHORACIC ECHO (TTE) COMPLETE W DOPPLER/CF WO CONTRAST Routine 04/24/2025 5:25 AM CDT Nonrheumatic aortic valve stenosis EGFR Routine 01/10/2025 3:07 AM CDT POCT LIPID PANEL Routine 10/22/2024 1:06 PM CDT Essential hypertension HEMOGLOBIN A1C Routine 11/28/2018 10:07 AM CDT from Last 3 Months or Most Recently Relevant to Health Maintenance Results * TRANSTHORACIC ECHO (TTE) COMPLETE W DOPPLER/CF WO CONTRAST (04/24/2025 5:25 AM CDT) Estimated EF 55-60 % CONS SCIMAGE Anatomical Region Laterality Modality Ultrasound 04/23/2025 11:4 0 AM CDT Narrative 04/23/2025 1:39 PM CDT [facility] [address] [facility] [place] [address] ECHOCARDIOGRAM Patient Name: ELSA ENGEL : 1945 (80y 1m) Sex: M Study Date: 04/23/2025 11:40:31 AM Ht(Inch): 74 Wt(Lb): 166.01 BSA: 1.98 Radiology Clerk: SCOTTIE Order Provider: KIM GARCIA BMI: 21.31 Ref Provider: KIM GARCIA - PROCEDURES: Echocardiographic Report: Transthoracic Echocardiogram with complete 2D, M-Mode, Spectral and Color Flow Doppler examination. 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 MEASUREMENTS: 2D/MM Value Range Doppler Value Range IVSd 2D 0.97 cm [ 0.60 - 1.00 ] AV Peak Yasmany 1.80 m/s [ 1.00 - 1.70 ] LVIDd 2D 5.00 cm [ 4.20 - 5.80 ] AV Peak PG 13.0 mmHg LVIDs 2D 2.98 cm [ 2.50 - 4.00 ] AV Mean PG 8.0 mmHg LVPWd 2D 0.84 cm [ 0.60 - 1.00 ] AV VTI 36.6 cm Estimated EF 55-60 % YAMILETH VTI 1.7 cm2 LA Dimension 2D 4.77 cm [ 3.00 - 4.00 ] LVOT Peak Yasmany 0.76 m/s [ 0.70 - 1.10 ] AoR Diam 2D 3.31 cm [ 3.10 - 3.70 ] LVOT Diam 2.2 cm AoR Diam 2D Index 1.67 LVOT Peak PG 2.3 mmHg RA Volume 18.10 ml LVOT VTI 17.2 cm LA Volume Index 28.50 ml/m2 [ 16.00 - 34.00 ] MV Peak PG 5.8 mmHg TAPSE 1.76 cm [ 1.71 - 5.00 ] MV Mean PG 2.7 mmHg MV E Peak Yasmany 0.8 m/s [ 0.6 - 1.3 ] MV A Peak Yasmany 0.9 m/s [ 1.0 - 1.2 ] MV PHT 107.1 ms [ 20.0 - 100.0 ] MV Decel Time 163.0 ms [ 104.0 - 258.0 ] MVA PHT 2.1 ms MV E/A Ratio 0.9 TR Peak Yasmany 2.1 m/s [ 1.0 - 2.8 ] TR Peak PG 18 mmHg RVSP 21.0 mmHg [ 10.0 - 36.0 ] RA Pressure 3.0 mmHg PV Peak Yasmany 1.1 m/s [ 0.4 - 0.8 ] PV Peak PG 4.8 mmHg Lat E` Yasmany 0.10 m/s [ 0.10 - 0.15 ] Septal E` 0.07 m/s [ 0.08 - 0.15 ] E/E` 8.00 RV S` 0.10 m/s 2D/MM Value Range Doppler Value Range - FINDINGS: Left Ventricle: Low normal global left ventricular systolic function. Normal or near normal left ventricular diastolic function. Ejection Fraction is estimated at 55-60 %. Normal left ventricular cavity size. LV wall thickness is within normal limits. Right Ventricle: Normal right ventricular systolic function. Normal right ventricular size. Left Atrium: The left atrium is normal in size. Right Atrium: The right atrium is normal in size. Atrial Septum: Seemingly somewhat hypermobile atrial septum. Cannot exclude PFO by atrial septal color Doppler interrogation. Mitral Valve: Borderline mild mitral stenosis. Trace mitral valve regurgitation. Moderate mitral annular calcification. Aortic Valve: Aortic valve not well visualized. There is no aortic stenosis. There is no aortic regurgitation. Normal functioning bioprosthetic aortic valve. Tricuspid Valve: Normal appearance of the tricuspid leaflets. Trace tricuspid regurgitation. TR envelope inadequate to estimate RVSP. Pulmonic Valve: Grossly normal appearing pulmonic valve. There is no pulmonic stenosis. Mild to moderate pulmonic regurgitation. Pericardium: No significant pericardial effusion. Aortic Root and Aorta: Normal caliber aortic root. Upper normal sized ascending aorta. Aortic Arch: The aortic arch is poorly visualized. IVC: Normal appearance of the inferior vena cava. CONCLUSIONS: 1. Low normal global left ventricular systolic function. Normal or near normal left ventricular diastolic function. Ejection Fraction is estimated at 55-60 %. Normal left ventricular cavity size. LV wall thickness is within normal limits. 2. Normal right ventricular systolic function. Normal right ventricular size. 3. Borderline mild mitral stenosis. Trace mitral valve regurgitation. Moderate mitral annular calcification. 4. Aortic valve not well visualized. There is no aortic stenosis. There is no aortic regurgitation. Normal functioning bioprosthetic aortic valve. 5. Grossly normal appearing pulmonic valve. There is no pulmonic stenosis. Mild to moderate pulmonic regurgitation. Electronically Signed By: Kim garcia 04/23/2025 1:38:13 PM CDT Procedure Note Kim Garcia MD - 04/23/2025 [facility] [address] [place] [address] ECHOCARDIOGRAM Patient Name: ELSA ENGEL : 1945 (80y 1m) Sex: M Study Date: 04/23/2025 11:40:31 AM Ht(Inch): 74 Wt(Lb): 166.01 BSA: 1.98 Radiology Clerk: SCOTTIE Order Provider: KIM GARCIA BMI: 21.31 Ref Provider: KIM GARCIA - PROCEDURES: Echocardiographic Report: Transthoracic Echocardiogram with complete 2D,M-Mode, Spectral and Color Flow Doppler examination. 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 MEASUREMENTS: 2D/MM Value Range DopplerValue Range IVSd 2D 0.97 cm [ 0.60 - 1.00 ] AV Peak Vel1.80 m/s [ 1.00 - 1.70 ] LVIDd 2D 5.00 cm [ 4.20 - 5.80 ] AV Peak PG13.0 mmHg LVIDs 2D 2.98 cm [ 2.50 - 4.00 ] AV Mean PG8.0 mmHg LVPWd 2D 0.84 cm [ 0.60 - 1.00 ] AV VTI36.6 cm Estimated EF 55-60 % YAMILETH VTI1.7 cm2 LA Dimension 2D 4.77 cm [ 3.00 - 4.00 ] LVOT Peak Vel0.76 m/s [ 0.70 - 1.10 ] AoR Diam 2D 3.31 cm [ 3.10 - 3.70 ] LVOT Diam2.2 cm AoR Diam 2D Index 1.67 LVOT Peak PG2.3 mmHg RA Volume 18.10 ml LVOT VTI17.2 cm LA Volume Index 28.50 ml/m2 [ 16.00 - 34.00 ] MV Peak PG5.8 mmHg TAPSE 1.76 cm [ 1.71 - 5.00 ] MV Mean PG2.7 mmHg MV E Peak Yasmany 0.8 m/s [ 0.6 - 1.3 ] MV A Peak Yasmany 0.9 m/s [ 1.0 - 1.2 ] MV PHT 107.1 ms [ 20.0 - 100.0 ] MV Decel Time 163.0 ms [ 104.0 - 258.0 ] MVA PHT 2.1 ms MV E/A Ratio 0.9 TR Peak Yasmany 2.1 m/s [ 1.0 - 2.8 ] TR Peak PG 18 mmHg RVSP 21.0 mmHg [ 10.0 - 36.0 ] RA Pressure 3.0 mmHg PV Peak Yasmany 1.1 m/s [ 0.4 - 0.8 ] PV Peak PG 4.8 mmHg Lat E` Yasmany 0.10 m/s [ 0.10 - 0.15 ] Septal E` 0.07 m/s [ 0.08 - 0.15 ] E/E` 8.00 RV S` 0.10 m/s 2D/MM Value Range DopplerValue Range - FINDINGS: Left Ventricle: Low normal global left ventricular systolic function.Normal or near normal left ventricular diastolic function. Ejection Fraction is estimatedat 55- 60 %. Normal left ventricular cavity size. LV wall thickness is within normallimits. Right Ventricle: Normal right ventricular systolic function. Normal rightventricular size. Left Atrium: The left atrium is normal in size. Right Atrium: The right atrium is normal in size. Atrial Septum: Seemingly somewhat hypermobile atrial septum. Cannotexclude PFO by atrial septal color Doppler interrogation. Mitral Valve: Borderline mild mitral stenosis. Trace mitral valveregurgitation. Moderate mitral annular calcification. Aortic Valve: Aortic valve not well visualized. There is no aorticstenosis. There is no aortic regurgitation. Normal functioning bioprosthetic aortic valve. Tricuspid Valve: Normal appearance of the tricuspid leaflets. Tracetricuspid regurgitation. TR envelope inadequate to estimate RVSP. Pulmonic Valve: Grossly normal appearing pulmonic valve. There is nopulmonic stenosis. Mild to moderate pulmonic regurgitation. Pericardium: No significant pericardial effusion. Aortic Root and Aorta: Normal caliber aortic root. Upper normal sizedascending aorta. Aortic Arch: The aortic arch is poorly visualized. IVC: Normal appearance of the inferior vena cava. CONCLUSIONS: 1. Low normal global left ventricular systolic function. Normal or nearnormal left ventricular diastolic function. Ejection Fraction is estimated at 55-60 %.Normal left ventricular cavity size. LV wall thickness is within normal limits. 2. Normal right ventricular systolic function. Normal right ventricularsize. 3. Borderline mild mitral stenosis. Trace mitral valve regurgitation.Moderate mitral annular calcification. 4. Aortic valve not well visualized. There is no aortic stenosis. There isno aortic regurgitation. Normal functioning bioprosthetic aortic valve. 5. Grossly normal appearing pulmonic valve. There is no pulmonic stenosis.Mild to moderate pulmonic regurgitation. Electronically Signed By: Kim garcia 04/23/2025 1:38:13 PM CDT us Kim Garcia MD CV ECHO PROCEDURES Final R esult * eGFR (01/10/2025 3:07 AM CDT) eGFR [...] CDT 01/10/2025 3:57 AM CDT us Pancho Spence MD LAB BLOOD ORDERABLES Final Resul t [facility] [address] Department [place] [address] * POCT lipid panel (10/22/2024 1:06 PM CDT) Cholesterol, POC 100 mg/dL HDL, POC 26 mg/dL Triglycerides, POC 143 mg/dL LDL Cholesterol POC 45.4 mg/dL Capillary blood 10/22/2024 1 :06 PM CDT us Kim Garcia MD POINT OF CARE TEST [...] Performing Organization Information: Site ID: [facility] Name: Lalo Mckeon Address: [address] [place] [address] Director: Andi Espinoza D.O., MPH Kim Shah MD LAB BLOOD ORDERABLES Silva l Result [facility] [place] from Last 3 Months or Most Recently Relevant to Health Maintenance Insurance MEDICARE [facility] MEDICARE ADVANTAGE [facility] MEDICARE ADVANTAGE Advance Directives For more information, please contact: [phone] Documents on File Type Date Recorded Patient Telephone Maintainer Expl anation ADVANCE DIRECTIVE 08/15/2018 12:49 PM ADVANCE DIRECTIVE 08/15/2018 12:49 PM * Full Code (Latest Code Status on File) Date Activated Date Inactivated Comments 01/09/2025 6:15 AM 01/10/2025 5:49 PM * Full Code Date Activated Date Inactivated Comments 08/12/2018 10:04 AM 08/20/2018 4:46 PM Care Teams Development Professional Relationship Specialty Start Date End Date Kim Shah MD PCP - General 06/09/13 Kim Garcia MD Consulting Physician Cardiology 09/04/22 Kim Garcia MD [address] [facility] [address] [place] [address] Referring Physician Cardiology 11/14/24 Pancho Spence MD [address] [facility] [address] [place] [address] Consulting Physician Cardiology 01/09/25
[2025-06-17 13:23] LABS: Alanine Aminotransferase 23 U/L (6-50); Albumin Level 4.4 g/dL (3.5-5.1); Alkaline Phosphatase 77 U/L (38-126); Anion Gap 11 mmol/L (4-12); Aspartate Amino Transferase 45 U/L (17-59); Bilirubin,Total 0.6 mg/dL (0.2-1.3); Blood Urea Nitrogen 20 mg/dL (9-20); Calcium 9.5 mg/dL (8.4-10.2); Carbon Dioxide 25 mmol/L (22-30); Chloride 101 mmol/L (98-107); Estimated Glomerular Filt Rate > 60; Glucose 217 mg/dL (65-110); Potassium 4.3 mmol/L (3.4-5.0); Sodium 137 mmol/L (137-145); Total Protein 7.4 g/dL (6.3-8.2)
[2025-06-17 14:14] LABS: Hemoglobin A1C 12.8 % (<5.7)
== END 2025-06-17 09:05 | disposition home or self-care (01) ==
LOC: ANHGOSHLAB 09:05
PROVIDERS: PCP Family Medicine; Visit Provider Family Medicine
DX: E11.8 Type 2 diabetes mellitus with unspecified complications (principal)
CPT/HCPCS: 36415; 80053; 83036